=== PATIENT | male | born 1975 ===

== ENCOUNTER 2020-07-07 10:19 | Outpatient (REF) | payer OTHER, SELFPAY ==
[2020-07-07 11:27] LABS: Alanine Aminotransferase 11 U/L (0-40); Albumin Level 4.2 g/dL (3.5-5.0); Alkaline Phosphatase 76 U/L (39-117); Anion Gap 12 (12-20); Aspartate Amino Transferase 10 U/L (5-37); Bilirubin Total 0.4 mg/dL (0.0-1.0); Blood Urea Nitrogen 8 mg/dL (9-16); Calcium 9.3 mg/dL (8.4-10.2); Carbon Dioxide 29 mmol/L (22-29); Chloride 108 mmol/L (96-108); Cholesterol 130 mg/dL; Estimated Glomerular Filt Rate > 60; Glucose Fasting 140 mg/dL (60-99); HDL Cholesterol 40 mg/dL; LDL Cholesterol Calculated 76 mg/dl; Potassium 4.1 mmol/L (3.3-5.1); Sodium 145 mmol/L (135-145); Total Protein 6.9 g/dL (6.5-8.0); Triglycerides 73 mg/dL
[2020-07-07 11:42] LABS: Prostate Specific Antigen Scr 0.13 ng/mL (<0.05-4.0); TSH reflex Free T4 0.94 uIU/mL (0.32-4.0)
[2020-07-07 12:18] LABS: Creatinine Urine 30.45 mg/dL; Microalbumin Urine < 5.0 mg/L
[2020-07-07 13:14] LABS: Estimated Average Glucose 226 mg/dL; Hemoglobin A1c % 9.5 %
== END 2020-07-07 10:20 | disposition home or self-care (01) ==
LOC: HO.LAB 10:19
PROVIDERS: PCP Physician Assistant; Visit Provider Physician Assistant
DX: E11.65 Type 2 diabetes mellitus with hyperglycemia (principal); Z79.4 Long term (current) use of insulin; Z12.5 Encounter for screening for malignant neoplasm of prostate
CPT/HCPCS: 36415; 80053; 80061; 82043; 83036; 84153; 84443

== ENCOUNTER → 2020-07-14 08:01 | Outpatient (BNVA) | payer OTHER, SELFPAY | PROVIDERS: PCP Physician Assistant; Visit Provider Nurse Practitioner Gerontology ==

== ENCOUNTER → 2020-10-26 13:13 | Outpatient (BNVA) | payer OTHER, SELFPAY | PROVIDERS: PCP Physician Assistant; Visit Provider Nurse Practitioner Gerontology ==

== ENCOUNTER 2021-04-03 08:37 | Outpatient (REF) | payer OTHER, SELFPAY ==
[2021-04-03 09:10] LABS: Hematocrit 42.4 % (42.0-52.0); Hemoglobin 13.6 g/dl (14.0-18.0); Mean Corpuscular HGB Conc 32.1 g/dl (31.0-36.0); Mean Corpuscular Hemoglobin 27.5 pg (27.0-33.0); Mean Corpuscular Volume 85.7 fL (80.0-98.0); Mean Platelet Volume 11.4 fL (9.4-12.4); Platelet Count 227 X10*3/uL (160-400); Red Blood Count 4.95 X10*6/uL (4.60-5.80); Red Cell Distribution Width 13.7 % (11.0-16.0); White Blood Count 6.7 X10*3/uL (4.8-10.8)
[2021-04-03 09:31] LABS: Estimated Average Glucose 329 mg/dL; Hemoglobin A1c % 13.1 %
[2021-04-03 09:33] LABS: Alanine Aminotransferase 28 U/L (0-40); Albumin Level 3.8 g/dL (3.5-5.0); Alkaline Phosphatase 80 U/L (39-117); Anion Gap 9 (12-20); Aspartate Amino Transferase 18 U/L (5-37); Bilirubin Total 0.4 mg/dL (0.0-1.0); Blood Urea Nitrogen 10 mg/dL (9-16); Calcium 9.3 mg/dL (8.4-10.2); Carbon Dioxide 30 mmol/L (22-29); Chloride 110 mmol/L (96-108); Cholesterol 156 mg/dL; Estimated Glomerular Filt Rate > 60; Glucose Fasting 147 mg/dL (60-99); HDL Cholesterol 45 mg/dL; LDL Cholesterol Calculated 83 mg/dl; Potassium 4.8 mmol/L (3.3-5.1); Sodium 144 mmol/L (135-145); Total Protein 6.4 g/dL (6.5-8.0); Triglycerides 140 mg/dL
[2021-04-03 09:53] LABS: TSH reflex Free T4 1.78 uIU/mL (0.32-4.0)
== END 2021-04-03 08:38 | disposition home or self-care (01) ==
LOC: HO.LAB 08:37
PROVIDERS: PCP Physician Assistant; Visit Provider Physician Assistant
DX: E11.65 Type 2 diabetes mellitus with hyperglycemia (principal); I10 Essential (primary) hypertension; E78.5 Hyperlipidemia, unspecified; Z79.4 Long term (current) use of insulin; Z12.5 Encounter for screening for malignant neoplasm of prostate
CPT/HCPCS: 36415; 80053; 80061; 83036; 84153; 84443; 85027

== ENCOUNTER 2022-04-20 00:23 | Emergency (ER) | payer OTHER, SELFPAY ==
--- NOTE | ~2022-04-20 | US_ITS ---
EXAMINATION: US VENOUS ULTRASOUND WITH DOPPLER LOWER EXTREMITY, LEFT CLINICAL INFORMATION: Left lower extremity swelling. COMPARISON: None TECHNIQUE: Ultrasound of the deep veins is performed from the hip to the calf with compression sonography and color and pulse Doppler assessment. Spectral analysis with color-flow imaging is performed. FINDINGS: There is normal venous compression and respiratory variation and augmented flow. The visualized common femoral vein, superficial femoral vein, profunda femoral vein, popliteal vein, and the trifurcation region shows no evidence of deep venous thrombosis. There is no significant popliteal fossa cyst. Prominent left inguinal lymph node measuring up to 1.6 cm with preserved fatty mateusz, benign morphology and normal appearing cortex, likely reactive. If the patient's symptoms persist, followup ultrasound in 5 days 7 days might be of value to exclude proximal propagation from a non-visualized calf vein. US/US venous duplex LE IMPRESSION: No DVT demonstrated in the left lower extremity.
--- NOTE | ~2022-04-20 | XR_ITS ---
EXAMINATION: XR FOOT, LEFT CLINICAL INFORMATION: Fracture. COMPARISON: None TECHNIQUE: AP, lateral, and oblique views of the left foot. FINDINGS: Lisfranc injury with lateral dislocation of the second through fifth metatarsals. Comminuted fractures of the base of the second through fifth metatarsals. Multiple cuneiform fractures. Soft tissue swelling. No unexpected foreign bodies. XR/XR foot LT 2V IMPRESSION: Lisfranc injury with comminuted fractures of the second through fifth metatarsals and cuneiforms.
[2022-04-20 00:28] VITALS: BP 170/71; PULSE 77; RESP 18; TEMP 36.8; O2SAT 99; BMI 31.4
[2022-04-20 01:06] LABS: Eosinophils Absolute Auto 0.1 X10*3/uL (0.0-0.4); Hematocrit 38.8 % (42.0-52.0); Hemoglobin 12.5 g/dl (14.0-18.0); Imm Gran Abs Auto 0.02 X10*3/uL (0.00-0.03); Imm Gran Pct Auto 0.4 % (0.0-0.4); Mean Corpuscular HGB Conc 32.2 g/dl (31.0-36.0); PLT CLUMP 1; Red Cell Distribution Width 12.9 % (11.0-16.0); SCAN SMEAR FLAG 1
[2022-04-20 01:08] LABS: Basophils Percent Auto 0.6 % (0-2); Eosinophils Percent Auto 2.6 % (0-4); Lymphocytes Absolute Auto 1.7 X10*3/uL (1.2-4.9); Mean Corpuscular Hemoglobin 26.3 pg (27.0-33.0); Mean Corpuscular Volume 81.5 fL (80.0-98.0); Mean Platelet Volume 11.9 fL (9.4-12.4); Monocytes Absolute Auto 0.6 X10*3/uL (0.1-1.2); Monocytes Percent Auto 11.8 % (2-11); Neutrophils Absolute Auto 2.4 x10*3/uL (2.0-8.3); Neutrophils Percent Auto 49.6 % (45-73); Red Blood Count 4.76 X10*6/uL (4.60-5.80)
--- NOTE | 2022-04-20 01:14 | ED.GENADULT ---
HPI - General Adult General Chief complaint: General Medical Stated complaint: leg swollen Diabetic Time Seen by Provider: 04/20/22 00:56 Source: patient Mode of arrival: ambulatory Limitations: no limitations History of Present Illness HPI narrative: Patient comes to the emergency room complaining of left lower extremity swelling. Patient states that he is diabetic, has significant neuropathy and cannot feel his lower extremities. Patient states that approximately a month ago, a table fell on his foot, did not feel anything. The next 2 days, patient started complaining of bruising on the dorsum of his left foot. Patient did not think much. Over last month, patient has been doing a lot of walking, recently went on vacation to [place]. Patient had an ulceration pop up on the dorsum of the left foot, patient went to urgent care and was prescribed Keflex 5 days ago. Patient states it seems that he is getting better. However, the swelling is not improving. Swelling goes from the foot up to below the knee. Patient denies fever chills Also, patient states that he has not been taking any of his medications for type 2 diabetes for 5 months. Patient used to take metformin, states that he has been increasing his physical activity and watching his diet, has not check his blood glucose Related Data Previous Rx's Medication Instructions Recorded albuterol sulfate 90 mcg/actuation 1 puff inhalation Q8H 30 days #8.5 04/27/20 aerosol inhaler grams atorvastatin 20 mg tablet 20 mg PO BEDTIME #90 tabs 07/14/20 flash glucose sensor (FreeStyle 1 ea topical Q2W #2 ea 07/16/20 Clovis 14 Day Sensor kit) empagliflozin 25 mg tablet 25 mg PO QAM #30 tabs 10/26/20 (Jardiance) pen needle, diabetic 32 gauge x #50 ea 01/08/21 (BD Ultra-Fine Edna Pen Needle) ibuprofen 800 mg tablet 800 mg PO TID 15 days #45 tabs 02/13/21 insulin glargine 100 unit/mL (3 35 unit (0.35 mL) subcut QPM #15 mL 04/04/21 mL) subcutaneous pen (Lantus Solostar U-100 Insulin) dulaglutide 1.5 mg/0.5 mL 1.5 mg (0.5 mL) subcut QWEEK #4 mL 05/19/21 subcutaneous pen injector ([employer]) glipizide 5 mg tablet 5 mg PO DAILY #30 tabs 04/20/22 Allergies Allergy/AdvReac Type Severity Reaction Status Date / Time No Known Allergies Allergy Verified 02/13/21 09:57 [No Known Allergies*] Review of Systems Review of Systems: Constitutional : No Weight loss, No Fever, No Chills, No Night Sweats, No Fatigue, No Malaise ENT/Mouth : No Hearing loss, No Ear Pain, No Nasal Congestion, No Sinus Pain, No Hoarseness, No sore throat, No Rhinorrhea, No Swallowing Difficulty Eyes: No Eye Pain, No Swelling, No Redness, No Foreign Body, No Discharge, No Vision Changes Cardiovascular : No Chest Pain, No SOB, No Dyspnea on Exertion, No Orthopnea, No Edema, No Palpitations Respiratory : No Cough, No Sputum, No Wheezing, No Smoke Exposure, No Dyspnea Gastrointestinal : No Nausea, No Vomiting, No Diarrhea, No Constipation, No abdominal Pain, No Hematochezia, No Melena Genitourinary : no irregular bleeding, No Dysuria, No Urinary Frequency, No Hematuria, No Urinary Incontinence, No Urgency, No Flank Pain, No Urinary Flow Changes, No Hesitancy Musculoskeletal : No joint pain, No Myalgias, complaining of left leg lower extremity edema from the toes to below the left knee Skin : Complaining of an eschar on the dorsum of the left foot Neuro : No Weakness, No Numbness, No Paresthesias, No Loss of Consciousness, No Dizziness, No Headache Psych : No Anxiety/Panic, No Depression, No SI/HI/AH/VH, No Social Issues, Heme/Lymph: No Bruising, No Bleeding,No Lymphadenopathy Endocrine : No Polyuria, No Polydipsia, No Temperature Intolerance [facility] Past Medical History Medical History Hyperlipidemia LDL goal <100 Obesity due to excess calories Pilonidal cyst Type 2 diabetes mellitus with diabetic neuropathy, unspecified Type 2 diabetes mellitus with diabetic polyneuropathy Type 2 diabetes mellitus with hyperglycemia, with long-term current use of insulin Surgical History History of drainage of abscess Family History Family History Father No problems noted. Mother No problems noted. Paternal Grandfather Colon cancer Social History Social History (Updated 10/26/20 @ 13:14 by Javon Resendiz [facility]) Household Members: Spouse and Children Housing: House Alcohol intake: never Patient Tobacco Use Status: Never used Tobacco e-Cigarette/Vaping Use: Never Used Second Hand Smoke Exposure: No Advance Directives: No Advance Directives Information Provided: No Current occupational status: employed Physical Exam ED Vital Signs: Vital Signs - 24 hr 04/20/22 00:28 04/20/22 02:00 Temperature 98.2 F 98.1 F Pulse Rate 77 77 Respiratory Rate 18 16 Blood Pressure 170/71 H 140/72 H Pulse Oximetry 99 97 Oxygen Delivery Method Room Air Room Air BMI result Body Mass Index 31.4 Const Other: Appearance: Alert. Oriented X3. No acute distress. Eyes: Pupils equal, round and reactive to light. ENT: Pharynx normal. Neck: Normal inspection. Neck supple. No lymph nodes noted. No crepitus CVS: Normal heart rate and rhythm. Pulses normal. Normal S1 and S2 Respiratory: No respiratory distress. Breath sounds normal. No Wheezing. No rales Abdomen: Soft and nontender. No rigidity. No distention. Skin: Skin warm and dry. Dry well-healed eschar on the dorsum of the left foot, no erythema, no drainage Extremities: +1 pitting edema on the right lower extremity, patient wear compression stockings, +2 pitting edema with significant swelling in the dorsum of the foot. Patient has significant decreased sensation in both lower extremities up to below the knee Neuro: Oriented X 3. No motor deficit. No sensory deficit. Moving all extremities. No slurred speech. CN 2 through 12 grossly intact Psych: calm, cooperative, normal affect Course Course Course Narrative: Patient has been 5 days and Keflex, states that the dorsum of his foot is actually looking better. However, the swelling has no change. All of patient's labs and imaging pending. Patient's blood glucose after IV fluids and 10 units of insulin is 234. Patient asymptomatic. Patient agreeable to start p.o. medications, patient will have close follow-up with his PCP, patient may need higher dose of medications, we will start low-dose since patient has not had any medications for over 5 months. I discussed the x-ray findings and the patient with Dr. Herbert from Orthopedics, patient may be discharged home with the boot and crutches Ultrasound negative for DVT. Medications Administered Discontinued Medications Generic Name Dose Route Start Last Admin Trade Name Girish PRN Reason Stop Dose Admin Sodium Chloride 1,000 mls @ 999 mls/hr 04/20/22 01:48 04/20/22 03:05 Ns IVCONT 04/20/22 02:48 Infused .Q1H1M ONE Infusion Insulin Human Regular 10 unit 04/20/22 01:48 04/20/22 02:01 Insulin Regular, Human 100 Unit/Ml 3 Ml Vial IVPUSH 04/20/22 01:49 10 unit ONCE ONE Administration Sodium Zirconium Cyclosilicate 10 gm 04/20/22 01:48 04/20/22 02:13 Sodium Zirconium Cyclosilicate 10 Gm Powd.Pack PO 04/20/22 01:49 10 gm ONCE ONE Administration Medical Decision Making Differential Diagnosis Differential Diagnoses: The differential diagnosis associated with the presentation includes (Foot Contusion, DVT, metatarsal fracture) Consult Healthcare Provider Management of the patient was discussed with: Weigh And Charge Worker (I discussed the patient with Dr. Herbert from Orthopedics, recommendations: Lisfranc versus chart cut arthropathy. Patient can follow up outpatient. Patient will be provided with a boot and crutches and care for skin) Lab Data MDM Lab Attestation statement: I reviewed the patient's lab results. Result Diagrams: 04/20/22 00:53 04/20/22 00:53 Labs: Lab Results 04/20/22 04/20/22 04/20/22 Range/Units 00:53 00:53 00:53 WBC 4.9 (4.8-10.8) X10*3/uL RBC 4.76 (4.60-5.80) X10*6/uL Hgb 12.5 L (14.0-18.0) g/dl Hct 38.8 L (42.0-52.0) % MCV 81.5 (80.0-98.0) fL MCH 26.3 L (27.0-33.0) pg MCHC 32.2 (31.0-36.0) g/dl RDW 12.9 (11.0-16.0) % Plt Count 169 D (160-400) X10*3/uL MPV 11.9 (9.4-12.4) fL Immature Gran % (Auto) 0.4 (0.0-0.4) % Neut % (Auto) 49.6 (45-73) % Lymph % (Auto) 35.0 (20-40) % [place] % (Auto) 11.8 H (2-11) % Eos % (Auto) 2.6 (0-4) % Baso % (Auto) 0.6 (0-2) % Lymph # (Auto) 1.7 (1.2-4.9) X10*3/uL [place] # (Auto) 0.6 (0.1-1.2) X10*3/uL Eos # (Auto) 0.1 (0.0-0.4) X10*3/uL Baso # (Auto) 0.0 (0.0-0.2) X10*3/uL Abs Immat Gran (auto) 0.02 (0.00-0.03) X10*3/uL Absolute Neuts (auto) 2.4 (2.0-8.3) x10*3/uL Absolute Nucleated RBC 0.000 (0.0-0.012) X10*3/uL Nucleated RBC % (auto) 0.0 (0.0-0.2) /100WBC Sodium 133 L (135-145) mmol/L Potassium 5.5 H (3.3-5.1) mmol/L Chloride 98 (96-108) mmol/L Carbon Dioxide 25 (22-29) mmol/L Anion Gap 16 (12-20) BUN 14 (9-16) mg/dL Creatinine 1.13 (0.5-1.4) mg/dL Estim Creat Clear Calc 103.0 Estimated GFR > 60 Random Glucose 397 H* (60-115) mg/dL Lactic Acid 0.8 (0.5-2.0) mmol/L Calcium 9.2 (8.4-10.2) mg/dL Total Bilirubin 0.4 (0.0-1.0) mg/dL AST 26 (5-37) U/L ALT 17 (0-40) U/L Alkaline Phosphatase 143 H (39-117) U/L Total Protein 7.4 (6.5-8.0) g/dL Albumin 3.9 (3.5-5.0) g/dL Acetone, Qual Negative (Negative) Independent Interpretation I performed an independent interpretation of an: Ultrasound (TECHNIQUE: Ultrasound of the deep veins is performed from the hip to the calf with compression sonography and color and pulse Doppler assessment. Spectral analysis with color-flow imaging is performed. FINDINGS: There is normal venous compression and respiratory variation and augmented flow. The vi) Interpretation: Left foot x-ray: My interpretation is fractures 1st through 4th metatarsal fracture, can inform abnormality. Radiology report:FINDINGS: Lisfranc injury with lateral dislocation of the second through fifth metatarsals. Comminuted fractures of the base of the second through fifth metatarsals. Multiple cuneiform fractures. Soft tissue swelling. No unexpected foreign bodies.? XR/XR foot LT 2V IMPRESSION: Lisfranc injury with comminuted fractures of the second through fifth metatarsals and cuneiforms. Prescription Management I considered prescription management with: Pain Medication (Narcotics were considered for multiple foot fractures. However, patient has no sensation, no pain. Patient will be given NSAIDs) Chronic Conditions Patient?s care impacted by: Diabetes (Patient receiving IV fluids and insulin. Patient willing to restart medication. However, patient refuses to take metformin which he has tried before, dislikes the side effects.) Discharge Plan Discharge Clinical Impression: Metatarsal fracture, Acute hyperglycemia Patient Disposition: Home, Self-Care Instructions: Foot Fracture in Adults (ED), Diabetic Hyperglycemia (ED) Additional Instructions: Please follow-up with your primary care physician tomorrow. If you have any worsening or new symptoms, please return to the emergency room or call 911 Prescriptions: New glipizide 5 mg tablet 5 mg PO DAILY Qty: 30 0RF No Action FreeStyle Clovis 14 Day Sensor Kit 1 ea topical Q2W Qty: 2 11RF (DME) pen needle, diabetic [BD Ultra-Fine Edna Pen Needle] 32 gauge x 5/32 needle See Rx Instructions .ROUTE .MEDSUPPLY Qty: 50 4RF Rx Instructions: As directed Lantus Solostar U-100 Insulin 100 unit/mL (3 mL) insulin pen 35 unit subcut QPM Qty: 15 1RF Trulicity 1.5 mg/0.5 mL pen injector 1.5 mg subcut QWEEK Qty: 4 3RF albuterol sulfate 90 mcg/actuation HFA aerosol inhaler 1 puff inhalation Q8H 30 Days Qty: 8.5 2RF ibuprofen 800 mg tablet 800 mg PO TID 15 Days Qty: 45 0RF atorvastatin 20 mg tablet 20 mg PO BEDTIME Qty: 90 1RF Jardiance 25 mg tablet 25 mg PO QAM Qty: 30 3RF Referrals: Dashawn Herbert MD [Physician] - 2 days Stand Alone Forms: Work/School Release
[2022-04-20 01:18] LABS: Lactic Acid 0.8 mmol/L (0.5-2.0)
[2022-04-20 01:23] LABS: MANUAL DIFF FLAG NO; White Blood Count 4.9 X10*3/uL (4.8-10.8)
[2022-04-20 01:25] LABS: Platelet Count 169 X10*3/uL (160-400)
[2022-04-20 01:36] LABS: Alanine Aminotransferase 17 U/L (0-40); Albumin Level 3.9 g/dL (3.5-5.0); Alkaline Phosphatase 143 U/L (39-117); Anion Gap 16 (12-20); Aspartate Amino Transferase 26 U/L (5-37); Bilirubin Total 0.4 mg/dL (0.0-1.0); Blood Urea Nitrogen 14 mg/dL (9-16); Calcium 9.2 mg/dL (8.4-10.2); Carbon Dioxide 25 mmol/L (22-29); Chloride 98 mmol/L (96-108); Estimated Glomerular Filt Rate > 60; Glucose Random 397 mg/dL (60-115); Potassium 5.5 mmol/L (3.3-5.1); Sodium 133 mmol/L (135-145); Total Protein 7.4 g/dL (6.5-8.0)
[2022-04-20 02:00] VITALS: BP 140/72; PULSE 77; RESP 16; TEMP 36.7; O2SAT 97
[2022-04-20] MEDS: 0.9 % Sodium Chloride 1,000 ML 999 ML IVCONT (02:01)
[2022-04-20] MEDS: Insulin Regular, Human 100 UNIT/ML 3 ML VIAL 10 UNIT IVPUSH (02:01)
[2022-04-20 02:04] LABS: Acetone, serum QL Negative (Negative)
--- NOTE | 2022-04-20 02:11 | MHC.EDTECH ---
0200 rounding done pt vitals sign taken ,pt was hooked up to residential monitor by this pct ,pt 2nd set of blood culture was drawn by this pct .
[2022-04-20] MEDS: Sodium Zirconium Cyclosilicate 10 GM POWD.PACK PO (02:13)
[2022-04-20 03:11] LABS: Glucose, Whole Blood 239 mg/dL (60-115)
[2022-04-20 03:30] VITALS: BP 141/78; PULSE 78; RESP 16; O2SAT 98
[2022-04-20 03:43] LABS: Glucose, Whole Blood 218 mg/dL (60-115)
== END 2022-04-20 03:41 | disposition home or self-care (01) ==
PROVIDERS: Emergency Provider Emergency Medicine; PCP Physician Assistant
DX: S92.322A Displaced fracture of second metatarsal bone, left foot, initial encounter for closed fracture (principal); S92.332A Displaced fracture of third metatarsal bone, left foot, initial encounter for closed fracture; S92.342A Displaced fracture of fourth metatarsal bone, left foot, initial encounter for closed fracture; S92.352A Displaced fracture of fifth metatarsal bone, left foot, initial encounter for closed fracture; W22.8XXA Striking against or struck by other objects, initial encounter; R60.0 Localized edema; E11.65 Type 2 diabetes mellitus with hyperglycemia; E11.40 Type 2 diabetes mellitus with diabetic neuropathy, unspecified; E78.5 Hyperlipidemia, unspecified; E66.9 Obesity, unspecified; Z68.31 Body mass index [BMI] 31.0-31.9, adult; Y93.9 Activity, unspecified; Y92.019 Unspecified place in single-family (private) house as the place of occurrence of the external cause; Y99.9 Unspecified external cause status; Z79.02 Long term (current) use of antithrombotics/antiplatelets
CPT/HCPCS: 36415; 73620; 80053; 82009; 82947; 83605; 85025; 87040; 93971; 96361; 96374; 99284

== ENCOUNTER 2022-05-23 06:32 | Outpatient (REF) | payer OTHER, SELFPAY ==
--- NOTE | ~2022-05-23 | MR_ITS ---
EXAMINATION: MR SHOULDER WITHOUT CONTRAST, LEFT CLINICAL INFORMATION: Left shoulder pain extending down the arm. Pain in the biceps region. Evaluate for a rotator cuff tendon tear. COMPARISON: None TECHNIQUE: Multisequence MR imaging of the left shoulder was obtained without contrast on a high-field strength scanner. FINDINGS: ROTATOR CUFF: Supraspinatus and infraspinatus tendinosis. There is distal bursal surface partial tearing of the supraspinatus tendon which extends posteriorly into the intrasubstance of the infraspinatus tendon. No definite extension to the articular surface. Overall tearing measures approximately 2.7 x 1.7 cm (AP by ML). Subscapularis tendinosis with distal articular surface partial tearing measuring 1.3 cm in ML dimension. No muscle atrophy or fatty infiltration. BICEPS: Intact. CORACOACROMIAL ARCH: The undersurface of the acromion is minimally curved with no subacromial spur. Severe acromioclavicular osteoarthritis with prominent marginal osteophytes. Small amount of fluid within the subacromial-subdeltoid bursa, consistent with mild bursitis. LABRUM/CAPSULE: No displaced labral tear. Intact joint capsule. GLENOHUMERAL JOINT/MARROW: Intact articular cartilage. No acute osseous injury. Small joint effusion. MR/MR shoulder LT wo con IMPRESSION: 1. Supraspinatus and infraspinatus tendinosis. Distal bursal surface partial tearing of the supraspinatus tendon which extends posteriorly into the intrasubstance of the infraspinatus tendon. No definite extension to the articular surface. Overall tearing measures 2.7 x 1.7 cm (AP by ML). Subscapularis tendinosis with distal articular surface partial tearing measuring 1.3 cm in ML dimension. 2. Severe acromioclavicular osteoarthritis with prominent marginal osteophytes. Mild subacromial-subdeltoid bursitis. 3. Small glenohumeral joint effusion.
[2022-05-23 06:50] LABS: MANUAL DIFF FLAG NO
[2022-05-23 07:24] LABS: Basophils Percent Auto 0.4 % (0-2); Eosinophils Absolute Auto 0.2 X10*3/uL (0.0-0.4); Eosinophils Percent Auto 2.8 % (0-4); Hematocrit 43.7 % (42.0-52.0); Hemoglobin 14.1 g/dl (14.0-18.0); Imm Gran Abs Auto 0.02 X10*3/uL (0.00-0.03); Imm Gran Pct Auto 0.3 % (0.0-0.4); Lymphocytes Absolute Auto 2.2 X10*3/uL (1.2-4.9); Lymphocytes Percent Auto 27.7 % (20-40); Mean Corpuscular HGB Conc 32.3 g/dl (31.0-36.0); Mean Corpuscular Hemoglobin 26.7 pg (27.0-33.0); Mean Corpuscular Volume 82.8 fL (80.0-98.0); Monocytes Absolute Auto 0.4 X10*3/uL (0.1-1.2); Monocytes Percent Auto 5.4 % (2-11); Neutrophils Percent Auto 63.4 % (45-73); Platelet Count 233 X10*3/uL (160-400); Red Blood Count 5.28 X10*6/uL (4.60-5.80); Red Cell Distribution Width 13.5 % (11.0-16.0); White Blood Count 7.9 X10*3/uL (4.8-10.8)
[2022-05-23 07:50] LABS: Estimated Average Glucose 275 mg/dL; Hemoglobin A1c % 11.2 %
[2022-05-23 08:06] LABS: Alanine Aminotransferase 26 U/L (0-40); Albumin Level 4.1 g/dL (3.5-5.0); Alkaline Phosphatase 86 U/L (39-117); Anion Gap 12 (12-20); Aspartate Amino Transferase 14 U/L (5-37); Bilirubin Total 0.5 mg/dL (0.0-1.0); Blood Urea Nitrogen 8 mg/dL (9-16); Calcium 9.4 mg/dL (8.4-10.2); Carbon Dioxide 27 mmol/L (22-29); Chloride 105 mmol/L (96-108); Cholesterol 173 mg/dL; Estimated Glomerular Filt Rate > 60; Glucose Random 190 mg/dL (60-115); HDL Cholesterol 51 mg/dL; LDL Cholesterol Calculated 95 mg/dl; Potassium 4.4 mmol/L (3.3-5.1); Sodium 140 mmol/L (135-145); Triglycerides 135 mg/dL
[2022-05-23 08:09] LABS: TSH reflex Free T4 2.46 uIU/mL (0.32-4.0); Vitamin D 25-OH Total 23.7 ng/mL (>30)
[2022-05-23 08:19] LABS: Creatinine Urine 40.59 mg/dL; Microalbum/Creatinine Ratio Ur 46.8 ug/mg cr
== END 2022-05-23 06:33 | disposition home or self-care (01) ==
LOC: HO.MRI 06:32
PROVIDERS: PCP Physician Assistant; Visit Provider Nurse Practitioner Family
DX: Z13.21 Encounter for screening for nutritional disorder (principal); Z13.0 Encounter for screening for diseases of the blood and blood-forming organs and certain disorders involving the immune mechanism; Z13.29 Encounter for screening for other suspected endocrine disorder; M75.102 Unspecified rotator cuff tear or rupture of left shoulder, not specified as traumatic; E78.5 Hyperlipidemia, unspecified; E11.65 Type 2 diabetes mellitus with hyperglycemia; Z79.4 Long term (current) use of insulin
CPT/HCPCS: 36415; 73221; 80053; 80061; 82043; 82306; 83036; 84443; 85025

== ENCOUNTER 2022-06-29 | Outpatient (REF) | payer OTHER, SELFPAY ==
--- NOTE | ~2022-06-29 | XR_ITS ---
EXAMINATION: XR SHOULDER, LEFT CLINICAL INFORMATION: Shoulder pain. COMPARISON: MR left shoulder 05/23/2022. TECHNIQUE: The left shoulder is imaged in 3 views. FINDINGS: No fracture, dislocation, destructive process. The glenohumeral joint appears normal. There are degenerative changes again noted acromioclavicular joint with joint narrowing and spurring. No visible rotator cuff calcifications. XR/XR shoulder LT min 2V IMPRESSION: 1. Degenerative changes acromioclavicular joint. 2. No visible rotator cuff calcifications.
== END 2022-06-29 00:01 | disposition home or self-care (01) ==
LOC: HO.HOSX
PROVIDERS: Visit Provider Physician Assistant
DX: M75.102 Unspecified rotator cuff tear or rupture of left shoulder, not specified as traumatic (principal); M25.512 Pain in left shoulder
CPT/HCPCS: 20610; 73030; 99202; J1020

== ENCOUNTER → 2022-10-11 13:05 | Outpatient (BNVA) | payer OTHER, SELFPAY | PROVIDERS: PCP Physician Assistant; Visit Provider Orthopaedic Surgery | DX: M75.102 Unspecified rotator cuff tear or rupture of left shoulder, not specified as traumatic (principal); M12.812 Other specific arthropathies, not elsewhere classified, left shoulder; E11.65 Type 2 diabetes mellitus with hyperglycemia; Z79.4 Long term (current) use of insulin | CPT/HCPCS: 99212 ==

== ENCOUNTER 2022-11-01 06:41 | Outpatient (REF) | payer OTHER, SELFPAY ==
[2022-11-01 07:14] LABS: Hematocrit 41.6 % (42.0-52.0); Hemoglobin 13.5 g/dl (14.0-18.0); Mean Corpuscular HGB Conc 32.5 g/dl (31.0-36.0); Mean Corpuscular Hemoglobin 27.7 pg (27.0-33.0); Mean Corpuscular Volume 85.2 fL (80.0-98.0); Mean Platelet Volume 11.4 fL (9.4-12.4); Platelet Count 206 X10*3/uL (160-400); Red Blood Count 4.88 X10*6/uL (4.60-5.80); Red Cell Distribution Width 13.2 % (11.0-16.0)
[2022-11-01 07:53] LABS: Alanine Aminotransferase 21 U/L (0-40); Alkaline Phosphatase 92 U/L (39-117); Anion Gap 12 (12-20); Aspartate Amino Transferase 17 U/L (5-37); Bilirubin Total 0.4 mg/dL (0.0-1.0); Blood Urea Nitrogen 6 mg/dL (9-16); Calcium 9.9 mg/dL (8.4-10.2); Carbon Dioxide 29 mmol/L (22-29); Chloride 109 mmol/L (96-108); Cholesterol 173 mg/dL; Estimated Glomerular Filt Rate > 60; Glucose Fasting 201 mg/dL (60-99); HDL Cholesterol 45 mg/dL; LDL Cholesterol Calculated 103 mg/dl; Potassium 4.9 mmol/L (3.3-5.1); Sodium 145 mmol/L (135-145); Triglycerides 126 mg/dL
[2022-11-01 08:14] LABS: Prostate Specific Antigen Scr 0.13 ng/mL (<0.05-4.0)
== END 2022-11-01 06:42 | disposition home or self-care (01) ==
LOC: HO.LAB 06:41
PROVIDERS: PCP Physician Assistant; Visit Provider Physician Assistant
DX: Z12.5 Encounter for screening for malignant neoplasm of prostate (principal); E11.65 Type 2 diabetes mellitus with hyperglycemia; E78.5 Hyperlipidemia, unspecified; Z79.4 Long term (current) use of insulin
CPT/HCPCS: 36415; 80053; 80061; 84153; 85027

== ENCOUNTER 2023-11-06 12:55 | Outpatient (AMB) | payer OTHER, SELFPAY ==
--- NOTE | 2023-11-06 13:28 | AM.OFFWIN_ITS ---
Intake Vital Signs 11/06/23 13:35 Height 6 ft 1 in BP 140/80 H Blood Pressure Location Rt brachial Position Sitting Pulse 78 Pulse Source Pulse Oximeter Temp 98.0 F Temp Source Temporal Artery Scan Pulse Oximetry (%) 98 Intake Visit Reasons: EP RT foot wound/Diabetic Intake Note: pt is here for right foot wound, unsure how it happened. patient stattes he is diabetic Patient Tobacco Use Status: Never used Tobacco Allergies empagliflozin [From Jardiance] Adverse Reaction (Intermediate, Verified 11/06/23 13:36) GI upset Do you need a note to return to daycare/school/sports/work: No HPI HPI Comments History of Present Illness Details Patient is a 48-year-old male with a history of neuropathy complaining of a foot wound to his right foot x2 weeks. He states he does not really know when or how it happened but he noticed it about a week or 2 ago and he has been cleaning it twice daily but it does not seem to be getting any better. He said his blood sugars have been running high lately. He states he has not noticed any purulent fluid draining from it and denies any fevers. He states it is not painful however he has neuropathy. He denies any trauma to the area. [facility] Medical History Hyperlipidemia LDL goal <100 Left rotator cuff tear Metatarsal fracture Obesity due to excess calories Pilonidal cyst Type 2 diabetes mellitus with diabetic neuropathy, unspecified Type 2 diabetes mellitus with diabetic polyneuropathy Type 2 diabetes mellitus with hyperglycemia, with long-term current use of insulin Vitamin D deficiency Surgical History History of drainage of abscess Family History Father No problems noted. Mother No problems noted. Paternal Grandfather Colon cancer Social History Household Members: Spouse and Children Housing: House Alcohol intake: never Patient Tobacco Use Status: Never used Tobacco e-Cigarette/Vaping Use: Never Used Second Hand Smoke Exposure: No Current occupational status: employed Cognitive needs: No Hearing needs: No Vision needs: No Review of Systems Const All systems reviewed & are unremarkable except as noted in HPI and below Physical Exam Vital Signs: Last Vital Signs Temp 98.0 F 11/06/23 13:35 Pulse 78 11/06/23 13:35 BP 140/80 H 11/06/23 13:35 Pulse Ox 98 11/06/23 13:35 Const General: cooperative, healthy appearing, comfortable, no acute distress and well developed Orientation/consciousness: patient oriented x3 Limitations: no limitations HEENT Head: Yes normal to inspection Eyes General: appearance normal, both eyes and all related structures Neck Neck: Yes normal visual inspection and Yes full ROM Resp Effort & Inspection: normal respiratory effort and able to speak in complete sentences Skin General skin exam: no rashes or lesions noted Neuro General: patient oriented x3 Extrem General: Yes normal to inspection Left lower extremity: foot (1 cm circular erythematous wound with induration ar ound it, scant purulence) Details: normal capillary refill, toes with normal ROM, vascular exam Details: normal capillary refill, tendon exam Details: active flexion normal and active extension normal and motor-sensory exam Details: light-touch abnormal; no tenderness, no unusual warmth and no ecchymosis Assessment & Plan Assessment & Plan (1) Wound, open, foot: Code(s): S91.309A - Unspecified open wound, unspecified foot, initial encounter Qualifiers: Encounter type: initial encounter Laterality: right Qualified Code(s): S91.301A - Unspecified open wound, right foot, initial encounter Plan: Diabetic foot wound that is not healing and very close to the base of the 5th metatarsal, patient recommended to go to the emergency department for CT scan to assess for osteomyelitis. Called ER with expect Plan See above Coding Level of Care Code Est Pt Level 5 (45193) Diagnoses Open wound of right foot, initial encounter S91.301A Encounter type: initial encounter Laterality: right
[2023-11-06 13:35] VITALS: BP 140/80; PULSE 78; TEMP 36.7; O2SAT 98
== END 2023-11-06 14:05 | disposition home or self-care (01) ==
PROVIDERS: PCP Physician Assistant; Visit Provider Physician Assistant
DX: S91.301A Unspecified open wound, right foot, initial encounter (principal)
CPT/HCPCS: 99215

== ENCOUNTER 2023-11-06 15:06 | Emergency (ER) | payer OTHER, SELFPAY ==
--- NOTE | ~2023-11-06 | XR_ITS ---
EXAMINATION: XR FOOT, RIGHT CLINICAL INFORMATION: Wound right foot. COMPARISON: None available. TECHNIQUE: Three views of the right foot. FINDINGS: Small skin defect at the lateral side of the foot near the base of the fifth metatarsal. No radiopaque foreign body. No air in the soft tissue. No focal bone lesion or bone destruction. No abnormal periosteal reaction. No radiographic evidence for osteomyelitis. Large plantar calcaneal spur. Small degenerative spur at the dorsum of the foot related to the cuneiforms seen on lateral view Vascular calcifications in the soft tissues around the ankle. XR/XR foot RT 2V IMPRESSION: Small skin defect at the lateral side of the foot near the base of the fifth metatarsal. No radiopaque foreign body or air in the soft tissue. No radiographic evidence for osteomyelitis.
--- NOTE | 2023-11-06 15:09 | ED_ITS ---
HPI - General Adult General Chief complaint: Skin/Abscess/Foreign Body Stated complaint: foot pain, diabetic Time Seen by Provider: 11/06/23 18:54 History of Present Illness ED Provider: Dr. Menjivar HPI narrative: 48 y/o M patient; PMH T2DM, HLD; presents from [place] with concern for diabetic wound to right foot. Denies: fever or chills, SOB, cough/congestion, chest pain, nausea/vomiting, abdominal pain. Related Data Previous Rx's ?Medication ?Instructions ?Recorded flash glucose sensor (FreeStyle 1 ea topical Q2W #2 ea 07/16/20 Clovis 14 Day Sensor kit) atorvastatin 20 mg tablet 20 mg PO BEDTIME #90 tabs 05/14/22 blood pressure test kit-medium #1 ea 05/14/22 pen needle, diabetic 32 gauge x #50 ea 05/14/22 (BD Ultra-Fine Edna Pen Needle) blood-glucose meter (FreeStyle #1 ea 06/27/22 Lite Meter kit) blood sugar diagnostic (FreeStyle #100 ea 07/01/22 Lite Strips) lancets 28 gauge (FreeStyle #100 ea 07/01/22 Lancets) albuterol sulfate 90 mcg/actuation 2 puff inhalation Q6H PRN 07/03/22 aerosol inhaler (Ventolin HFA) shortness of breath or wheezing #8.5 grams dulaglutide 3 mg/0.5 mL 3 mg (0.5 mL) subcut QWEEK 4 weeks 10/31/22 subcutaneous pen injector #2 mL (Trulicity) cholecalciferol (vitamin D3) 25 25 mcg PO DAILY #30 caps 01/01/23 mcg (1,000 unit) capsule ibuprofen 800 mg tablet 800 mg PO TID 15 days #45 tabs 01/01/23 insulin glargine 100 unit/mL (3 30 unit (0.3 mL) subcut QPM #15 mL 05/02/23 mL) subcutaneous pen (Lantus Solostar U-100 Insulin) cephalexin 500 mg capsule 500 mg PO QID 7 days #28 caps 11/06/23 doxycycline hyclate 100 mg capsule 100 mg PO BID 7 days #14 caps 11/06/23 Allergies Allergy/AdvReac Type Severity Reaction Status Date / Time empagliflozin AdvReac Intermediate GI upset Verified 11/06/23 15:28 [From Jardiance] Review of Systems 2 Review of Systems: Yes all other systems are reviewed and are negative Neurologic: Denies Sensory deficit (Neuro) [facility] Past Medical History Attestation statement: The following information was validated with the patient. Source: old records reviewed Medical History Vitamin D deficiency Left rotator cuff tear Metatarsal fracture Hyperlipidemia LDL goal <100 Pilonidal cyst Type 2 diabetes mellitus with diabetic neuropathy, unspecified Obesity due to excess calories Type 2 diabetes mellitus with hyperglycemia, with long-term current use of insulin Type 2 diabetes mellitus with diabetic polyneuropathy Surgical History History of drainage of abscess Family History Family History Father No problems noted. Mother No problems noted. Paternal Grandfather Colon cancer Social History Social History Household Members: Spouse and Children Housing: House Alcohol intake: never Patient Tobacco Use Status: Never used Tobacco e-Cigarette/Vaping Use: Never Used Second Hand Smoke Exposure: No Advance Directives: No Advance Directives Information Provided: No Current occupational status: employed Cognitive needs: No Hearing needs: No Vision needs: No Physical Exam ED Vital Signs: Vital Signs - 24 hr 11/06/23 15:27 11/06/23 19:18 Temperature 97.2 F 98.4 F Pulse Rate 70 68 Respiratory Rate 18 20 Blood Pressure 165/66 H 143/76 H Pulse Oximetry 100 99 Oxygen Delivery Method Room Air Room Air BMI result Body Mass Index 32.2 Patient is afebrile, mildly hypertensive. Const General: cooperative Orientation/consciousness: patient oriented x3 HENMT Head: Yes normal to inspection and Yes atraumatic Eyes General: appearance normal, both eyes and all related structures Pupils: Equal, round and reactive pupils present EOM: EOMs intact bilaterally Neck Neck: Yes normal visual inspection, Yes full ROM, Yes supple and No tender Chest Chest palpation & inspection: normal inspection of the chest and normal palpation of entire chest wall Resp Effort & Inspection: normal respiratory effort, able to speak in complete sentences, no cough and no respiratory distress Auscultation: clear to auscultation bilaterally Cardio Rate: regular rate Rhythm: regular rhythm Peripheral pulses: Peripheral pulses 2+ throughout GI Inspection: Yes normal to inspection, No Abdominal wall edema and No distended Palpation (GI): Soft to palpation, not firm, nontender, no guarding and not rigid Auscultation: normal bowel sounds Neuro General: patient oriented x3 Cranial nerves: Yes Equal, round and reactive pupils present Motor exam (neuro): 5/5 motor strength present throughout Sensory Exam: No Sensory deficit (Neuro) Extrem Other: Right lateral aspect of mid-foot with ulceration without surrounding erythema, induration or fluctuance. NVI. FROM. Diminished sensation. Course Course Course Narrative: This is an RME done by ROSALIND Cardenas: Additional HPI, ROS, PE not included below will be deferred to primary provider. 48 yo m hx dm w/ neuropathy presents from [facility] walk in for diabetic foot wound X 2 weeks not improving. Was advised to come in from the walk in. Denies cp, sob, nausea, vomiting, trauma, tingling. Numbness at baseline due to neuropathy Appearance: Alert.? Oriented X3.? No acute cardiopulmonary distress distress.? Head: Normocephalic, atraumatic, no step-offs or deformities CVS: Pulses normal.? Respiratory: No respiratory distress.? Abdomen: Soft and nontender.? Skin: ? Normal skin color. Extremities: 5/5 strength to bilateral upper and lower extremities Neuro: Oriented X 3.? No motor deficit.? No sensory deficit. Reevaluation(s) Reevaluation #1: Patient is afebrile and mildly hypertensive. Reviewed triage labs. No significant leukocytosis. Potassium 5.4. Cr 1.12 (prior 0.77 on 11/01/2022). Glucose 451 - improved to 361. CRP 0.66. XR without evidence of OM. Received Lokelma for hyperkalemia. Labs with mild hyperkalemia, mild TYRESE, hyperglycemia without evidence of DKA or HHS. No evidence of significant infection of right diabetic foot ulceration. Does NOT probe to bone. Providing 1L IVF and IV insulin. Will start on prophylactic antibiotics with Keflex and Doxycycline. Repeat BMP with improvement in hyperglycemia and hyperkalemia, improvement in Cr. Shared decision making with patient regarding admission versus discharge to home to trial out-patient antibiotics - will plan on discharge to home on PO antibiotics and out-patient re-evaluation within 3 days. Strict return precautions given. Medications Administered Discontinued Medications Generic Name Dose Route Start Last Admin Trade Name Girish PRN Reason Stop Dose Admin Cephalexin HCl 500 mg 11/06/23 19:31 11/06/23 19:43 Cephalexin 500 Mg Capsule PO 11/06/23 19:32 500 mg ONCE ONE Administration Doxycycline Monohydrate 100 mg 11/06/23 19:31 11/06/23 19:43 Doxycycline Monohydrate 100 Mg Capsule PO 11/06/23 19:32 100 mg ONCE ONE Administration Sodium Chloride 1,000 mls @ 999 mls/hr 11/06/23 19:30 11/06/23 19:43 Ns IV 11/06/23 20:30 999 mls/hr .Q1H1M LORI Administration Insulin Human Lispro 6 unit 11/06/23 19:39 11/06/23 19:43 Insulin Lispro 100 Unit/Ml 3 Ml Vial SUBCUT 11/06/23 19:40 6 unit ONCE ONE Administration Sodium Zirconium Cyclosilicate 10 gm 11/06/23 16:30 11/06/23 18:10 Sodium Zirconium Cyclosilicate 10 Gm Powd.Pack PO 11/06/23 16:31 10 gm ONCE ONE Administration Medical Decision Making Lab Data 11/06/23 15:55 11/06/23 20:24 Labs: Lab Results 11/06/23 11/06/23 11/06/23 Range/Units 15:55 18:04 19:33 WBC 8.7 (4.8-10.8) X10*3/uL RBC 5.00 (4.60-5.80) X10*6/uL Hgb 13.9 L (14.0-18.0) g/dl Hct 41.6 L (42.0-52.0) % MCV 83.2 (80.0-98.0) fL MCH 27.8 (27.0-33.0) pg MCHC 33.4 (31.0-36.0) g/dl RDW 12.8 (11.0-16.0) % Plt Count 220 (160-400) X10*3/uL MPV 11.6 (9.4-12.4) fL Immature Gran % (Auto) 0.5 H (0.0-0.4) % Neut % (Auto) 67.2 (45-73) % Lymph % (Auto) 23.6 (20-40) % Pender % (Auto) 5.4 (2-11) % Eos % (Auto) 3.0 (0-4) % Baso % (Auto) 0.3 (0-2) % Lymph # (Auto) 2.0 (1.2-4.9) X10*3/uL Pender # (Auto) 0.5 (0.1-1.2) X10*3/uL Eos # (Auto) 0.3 (0.0-0.4) X10*3/uL Baso # (Auto) 0.0 (0.0-0.2) X10*3/uL Abs Immat Gran (auto) 0.04 H (0.00-0.03) X10*3/uL Absolute Neuts (auto) 5.8 (2.0-8.3) x10*3/uL Absolute Nucleated RBC 0.000 (0.0-0.012) X10*3/uL Nucleated RBC % (auto) 0.0 (0.0-0.2) /100WBC ESR 10 (0-15) MM/HR Sodium 132 L (135-145) mmol/L Potassium 5.4 H (3.3-5.1) mmol/L Chloride 97 (96-108) mmol/L Carbon Dioxide 27 (22-29) mmol/L Anion Gap 13 (12-20) BUN 13 (9-16) mg/dL Creatinine 1.12 (0.5-1.4) mg/dL Estim Creat Clear Calc 102.8 Estimated GFR > 60 POC Glucose 361 H* 296 H (60-115) mg/dL Random Glucose 451 H* (60-115) mg/dL Calcium 10.0 (8.4-10.2) mg/dL Magnesium 2.0 (1.6-2.6) mg/dL Total Bilirubin 0.4 (0.0-1.0) mg/dL AST 17 (5-37) U/L ALT 26 (0-40) U/L Alkaline Phosphatase 129 H (39-117) U/L C-Reactive Protein 0.66 H (< or = 0.50) mg/dL Total Protein 7.6 (6.5-8.0) g/dL Albumin 4.3 (3.5-5.0) g/dL 11/06/23 Range/Units 20:24 WBC (4.8-10.8) X10*3/uL RBC (4.60-5.80) X10*6/uL Hgb (14.0-18.0) g/dl Hct (42.0-52.0) % MCV (80.0-98.0) fL MCH (27.0-33.0) pg MCHC (31.0-36.0) g/dl RDW (11.0-16.0) % Plt Count (160-400) X10*3/uL MPV (9.4-12.4) fL Immature Gran % (Auto) (0.0-0.4) % Neut % (Auto) (45-73) % Lymph % (Auto) (20-40) % Pender % (Auto) (2-11) % Eos % (Auto) (0-4) % Baso % (Auto) (0-2) % Lymph # (Auto) (1.2-4.9) X10*3/uL Pender # (Auto) (0.1-1.2) X10*3/uL Eos # (Auto) (0.0-0.4) X10*3/uL Baso # (Auto) (0.0-0.2) X10*3/uL Abs Immat Gran (auto) (0.00-0.03) X10*3/uL Absolute Neuts (auto) (2.0-8.3) x10*3/uL Absolute Nucleated RBC (0.0-0.012) X10*3/uL Nucleated RBC % (auto) (0.0-0.2) /100WBC ESR (0-15) MM/HR Sodium 140 (135-145) mmol/L Potassium 4.7 (3.3-5.1) mmol/L Chloride 104 (96-108) mmol/L Carbon Dioxide 28 (22-29) mmol/L Anion Gap 13 (12-20) BUN 11 (9-16) mg/dL Creatinine 1.02 (0.5-1.4) mg/dL Estim Creat Clear Calc 112.9 Estimated GFR > 60 POC Glucose (60-115) mg/dL Random Glucose 299 H (60-115) mg/dL Calcium 9.9 (8.4-10.2) mg/dL Magnesium (1.6-2.6) mg/dL Total Bilirubin (0.0-1.0) mg/dL AST (5-37) U/L ALT (0-40) U/L Alkaline Phosphatase (39-117) U/L C-Reactive Protein (< or = 0.50) mg/dL Total Protein (6.5-8.0) g/dL Albumin (3.5-5.0) g/dL Radiology Impression Discussion of test interpretation with radiology: I have reviewed the radiologist's reading. Radiologist Impression: EXAMINATION: XR FOOT, RIGHT CLINICAL INFORMATION: Wound right foot. COMPARISON: None available. TECHNIQUE: Three views of the right foot. FINDINGS: Small skin defect at the lateral side of the foot near the base of the fifth metatarsal. No radiopaque foreign body. No air in the soft tissue. No focal bone lesion or bone destruction. No abnormal periosteal reaction. No radiographic evidence for osteomyelitis. Large plantar calcaneal spur. Small degenerative spur at the dorsum of the foot related to the cuneiforms seen on lateral view Vascular calcifications in the soft tissues around the ankle. XR/XR foot RT 2V IMPRESSION: Small skin defect at the lateral side of the foot near the base of the fifth metatarsal. No radiopaque foreign body or air in the soft tissue. No radiographic evidence for osteomyelitis. Discharge Plan Discharge Clinical Impression: Hyperglycemia, TYRESE (acute kidney injury), Diabetic foot ulcer, Hyperkalemia Patient Disposition: Home, Self-Care Instructions: Diabetic Foot Ulcers (ED) Additional Instructions: As we discussed, you were seen for a foot wound. You are being started on 2 antibiotics which you should take as prescribed - take the Keflex 4 times a day for 7 days and the Doxycycline 2 times a day for 7 days. Make sure you follow a strict diabetic diet during this time and increase your water intake. You need to have your foot re-assessed in the next 48 - 72 hours. Reasons to return immediately to the emergency department: Temp >100.4F Vomiting Pus from the foot, change in color of the foot, increased swelling of the foot Prescriptions: New doxycycline hyclate 100 mg capsule 100 mg PO BID 7 Days Qty: 14 0RF cephalexin 500 mg capsule 500 mg PO QID 7 Days Qty: 28 0RF No Action FreeStyle Clovis 14 Day Sensor Kit 1 ea topical Q2W Qty: 2 11RF (DME) FreeStyle Lite Strips Strip See Rx Instructions .Route Qty: 100 2RF Rx Instructions: DAILY (DME) lancets [FreeStyle Lancets] 28 gauge misc See Rx Instructions .MEDSUPPLY Qty: 100 3RF Rx Instructions: As directed albuterol sulfate [Ventolin HFA] 90 mcg/actuation HFA aerosol inhaler 2 puff inhalation Q6H PRN (Reason: shortness of breath or wheezing) Qty: 8.5 0RF cholecalciferol (vitamin D3) 25 mcg (1,000 unit) capsule 25 mcg PO DAILY Qty: 30 3RF ibuprofen 800 mg tablet 800 mg PO TID 15 Days Qty: 45 0RF Lantus Solostar U-100 Insulin 100 unit/mL (3 mL) insulin pen 30 unit subcut QPM Qty: 15 0RF Trulicity 3 mg/0.5 mL pen injector 3 mg subcut QWEEK 28 Days Qty: 2 3RF atorvastatin 20 mg tablet 20 mg PO BEDTIME Qty: 90 1RF (DME) pen needle, diabetic [BD Ultra-Fine Edna Pen Needle] 32 gauge x 5/32 needle See Rx Instructions .ROUTE .MEDSUPPLY Qty: 50 4RF Rx Instructions: As directed (DME) blood pressure test kit-medium Kit See Rx Instructions miscellaneous .MEDSUPPLY Qty: 1 0RF Rx Instructions: As directed (DME) blood-glucose meter [FreeStyle Lite Meter] Kit See Rx Instructions .Route Qty: 1 0RF Rx Instructions: As directed Print Language: [place] Zealander
[2023-11-06 15:27] VITALS: BP 165/66; PULSE 70; RESP 18; TEMP 36.2; O2SAT 100; BMI 32.2
[2023-11-06 15:59] LABS: MANUAL DIFF FLAG NO
[2023-11-06 16:01] LABS: Basophils Percent Auto 0.3 % (0-2); Eosinophils Absolute Auto 0.3 X10*3/uL (0.0-0.4); Hematocrit 41.6 % (42.0-52.0); Hemoglobin 13.9 g/dl (14.0-18.0); Imm Gran Abs Auto 0.04 X10*3/uL (0.00-0.03); Imm Gran Pct Auto 0.5 % (0.0-0.4); Lymphocytes Percent Auto 23.6 % (20-40); Mean Corpuscular HGB Conc 33.4 g/dl (31.0-36.0); Mean Corpuscular Hemoglobin 27.8 pg (27.0-33.0); Mean Corpuscular Volume 83.2 fL (80.0-98.0); Mean Platelet Volume 11.6 fL (9.4-12.4); Monocytes Absolute Auto 0.5 X10*3/uL (0.1-1.2); Monocytes Percent Auto 5.4 % (2-11); Neutrophils Absolute Auto 5.8 x10*3/uL (2.0-8.3); Neutrophils Percent Auto 67.2 % (45-73); Platelet Count 220 X10*3/uL (160-400); Red Cell Distribution Width 12.8 % (11.0-16.0); White Blood Count 8.7 X10*3/uL (4.8-10.8)
[2023-11-06 16:28] LABS: Alanine Aminotransferase 26 U/L (0-40); Albumin Level 4.3 g/dL (3.5-5.0); Alkaline Phosphatase 129 U/L (39-117); Anion Gap 13 (12-20); Aspartate Amino Transferase 17 U/L (5-37); Bilirubin Total 0.4 mg/dL (0.0-1.0); Blood Urea Nitrogen 13 mg/dL (9-16); C Reactive Protein 0.66 mg/dL (< or = 0.50); Carbon Dioxide 27 mmol/L (22-29); Chloride 97 mmol/L (96-108); Creatinine Clr Calc Pharmacy 102.8; Estimated Glomerular Filt Rate > 60; Glucose Random 451 mg/dL (60-115); Potassium 5.4 mmol/L (3.3-5.1); Sodium 132 mmol/L (135-145); Total Protein 7.6 g/dL (6.5-8.0)
[2023-11-06 16:44] LABS: Erythrocyte Sedimentation Rate 10 MM/HR (0-15)
[2023-11-06 18:08] LABS: Glucose, Whole Blood 361 mg/dL (60-115)
[2023-11-06] MEDS: Sodium Zirconium Cyclosilicate 10 GM POWD.PACK PO (18:10)
[2023-11-06 19:18] VITALS: BP 143/76; PULSE 68; RESP 20; TEMP 36.9; O2SAT 99
[2023-11-06 19:39] LABS: Glucose, Whole Blood 296 mg/dL (60-115)
[2023-11-06] MEDS: cephALEXin 500 MG CAPSULE PO (19:43)
[2023-11-06] MEDS: Doxycycline Monohydrate 100 MG CAPSULE PO (19:43)
[2023-11-06] MEDS: 0.9 % Sodium Chloride 1,000 ML 999 ML IV (19:43)
[2023-11-06] MEDS: Insulin Lispro 100 UNIT/ML 3 ML VIAL 6 UNIT SUBCUT (19:43)
[2023-11-06 20:50] LABS: Anion Gap 13 (12-20); Blood Urea Nitrogen 11 mg/dL (9-16); Calcium 9.9 mg/dL (8.4-10.2); Carbon Dioxide 28 mmol/L (22-29); Chloride 104 mmol/L (96-108); Creatinine Clr Calc Pharmacy 112.9; Estimated Glomerular Filt Rate > 60; Glucose Random 299 mg/dL (60-115); Potassium 4.7 mmol/L (3.3-5.1); Sodium 140 mmol/L (135-145)
[2023-11-06 20:52] VITALS: BP 111/69; PULSE 77; RESP 19; TEMP 36.8; O2SAT 100
[2023-11-06 21:02] VITALS: BP 111/69; PULSE 77; RESP 19; TEMP 36.8; O2SAT 100
== END 2023-11-06 21:03 | disposition home or self-care (01) ==
PROVIDERS: Physician Assistant; Emergency Provider Emergency Medicine; PCP Physician Assistant
DX: E11.621 Type 2 diabetes mellitus with foot ulcer (principal); E11.65 Type 2 diabetes mellitus with hyperglycemia; E87.5 Hyperkalemia; Z79.4 Long term (current) use of insulin; Z79.899 Other long term (current) drug therapy
CPT/HCPCS: 36415; 73620; 80048; 80053; 82947; 83735; 85025; 85652; 86140; 96360; 99283; 99284

== ENCOUNTER 2023-11-18 15:55 | Outpatient (AMB) | payer OTHER, SELFPAY ==
--- NOTE | 2023-11-18 16:02 | MHC.PC.OV ---
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 Accompanied by: Self / Same As Patient Allergies empagliflozin [From Jardiance] Adverse Reaction (Intermediate, Verified 11/18/23 16:21) GI upset Medication List - Last Reconciled 11/18/23 by iNcho Saravia PA-C albuterol sulfate 90 mcg/actuation (Ventolin HFA) 2 puffs inhalation Q6H PRN atorvastatin 20 mg PO BEDTIME blood pressure test kit-medium As directed blood sugar diagnostic (FreeStyle Lite Strips) DAILY blood-glucose meter (FreeStyle Lite Meter kit) As directed cephalexin 500 mg PO QID 7 days cholecalciferol (vitamin D3) 25 mcg PO DAILY doxycycline hyclate 100 mg PO BID 7 days dulaglutide (Trulicity) 3 mg (0.5 mL) subcut QWEEK 4 weeks flash glucose sensor (FreeStyle Clovis 14 Day Sensor kit) 1 ea topical Q2W ibuprofen 800 mg PO TID 15 days insulin glargine (Lantus Solostar U-100 Insulin) 30 units (0.3 mL) subcut QPM lancets (FreeStyle Lancets) As directed pen needle, diabetic (BD Ultra-Fine Edna Pen Needle) As directed Tobacco use date assessed: 11/18/23 Dental Screening Dental Screen Date: 11/18/23 Did you have a dental visit in the last 12 months?: Yes Did you have a dental problem in the last 6 months where you did not have access to dental care?: No Was dental information given to patient?: Patient has dentist HPI Abscess on RT foot HPI Details Patient is a 48-year-old male here today for follow-up visit. Patient has a past medical history significant for uncontrolled type 2 diabetes, hyperlipidemia, asthma. recently seen at walk-in clinic and ER for right foot diabetic ulcer. Has been placed on 2 antibiotics cephalexin and doxycycline. he reports he has no further cellulitis or drainage from the ulcer. Has finished up all antibiotics. .. Type 2 diabetes: He admits that his diabetes lately has not been well controlled, Has been noncompliant with diabetic diet and education.. Has not been able to get Trulicity from pharmacy. Has been using Lantus 30 units b.i.d.. PLAN: Will try alternative GLP 1, patient promises to implemented diabetic diet. [facility] Medical History Vitamin D deficiency Left rotator cuff tear Metatarsal fracture Hyperlipidemia LDL goal <100 Pilonidal cyst Type 2 diabetes mellitus with diabetic neuropathy, unspecified Obesity due to excess calories Type 2 diabetes mellitus with hyperglycemia, with long-term current use of insulin Type 2 diabetes mellitus with diabetic polyneuropathy Surgical History History of drainage of abscess Family History Father No problems noted. Mother No problems noted. Paternal Grandfather Colon cancer Social History Household Members: Spouse and Children Housing: House Alcohol intake: never Patient Tobacco Use Status: Never used Tobacco e-Cigarette/Vaping Use: Never Used Second Hand Smoke Exposure: No Current occupational status: employed Cognitive needs: No Hearing needs: No Vision needs: No Questionnaire PHQ-9 Over the last 2 weeks, how often have you been bothered by any of the following problems? 1. Little interest or pleasure in doing things: not at all 2. Feeling down, depressed, or hopeless: not at all 3. Trouble falling or staying asleep, or sleeping too much: not at all 4. Feeling tired or having little energy: not at all 5. Poor appetite or overeating: not at all 6. Feeling bad about yourself - or that you are a failure or have let yourself or your family down: not at all 7. Trouble concentrating on things, such as reading the newspaper or watching television: not at all 8. Moving or speaking so slowly that other people could have noticed. Or the opposite - being so fidgety or restless that you have been moving around a lot more than usual: not at all 9. Thoughts that you would be better off or of hurting yourself in some way: not at all Total score: 0 Depression Screening Interpretation: Negative Depression Screening Done: Yes 69421 - PHQ-9 Billing: Yes Source: Developed by Drs. Bill Shepard, Barry Blackmon and colleagues, with an educational carolina from [employer]. Thrive Questionnaire Date Thrive assessed: 11/18/23 I am a: Patient What is your living situation today?: I have a steady place to live Within the past 12 months, did the food you bought not last and you didn't have the money to get more?: Never true Within the past 12 months, did you worry whether your food would run out before you got money to buy more?: Never true Do you have trouble paying for medicines?: No Do you have trouble getting transportation to medical appointments?: No Do you have trouble paying your heating and electricity bill?: No Do you have trouble taking care of your child, family member or friend?: No Do you have trouble with day-to-day activities such as bathing, preparing meals, shopping, managing finances, etc.?: No Are you currently unemployed and looking for a job?: No Are you interested in more education?: No Please select the resources that you would like help with: None Currently or been in a relationship where the following occur: No concerns reported THRIVE Score: 0 AUDIT C Alcohol Use Questionnaire (AUDIT-C) 1. How often do you have a drink containing alcohol?: Never 3. How often do you have six or more drinks on one occasion?: Never Total Score: 0 JUNI-7 AMB Questionnaire JUNI-7 Date JUNI - 7 assessed: 11/18/23 Feeling nervous, anxious, or on edge: 0 = Not at all Not being able to stop or control worryin = Not at all Worrying too much about different things: 0 = Not at all Trouble relaxin = Not at all Being so restless that it is hard to sit still: 0 = Not at all Becoming easily annoyed or irritable: 0 = Not at all Feeling afraid as if something awful might happen: 0 = Not at all Total JUNI-7 score (0-4 normal; 5-9 mild; 10-14 moderate; 15-21 severe): 0 Source: Developed by Shannan Steve Kurt Kroenke and colleagues, with an educational carolina from [employer]. JUNI-7 Assessment Billing JUNI-7 Assessment Tool: JUNI-7 Assessment 96237 Review of Systems Const Denies headache(s) Eyes Denies loss of vision ENT Denies vertigo, Denies dizziness, Denies headache(s) and Denies sore throat Card Denies chest pain, Denies leg edema and Denies lightheadedness Resp Denies cough, Denies hemoptysis and Denies wheezing GI Denies abdominal pain, Denies melena, Denies constipation, Denies diarrhea and Denies vomiting Denies dysuria, Denies urinary frequency and Denies urinary urgency Musc Denies arthralgias, Denies joint swelling, Denies numbness and Denies tingling Neuro Denies Abnormal speech present, Denies behavioral changes, Denies vertigo, Denies dizziness, Denies headache(s), Denies loss of vision, Denies memory loss, Denies numbness and Denies tingling Psych Denies anxiety, Denies behavioral changes, Denies depression, Denies memory loss and Denies panic attacks Derik/Lymph Denies easy bleeding and Denies easy bruising Aller/Immun Denies wheezing Physical exam (Primary Care) Vital Signs: Last Vital Signs Pulse 86 11/18/23 16:06 BP 134/70 11/18/23 16:06 Pulse Ox 98 11/18/23 16:06 Oxygen Delivery Method Room Air 11/18/23 16:06 BMI result Body Mass Index 32.9 Tobacco/Smoking Status: Tobacco use Status Tobacco use date assessed 11/18/23 11/18/23 16:08 Patient Tobacco Use Status Never used Tobacco 11/18/23 16:02 e-Cigarette/Vaping Use Never Used 11/18/23 16:02 PHQ-9: PHQ-9 Score PHQ-9: Total score 0 11/18/23 16:06 Depression Screening Interpretation: Negative Thrive Assessment: Date of Thrive Assessment Date Thrive assessed 11/18/23 11/18/23 16:02 Currently or been in a relationship where the following occur: No concerns reported Const General: healthy appearing, no acute distress, alert and awake Nutritional Appearance: well nourished Orientation/consciousness: oriented to person, oriented to place and oriented to time HENMT Ears: TM's normal bilaterally General nose exam: Normal nasal mucous membranes and turbinates present Eyes Conjunctivae: conjunctivae normal Sclerae: sclerae normal Pupils: Equal, round and reactive pupils present Neck Neck: Yes no lymphadenopathy and Yes no JVD Thyroid: Thyroid normal Carotids: no bruits Resp Effort & Inspection: normal respiratory effort and not tachypneic Auscultation: no crackles, no rales, no rhonchi and no wheezes Cardio Rate: regular rate Rhythm: regular rhythm Heart sounds: no murmurs and normal S1 and S2 GI Palpation (GI): Soft to palpation, nontender, no hepatomegaly and no splenomegaly Auscultation: normal bowel sounds Skin General skin exam: no rashes or lesions noted and dry skin Neuro General: oriented to person, oriented to place and oriented to time Cranial nerves: Yes Equal, round and reactive pupils present Speech: No Abnormal speech present Gait exam (Neuro): Normal gait present Motor exam (neuro): no tremor noted Extrem Other: Right upper extremity: full ROM Left upper extremity: full ROM Right lower extremity: full ROM; no edema Left lower extremity: full ROM; no edema Psych Mental Status: mental status grossly normal Speech and movement: Normal speech and movement present Affect: normal affect Attitude: cooperative Thought process: Normal thought process present Assessment and Plan Assessment & Plan (1) Diabetic ulcer of right foot: Code(s): E11.621 - Type 2 diabetes mellitus with foot ulcer; L97.519 - Non-pressure chronic ulcer of other part of right foot with unspecified severity Qualifiers: Diabetes mellitus type: type 2 Diabetic foot ulcer location: midfoot Non-pressure ulcer stage: with fat layer exposed Qualified Code(s): E11.621 - Type 2 diabetes mellitus with foot ulcer; L97.412 - Non-pressure chronic ulcer of right heel and midfoot with fat layer exposed Plan: PLEASE REFER TO PICTURE FOOT in physical exam section. Patient's has developed a right midfoot ulcer likely due to pressure. 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 Will try to set him up with wound management and Podiatry. Gave note for work to give his foot rest and to be able offload. Give him crutches today in office. 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 Magnesium Today M62.81 - Muscle weakness (generalized) Prostate Specific Antigen Scr Today E78.5 - Hyperlipidemia, unspecified, Z12.5 - Encounter for screening for malignant neoplasm of prostate Referrals Wound Care Referral E11.621 - Type 2 diabetes mellitus with foot ulcer, L97.412 - Non-pressure chronic ulcer of right heel and midfoot with fat layer exposed Podiatry Referral E11.621 - Type 2 diabetes mellitus with foot ulcer, L97.412 - Non-pressure chronic ulcer of right heel and midfoot with fat layer exposed Medications: New tirzepatide (Mounjaro) 5 mg (0.5 mL) subcut QWEEK 4 weeks 2 mL 1RF E11.65 - Type 2 diabetes mellitus with hyperglycemia, Z79.4 - 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4 - penitentiary (current) use of insulin To insulin glargine (Lantus Solostar U-100 Insulin) 30 units (0.3 mL) subcut BID 30 days 18 mL 3RF E11.65 - Type 2 diabetes mellitus with hyperglycemia, Z79.4 - penitentiary (current) use of insulin Discontinued doxycycline hyclate Discontinued Reason: Doctor's Order 100 mg PO BID 7 days 14 caps 0RF Coding Level of Care Code Est Pt Level 4 (05729) Diagnoses Diabetic ulcer of right midfoot associated with type 2 diabetes mellitus, with fat layer exposed E11.621; L97.412 Diabetes mellitus type: type 2 Diabetic foot ulcer location: midfoot Non-pressure ulcer stage: with fat layer exposed Type 2 diabetes mellitus with diabetic polyneuropathy, with long-term current use of insulin E11.42; Z79.4 Diabetes 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
[2023-11-18 16:06] VITALS: BP 134/70; PULSE 86; O2SAT 98; BMI 32.9
== END 2023-11-18 16:55 | disposition home or self-care (01) ==
PROVIDERS: PCP Physician Assistant; Visit Provider Physician Assistant
DX: E11.621 Type 2 diabetes mellitus with foot ulcer (principal); L97.412 Non-pressure chronic ulcer of right heel and midfoot with fat layer exposed; E11.42 Type 2 diabetes mellitus with diabetic polyneuropathy; Z79.4 Long term (current) use of insulin; M62.81 Muscle weakness (generalized)
CPT/HCPCS: 99214

== ENCOUNTER 2023-11-21 08:17 | Outpatient (REF) | payer OTHER, SELFPAY ==
[2023-11-21 09:05] LABS: Estimated Average Glucose 352 mg/dL; Hemoglobin A1c % 13.9 % (<6.0)
[2023-11-21 09:34] LABS: Alanine Aminotransferase 22 U/L (0-40); Alkaline Phosphatase 72 U/L (39-117); Anion Gap 13 (12-20); Aspartate Amino Transferase 16 U/L (5-37); Bilirubin Total 0.3 mg/dL (0.0-1.0); Blood Urea Nitrogen 16 mg/dL (9-16); Calcium 9.7 mg/dL (8.4-10.2); Carbon Dioxide 27 mmol/L (22-29); Chloride 109 mmol/L (96-108); Cholesterol 216 mg/dL (<200); Estimated Glomerular Filt Rate > 60; Glucose Fasting 113 mg/dL (60-99); HDL Cholesterol 57 mg/dL (>40); LDL Cholesterol Calculated 139 mg/dL (<100); Magnesium 1.9 mg/dL (1.6-2.6); Sodium 145 mmol/L (135-145); Triglycerides 102 mg/dL (<150)
[2023-11-21 09:52] LABS: Vitamin D 25-OH Total 30.7 ng/mL (>30)
[2023-11-21 11:18] LABS: Prostate Specific Antigen Scr 0.11 ng/mL (<0.05-4.0)
== END 2023-11-21 08:18 | disposition home or self-care (01) ==
LOC: HO.LAB 08:17
PROVIDERS: PCP Physician Assistant; Visit Provider Physician Assistant
DX: E55.9 Vitamin D deficiency, unspecified (principal); Z79.4 Long term (current) use of insulin; E78.5 Hyperlipidemia, unspecified; Z12.5 Encounter for screening for malignant neoplasm of prostate; M62.81 Muscle weakness (generalized)
CPT/HCPCS: 36415; 80053; 80061; 82306; 83036; 83735; 84153

== ENCOUNTER 2024-01-27 13:59 | Outpatient (AMB) | payer OTHER, SELFPAY ==
--- NOTE | 2024-01-27 14:01 | MHC.OFFVIS ---
Vital Signs 01/27/24 14:04 Height 6 ft 1 in Weight 249 lb BMI 32.8 BP 138/88 Blood Pressure Location Rt brachial Position Sitting Pulse 91 Pulse Source Pulse Oximeter Intake Visit Reasons: T2DM/CONFIRMED Intake Note: New patient presents today for D2MT office visit. Last Diabetic Eye exam: 09/2023 Last Podiatry Visit: 01/27/24 Random Glucose: 85 mg/dl HgA1c: 13.9% [employer] Chemist Required: No Accompanied by: Self / Same As Patient Allergies empagliflozin [From Jardiance] Adverse Reaction (Intermediate, Verified 01/27/24 14:06) GI upset Medication List - Last Reconciled 01/27/24 by Sharifa Barney PA-C albuterol sulfate 90 mcg/actuation (Ventolin HFA) 2 puffs inhalation Q6H PRN atorvastatin 20 mg PO BEDTIME blood pressure test kit-medium As directed blood sugar diagnostic (FreeStyle Lite Strips) Test once DAILY blood-glucose meter (FreeStyle Lite Meter kit) As directed blood-glucose meter,continuous (FreeStyle Clovis 3 [place]) As directed blood-glucose sensor (FreeStyle Clovis 3 Sensor device) As directed cholecalciferol (vitamin D3) 25 mcg PO DAILY flash glucose sensor (FreeStyle Clovis 14 Day Sensor kit) 1 ea topical Q2W ibuprofen 800 mg PO TID 15 days insulin detemir U-100 (Levemir FlexPen) 20 units subcut BEDTIME lancets (FreeStyle Lancets) As directed pen needle, diabetic (BD Ultra-Fine Edna Pen Needle) As directed HPI HPI T2DM/CONFIRMED: Details: Patient is a 48-year-old male with a significant past medical history of hyperlipidemia, poorly-controlled type 2 diabetes, obesity and diabetic foot ulcer presenting today for a diabetic consultation. He was last seen here a couple years ago. Endo: Dm-his last A1c was 13.5. He was dx about 20 years ago . Fam hx none. He is currently on levimir 20 units daily or bid depending on numbers. Trulicity was back ordered but tolerated. He did develop retinopathy at the time of taking trulicity. No worsening retinopathy after his last eye exam last month. He has an appointment in 6 months. Never picked up momargarethro When first dx tried metformin caused GI upset. He did not tolerate actos (swelling), glipizide made him sick. He did not bring reader today. He does report some hypogylecmic events. He states he lowest recently was 56 at 3 AM. He states that he does sometimes get lows especially if he is taking the insulin twice a day. He just came from wound care this afternoon. He states that they just wrapped his right foot wound after debriding it. It reopened last week. CV: Blood pressure today in the office is 138/88. He is not on any antihypertensive regimen. His cholesterol is controlled with atorvastatin 20 mg. [facility] Medical History Vitamin D deficiency Left rotator cuff tear Metatarsal fracture Hyperlipidemia LDL goal <100 Pilonidal cyst Type 2 diabetes mellitus with diabetic neuropathy, unspecified Obesity due to excess calories Type 2 diabetes mellitus with hyperglycemia, with long-term current use of insulin Type 2 diabetes mellitus with diabetic polyneuropathy Surgical History History of drainage of abscess Family History Father No problems noted. Mother No problems noted. Paternal Grandfather Colon cancer Social History Household Members: Spouse and Children Housing: House Alcohol intake: never Patient Tobacco Use Status: Never used Tobacco e-Cigarette/Vaping Use: Never Used Second Hand Smoke Exposure: No Current occupational status: employed Cognitive needs: No Hearing needs: No Vision needs: No Physical Exam Vital Signs: Last Vital Signs Pulse 91 01/27/24 14:04 BP 138/88 01/27/24 14:04 BMI result Body Mass Index 32.8 Const Orientation/consciousness: patient oriented x3 Neck Neck: Yes no lymphadenopathy Thyroid: Thyroid normal Carotids: no bruits Resp Auscultation: clear to auscultation bilaterally Cardio Rate: regular rate Rhythm: regular rhythm Heart sounds: S1 normal heart sound present and S2 normal heart sound present Neuro General: patient oriented x3, gait normal and no focal motor deficits Results Reviewed Results Reviewed: Laboratory Last Values Glucose (Clinic) 85 mg/dL (60-115) 01/27/24 14:10 Laboratory Tests 01/18/23 07/18/24 09/23/24 06:45 08:23 14:10 Sodium 145 Potassium 4.0 Chloride 109 H Carbon Dioxide 27 Anion Gap 13 BUN 16 Creatinine 0.94 Estimated GFR > 60 Glucose (Clinic) 85 Hemoglobin A1c % 13.9 H AST 16 ALT 22 Triglycerides 102 Cholesterol 216 H LDL Cholesterol, Calc 139 H HDL Cholesterol 57 Urine Creatinine 40.59 Urine Microalbumin 19.0 Microalb/Creat Ratio 46.8 Laboratory Tests 12/10/18 07:42 Islet Cell Ab Screen NEGATIVE JUNI Antibody <5 Assessment & Plan Assessment & Plan (1) Type 2 diabetes mellitus with hyperglycemia, with long-term current use of insulin: Code(s): E11.65 - Type 2 diabetes mellitus with hyperglycemia; 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 We discussed risks and benefits and adverse effects of this medication. We did discuss the risk of worsening retinopathy. He will have an upcoming eye appointment and have this rechecked. We also reviewed risks of nausea, vomiting and pancreatitis. Patient we will follow up in 1 month. Labs prior to appointment. Patient understands and agrees with this plan. Orders: Orders Hemoglobin A1c Today Sharifa Barney PA-C E11.65 - Type 2 diabetes mellitus with hyperglycemia, Z79.4 - custodial (current) use of insulin Comprehensive [place]. Panel Fast Today Sharifa Barney PA-C E11.65 - Type 2 diabetes mellitus with hyperglycemia, Z79.4 - custodial (current) use of insulin C Peptide Today Sharifa Barney PA-C E11.65 - Type 2 diabetes mellitus with hyperglycemia, Z79.4 - custodial (current) use of insulin Glutamic acid decarboxylase Ab Today Sharifa Barney PA-C E11.65 - Type 2 diabetes mellitus with hyperglycemia, Z79.4 - custodial (current) use of insulin Islet Cell Antibody Scrn/Titer Today Sharifa Barney PA-C E11.65 - Type 2 diabetes mellitus with hyperglycemia, Z79.4 - bed bug 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 (current) use of insulin Microalbumin, Random (w Creat) Today Sharifa Barney PA-C E11.65 - Type 2 diabetes mellitus with hyperglycemia, Z79.4 - custodial (current) use of insulin Medications: New semaglutide (Ozempic) for 4 weeks 0.25 mg (0.368 mL) subcut QWEEK 3 mL 3RF Sharifa Barney PA-C Changed From insulin detemir U-100 (Levemir FlexPen) 30 units (0.3 mL) subcut BEDTIME 30 days 15 mL 1RF E11.42 - Type 2 diabetes mellitus with diabetic polyneuropathy, Z79.4 - 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 bug 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 (current) use of insulin To insulin detemir U-100 (Levemir FlexPen) 20 units subcut BEDTIME E11.42 - Type 2 diabetes mellitus with diabetic polyneuropathy, Z79.4 - custodial (current) use of insulin Nicho Saravia PA-C Refilled blood-glucose sensor (FreeStyle Clovis 3 Sensor device) As directed 6 ea 3RF Sharifa Barney PA-C E11.42 - Type 2 diabetes mellitus with diabetic polyneuropathy, Z79.4 - custodial (current) use of insulin Coding Level of Care Code Est Pt Level 4 (23437) Complex EM visit Add On G2211 Diagnoses Type 2 diabetes mellitus with hyperglycemia, with long-term current use of insulin E11.65; Z79.4
[2024-01-27 14:04] VITALS: BP 138/88; PULSE 91; BMI 32.8
[2024-01-27 14:15] LABS: Glucose, Whole Blood 85 mg/dL (60-115)
== END 2024-01-27 14:46 | disposition home or self-care (01) ==
PROVIDERS: PCP Physician Assistant; Visit Provider Physician Assistant
DX: E11.65 Type 2 diabetes mellitus with hyperglycemia (principal); Z79.4 Long term (current) use of insulin

== ENCOUNTER → 2024-01-27 13:59 | Outpatient (BNVA) | payer OTHER, SELFPAY | PROVIDERS: PCP Physician Assistant; Visit Provider Physician Assistant | DX: E11.65 Type 2 diabetes mellitus with hyperglycemia (principal); Z79.4 Long term (current) use of insulin | CPT/HCPCS: 82947; 99212 ==

== ENCOUNTER 2024-02-28 12:53 | Outpatient (AMB) | payer OTHER, SELFPAY ==
[2024-02-28 13:02] VITALS: BP 132/82; PULSE 75; BMI 34.0
--- NOTE | 2024-02-28 13:02 | A.OFFVIS_ITS ---
Vital Signs 02/28/24 13:02 Height 6 ft 1 in Weight 257 lb 15.053 oz BMI 34.0 BP 132/82 Blood Pressure Location Rt brachial Position Sitting Pulse 75 Pulse Source Pulse Oximeter Intake Visit Reasons: T2DM/confirmed Intake Note: Patient presents today for a follow-up on DMT2: Last Diabetic Eye exam: 09/2023 Last Podiatry Visit: 01/27/24 Most recent HgA1c: 8.3%, 02/28/2024 Random Glucose: 119 mg/dL, Today Sausage Maker Required: No Accompanied by: Self / Same As Patient Allergies empagliflozin [From Jardiance] Adverse Reaction (Intermediate, Verified 01/27/24 14:06) GI upset Medication List - Last Reconciled 02/28/24 by ROSALIND Edmonds albuterol sulfate 90 mcg/actuation (Ventolin HFA) 2 puffs inhalation Q6H PRN atorvastatin 20 mg PO BEDTIME blood pressure test kit-medium As directed blood sugar diagnostic (FreeStyle Lite Strips) Test once DAILY blood-glucose meter (FreeStyle Lite Meter kit) As directed blood-glucose meter,continuous (FreeStyle Clovis 3 [place]) As directed blood-glucose sensor (FreeStyle Clovis 3 Sensor device) Apply new sensor every 14 days cholecalciferol (vitamin D3) 25 mcg PO DAILY flash glucose sensor (FreeStyle Clovis 14 Day Sensor kit) 1 ea topical Q2W glucose (Dex4 Glucose) 16 grams (4 x 4 gram) PO Q15M PRN ibuprofen 800 mg PO TID 15 days insulin detemir U-100 (Levemir FlexPen) 30 units subcut BID lancets (FreeStyle Lancets) As directed pen needle, diabetic (BD Ultra-Fine Edna Pen Needle) As directed semaglutide (Ozempic) 0.25 mg (0.368 mL) subcut QWEEK HPI Comments Details: Patient is a 48-year-old male with a past medical history of hyperlipidemia, type 2 diabetes, obesity and diabetic foot ulcer presenting today for continued diabetic management. He was last seen in the endocrinology department by Sharifa Barney PA-C. He was contacted to fiber picker [employer] system, but he has not picked it up yet. He never heard about Ozempic from the pharmacy. He is currently taking Levemir 30 mg BID. Patient says he frequently changes dosing of Levemir between 20-30 mg once or twice a day based on his blood sugars. His hemoglobin A1c is 8.3% today down from 13.9% 10/24/2023. Sharifa's note indicated he tolerated Trulicity and that he did develop retinopathy at the time he took it and had no worsening retinopathy after his last eye exam 2 months ago. Metformin was discontinued in the past due to GI distress. Actos was discontinued due to swelling. Glipizide also made him sick. Jardiance caused GI upset. Reviewed glucose summary dated February 13 to February 27. Average glucose 251. In range 6% of the time. 1.3 readings per day. Highest sugar 358, lowest sugar 137. He is followed closely by [facility] for an ulcer on his right foot. He was seen there yesterday, and it was redressed. He showed me pictures of progress they are making. Patient is working on his diet. He stopped drinking soda and decrease sugary foods. ROS: Constitutional: No unexplained weight loss, fever, chills, fatigue or night sweats. Eyes: No vision changes, blurry vision, double vision Respiratory: No shortness of breath Cardiovascular: No chest pain Neurologic: No headache, dizziness, syncope Endocrine: No cold or heat intolerance. No polyuria or polydipsia. Physical exam: Constitutional: Alert, in no distress. Head: Normocephalic. Eyes: Pupils are equal, round and reactive to light. Extraocular muscles intact. Neck: Supple, Full range of motion. No lymphadenopathy. No palpable thyroid masses. Respiratory: Clear to auscultation. Cardiovascular: S1 S2 regular. No murmurs [facility] Medical History Vitamin D deficiency Left rotator cuff tear Metatarsal fracture Hyperlipidemia LDL goal <100 Pilonidal cyst Type 2 diabetes mellitus with diabetic neuropathy, unspecified Obesity due to excess calories Type 2 diabetes mellitus with hyperglycemia, with long-term current use of insulin Type 2 diabetes mellitus with diabetic polyneuropathy Surgical History History of drainage of abscess Family History Father No problems noted. Mother No problems noted. Paternal Grandfather Colon cancer Social History Household Members: Spouse and Children Housing: House Alcohol intake: never Patient Tobacco Use Status: Never used Tobacco e-Cigarette/Vaping Use: Never Used Second Hand Smoke Exposure: No Current occupational status: employed Cognitive needs: No Hearing needs: No Vision needs: No Physical Exam Vital Signs: Last Vital Signs Pulse 75 02/28/24 13:02 BP 132/82 02/28/24 13:02 BMI result Body Mass Index 34.0 Results AMB Hemoglobin A1c AMB Hemoglobin A1c 8.3 % Last Edit by DEBBY Juarez on 02/28/24 13:18 Results Reviewed Results Reviewed: Laboratory Last Values Glucose (Clinic) 119 mg/dL (60-115) H 02/28/24 13:07 Hgb A1c (Clinic) 8.3 % (4.0-6.0) H 02/28/24 13:11 Assessment & Plan Assessment & Plan (1) Type 2 diabetes mellitus with hyperglycemia, with long-term current use of insulin: Code(s): E11.65 - Type 2 diabetes mellitus with hyperglycemia; Z79.4 - nursing home (current) use of insulin Category: Medical Plan In summary this is a 48-year-old male with uncontrolled type 2 diabetes with diabetic retinopathy and ulcer of the right foot with suboptimal but improved glycemic control. We discussed Levemir. Advised patient that he should not be changing doses this frequently. He reports no hypoglycemia on 30 mg twice daily. We discussed changing to Tresiba once daily. He is not ready to make this change. Continue Levemir 30 units twice daily. Resubmitted Ozempic 0.25 mg weekly. He was instructed to call if he is not able to pick it up from the pharmacy. Side effects and administration reviewed. Patient will fiber picker his Clovis 3 sensor and reader from the pharmacy and call if he is not able to pick it up for any reason. He will have blood work done today that was ordered by Sharifa. Follow up in 4 weeks for type 2 diabetes and CGM review. Reviewed treatment of hypo and hyperglycemia. Glucose tablets sent to pharmacy. 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 To blood-glucose sensor (FreeStyle Clovis 3 Sensor device) Apply new sensor every 14 days 6 ea 3RF E11.42 - Type 2 diabetes mellitus with diabetic polyneuropathy, 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
[2024-02-28 13:14] LABS: Glucose, Whole Blood 119 mg/dL (60-115)
== END 2024-02-28 13:35 | disposition home or self-care (01) ==
PROVIDERS: PCP Physician Assistant; Visit Provider Physician Assistant Medical
DX: E11.65 Type 2 diabetes mellitus with hyperglycemia (principal); Z79.4 Long term (current) use of insulin; E11.3213 Type 2 diabetes mellitus with mild nonproliferative diabetic retinopathy with macular edema, bilateral

== ENCOUNTER → 2024-02-28 12:53 | Outpatient (BNVA) | payer OTHER, SELFPAY | PROVIDERS: PCP Physician Assistant; Visit Provider Physician Assistant Medical | DX: E11.65 Type 2 diabetes mellitus with hyperglycemia (principal); E11.42 Type 2 diabetes mellitus with diabetic polyneuropathy; Z79.4 Long term (current) use of insulin | CPT/HCPCS: 82947; 83036; 99212 ==

== ENCOUNTER 2024-02-29 07:38 | Outpatient (REF) | payer OTHER, SELFPAY ==
[2024-02-29 08:24] LABS: Estimated Average Glucose 180 mg/dL; Hemoglobin A1C 228.6037 umol/L; Hemoglobin A1c % 7.9 % (<6.0); Total Hemoglobin (HGBA1C) 3665.4597 umol/L
[2024-02-29 08:49] LABS: Alanine Aminotransferase 31 U/L (0-40); Alkaline Phosphatase 70 U/L (39-117); Anion Gap 10 (12-20); Aspartate Amino Transferase 21 U/L (5-37); Bilirubin Total 0.3 mg/dL (0.0-1.0); Blood Urea Nitrogen 11 mg/dL (9-16); Calcium 9.7 mg/dL (8.4-10.2); Carbon Dioxide 30 mmol/L (22-29); Chloride 110 mmol/L (96-108); Estimated Glomerular Filt Rate > 60; Glucose Fasting 138 mg/dL (60-99); Potassium 4.7 mmol/L (3.3-5.1); Sodium 145 mmol/L (135-145); Total Protein 7.1 g/dL (6.5-8.0)
[2024-02-29 08:59] LABS: Creatinine Urine 28.32 mg/dL; Microalbumin Urine < 5.0 mg/L
[2024-03-03 07:47] LABS: C Peptide 0.65 ng/mL (0.80-3.85)
[2024-03-04 18:24] LABS: Glutamic acid decarboxylase Ab <5 IU/mL (<5)
[2024-03-09 23:38] LABS: Islet Cell Antibody Screen NEGATIVE (NEGATIVE)
== END 2024-02-29 07:39 | disposition home or self-care (01) ==
LOC: HO.LAB 07:38
PROVIDERS: PCP Physician Assistant; Visit Provider Physician Assistant
DX: E11.65 Type 2 diabetes mellitus with hyperglycemia (principal); Z79.4 Long term (current) use of insulin
CPT/HCPCS: 36415; 80053; 82570; 83036; 84681; 86341

== ENCOUNTER 2024-03-18 10:04 | Outpatient (AMB) | payer OTHER, SELFPAY ==
[2024-03-18 10:29] VITALS: BP 146/70; PULSE 82; O2SAT 95; BMI 33.7
--- NOTE | 2024-03-18 10:29 | A.OFFPC_ITS ---
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: No Accompanied by: Self / Same As Patient Allergies empagliflozin [From Jardiance] Adverse Reaction (Intermediate, Verified 03/18/24 10:37) GI upset Medication List - Last Reconciled 03/18/24 by Nicho Saravia PA-C albuterol sulfate 90 mcg/actuation (Ventolin HFA) 2 puffs inhalation Q6H PRN atorvastatin 20 mg PO BEDTIME blood pressure test kit-medium As directed blood sugar diagnostic (FreeStyle Lite Strips) Test once DAILY blood-glucose meter (FreeStyle Lite Meter kit) As directed blood-glucose meter,continuous (FreeStyle Clovis 3 [place]) As directed blood-glucose sensor (FreeStyle Clovis 3 Sensor device) Apply new sensor every 14 days cholecalciferol (vitamin D3) 25 mcg PO DAILY flash glucose sensor (FreeStyle Clovis 14 Day Sensor kit) 1 ea topical Q2W glucose (Dex4 Glucose) 16 grams (4 x 4 gram) PO Q15M PRN ibuprofen 800 mg PO TID 15 days insulin detemir U-100 (Levemir FlexPen) 30 units subcut BID lancets (FreeStyle Lancets) As directed pen needle, diabetic (BD Ultra-Fine Edna Pen Needle) As directed semaglutide (Ozempic) 0.25 mg (0.368 mL) subcut QWEEK Tobacco use date assessed: 11/18/23 Dental Screening Dental Screen Date: 11/18/23 HPI Type 2 DM/F/U/A1C due 2 HPI0 Details Patient is a 48-year-old male here today for follow-up visit. Patient has a past medical history significant for uncontrolled type 2 diabetes, hyperlipidemia, asthma. .. Type 2 diabetes: Patient has establish care with [facility]. He reports his insulin has been changed to Levemir 30 units b.i.d.. His sugars have been a bit better. He has now using a continues glucose monitor A1c much improved to 7.8. He does have a right foot diabetic ulcer he is seeing Podiatry for are considering a local surgery to shave bone. He has difficulty with walking long distances--> He is asking for handicap placard . [facility] Medical History Vitamin D deficiency Left rotator cuff tear Metatarsal fracture Hyperlipidemia LDL goal <100 Pilonidal cyst Type 2 diabetes mellitus with diabetic neuropathy, unspecified Obesity due to excess calories Type 2 diabetes mellitus with hyperglycemia, with long-term current use of insulin Type 2 diabetes mellitus with diabetic polyneuropathy Surgical History History of drainage of abscess Family History Father No problems noted. Mother No problems noted. Paternal Grandfather Colon cancer Social History Household Members: Spouse and Children Housing: House Alcohol intake: never Patient Tobacco Use Status: Never used Tobacco e-Cigarette/Vaping Use: Never Used Second Hand Smoke Exposure: No service: No Current occupational status: employed Cognitive needs: No Hearing needs: No Vision needs: No Questionnaire Thrive Questionnaire Date Thrive assessed: 11/18/23 JUNI-7 AMB Questionnaire JUNI-7 Date JUNI - 7 assessed: 11/18/23 Source: Developed by Drs. Bill Shepard, Shannan Hannah, Barry Krishnamurthy and colleagues, with an educational [place] from [employer]. Review of Systems Const Denies headache(s) Eyes Denies loss of vision ENT Denies vertigo, Denies dizziness, Denies headache(s) and Denies sore throat Card Denies chest pain, Denies leg edema and Denies lightheadedness Resp Denies cough, Denies hemoptysis and Denies wheezing GI Denies abdominal pain, Denies melena, Denies constipation, Denies diarrhea and Denies vomiting Denies dysuria, Denies urinary frequency and Denies urinary urgency Musc Denies arthralgias, Denies joint swelling, Denies numbness and Denies tingling Neuro Denies Abnormal speech present, Denies behavioral changes, Denies vertigo, Denies dizziness, Denies headache(s), Denies loss of vision, Denies memory loss, Denies numbness and Denies tingling Psych Denies anxiety, Denies behavioral changes, Denies depression, Denies memory loss and Denies panic attacks Derik/Lymph Denies easy bleeding and Denies easy bruising Aller/Immun Denies wheezing Physical exam (Primary Care) Vital Signs: Last Vital Signs Pulse 82 03/18/24 10:29 BP 146/70 H 03/18/24 10:29 Pulse Ox 95 03/18/24 10:29 Oxygen Delivery Method Room Air 03/18/24 10:29 BMI result Body Mass Index 33.7 Tobacco/Smoking Status: Tobacco use Status Tobacco use date assessed 11/18/23 03/18/24 10:32 Patient Tobacco Use Status Never used Tobacco 03/18/24 10:32 e-Cigarette/Vaping Use Never Used 03/18/24 10:32 Thrive Assessment: Date of Thrive Assessment Date Thrive assessed 11/18/23 03/18/24 10:32 Const General: healthy appearing, no acute distress, alert and awake Nutritional Appearance: well nourished Orientation/consciousness: oriented to person, oriented to place and oriented to time HENMT Ears: TM's normal bilaterally General nose exam: Normal nasal mucous membranes and turbinates present Eyes Conjunctivae: conjunctivae normal Sclerae: sclerae normal Pupils: Equal, round and reactive pupils present Neck Neck: Yes no lymphadenopathy and Yes no JVD Thyroid: Thyroid normal Carotids: no bruits Resp Effort & Inspection: normal respiratory effort and not tachypneic Auscultation: no crackles, no rales, no rhonchi and no wheezes Cardio Rate: regular rate Rhythm: regular rhythm Heart sounds: no murmurs and normal S1 and S2 GI Palpation (GI): Soft to palpation, nontender, no hepatomegaly and no splenomegaly Auscultation: normal bowel sounds Skin General skin exam: no rashes or lesions noted and dry skin Neuro General: oriented to person, oriented to place and oriented to time Cranial nerves: Yes Equal, round and reactive pupils present Speech: No Abnormal speech present Gait exam (Neuro): Normal gait present Motor exam (neuro): no tremor noted Extrem Right upper extremity: full ROM Left upper extremity: full ROM Right lower extremity: full ROM; no edema Left lower extremity: full ROM; no edema Ankle/foot/toe images: 2 1. NOTED IMPROVING ULCER RIGHT LATERAL [place] Psych Mental Status: mental status grossly normal Speech and movement: Normal speech and movement present Affect: normal affect Attitude: cooperative Thought process: Normal thought process present Office Procedures Flu Questionnaire Does the patient have a severe egg allergy?: No Immunizations Fluarix Triv [id number] (PF) 45 mcg (15 mcg x 3)/0.5 mL IM syringe Performing Provider: Nicho Saravia PA-C [facility] Documented (not given) by: GILDA Snell on 03/18/24 10:41 Reason Not Given: Patient Refused Coding Level of Care Code Est Pt Level 4 (02886) Diagnoses Type 2 diabetes mellitus with hyperglycemia, with long-term current use of insulin E11.65; Z79.4 Hyperlipidemia LDL goal <100 E78.5 Diabetic ulcer of right midfoot associated with type 2 diabetes mellitus, with fat layer exposed E11.621; L97.412 Diabetes mellitus type: type 2 Diabetic foot ulcer location: midfoot Non-pressure ulcer stage: with fat layer exposed Primary hypertension I10 Hypertension type: primary hypertension Assessment & Plan Assessment & Plan (1) Type 2 diabetes mellitus with hyperglycemia, with long-term current use of insulin: Code(s): E11.65 - Type 2 diabetes mellitus with hyperglycemia; 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 He will continue working on lifestyle and dietary modifications. He reports the continues glucose monitor has been helpful on making better dietary decisions. Unfortunately GLP 1 genes have not been covered by insurance Goal A1c is to be below 7.0 (2) Hyperlipidemia LDL goal <100: Code(s): E78.5 - Hyperlipidemia, unspecified Category: Medical Plan: Patient's most recent lipid panel showing elevated LDL. We discussed starting statin therapy though he would like to continue working on lifestyle and dietary changes. Goal LDL to be below 100 consider starting statin therapy lipid elevated on next visit (3) Diabetic ulcer of right foot: Code(s): E11.621 - Type 2 diabetes mellitus with foot ulcer; L97.519 - Non-pressure chronic ulcer of other part of right foot with unspecified severity Category: Medical Qualifiers: Diabetes mellitus type: type 2 Diabetic foot ulcer location: midfoot N on-pressure ulcer stage: with fat layer exposed Qualified Code(s): E11.621 - Type 2 diabetes mellitus with foot ulcer; L97.412 - Non-pressure chronic ulcer of right heel and midfoot with fat layer exposed Plan: As per HPI patient followed by Podiatry in [place] and is considering surgical debridement (4) HTN (hypertension): Code(s): I10 - Essential (primary) hypertension Category: Medical Qualifiers: Hypertension type: primary hypertension Qualified Code(s): I10 - Essential (primary) hypertension Plan: Patient's blood pressure slightly elevated today in office. Will start lisinopril 5 mg for both blood pressure control and renal protection. Goal blood pressures to remain below 140/90 Orders: Orders 2 Influenza [id number] Immunization 03/18/24 Z23 - Encounter for immunization Comprehensive [place]. 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
== END 2024-03-18 10:57 | disposition home or self-care (01) ==
PROVIDERS: PCP Physician Assistant; Visit Provider Physician Assistant
DX: E11.65 Type 2 diabetes mellitus with hyperglycemia (principal); Z79.4 Long term (current) use of insulin; E11.621 Type 2 diabetes mellitus with foot ulcer; L97.412 Non-pressure chronic ulcer of right heel and midfoot with fat layer exposed; E78.5 Hyperlipidemia, unspecified; I10 Essential (primary) hypertension

== ENCOUNTER → 2024-03-18 10:04 | Outpatient (BNVA) | payer OTHER, SELFPAY | PROVIDERS: PCP Physician Assistant; Visit Provider Physician Assistant | DX: E11.65 Type 2 diabetes mellitus with hyperglycemia (principal); E78.5 Hyperlipidemia, unspecified; E11.621 Type 2 diabetes mellitus with foot ulcer; L97.412 Non-pressure chronic ulcer of right heel and midfoot with fat layer exposed; I10 Essential (primary) hypertension; Z79.4 Long term (current) use of insulin | CPT/HCPCS: 90471; 99212 ==

== ENCOUNTER 2024-04-15 17:11 | Inpatient (IN) | payer OTHER, SELFPAY ==
--- NOTE | ~2024-04-15 | MR_ITS ---
EXAMINATION: MR FOOT WITHOUT AND WITH CONTRAST, RIGHT CLINICAL INFORMATION: Right 5th metatarsal osteomyelitis. Abscess. COMPARISON: Right foot radiographs dated 04/15/2024. TECHNIQUE: MRI of the right foot was performed before and after the intravenous administration of 10 mL Gadavist on a high-field scanner. FINDINGS: Soft tissue defect along the lateral aspect of the midfoot, at the level of the 5th tarsometatarsal joint. This measures approximately 1.1 cm in craniocaudal dimension. There is adjacent skin thickening and subcutaneous edema, consistent with acute cellulitis. Within the underlying subcutaneous tissues there is a complex, peripherally-enhancing fluid collection measuring approximately 7.2 x 1.5 x 4.6 cm in greatest dimension, consistent with abscess formation. This extends along the dorsal aspect of the 5th tarsometatarsal joint. There is prominently increased T2 and decreased T1 signal within the adjacent 5th metatarsal base, extending into the mid diaphysis with postcontrast marrow enhancement and cortical irregularity/erosion. Findings are consistent with acute osteomyelitis. More minimal findings within the lateral/plantar aspect of the cuboid, which could be reactive or represent very early osteomyelitis. Articular cartilage loss with areas of subchondral cystic change at the cuneonavicular joints, as well as at the 2nd through 5th tarsometatarsal joints. No acute fracture or dislocation. No talar osteochondral lesion. Diffuse edema and enhancement throughout the intrinsic musculature of the foot, which can be seen in diabetic patients. No transverse tendon tear or tendon retraction. Intact Lisfranc ligament. Prominent circumferential subcutaneous edema without additional abscess formation. MR/MR foot RT wo/w con IMPRESSION: 1. Soft tissue defect along the lateral aspect of the midfoot, at the level of the 5th tarsometatarsal joint, with adjacent cellulitis. Complex, peripherally-enhancing fluid collection measuring up to 7.2 cm in greatest dimension, consistent with abscess formation. This extends along the dorsal aspect of the 5th tarsometatarsal joint. 2. Acute osteomyelitis within the adjacent 5th metatarsal base extending into the mid diaphysis. More minimal findings within the lateral/plantar aspect of the cuboid, which could be reactive or represent very early osteomyelitis. 3. Prominent circumferential subcutaneous edema without additional abscess formation. 4. Mild degenerative arthritis at the cuneonavicular joints as well as at the 2nd through 5th tarsometatarsal joints. 5. Diffuse edema and enhancement throughout the intrinsic muscles of the foot, which can be seen in diabetic patients. Electronically signed by: Kurtis Liu MD 04/16/2024 08:43 PM [facility]
--- NOTE | ~2024-04-15 | XR_ITS ---
EXAMINATION: XR CHEST CLINICAL INFORMATION: fever, cough COMPARISON: None available. TECHNIQUE: Frontal view of the chest was obtained. FINDINGS: Low lung lines are present with the fifth anterior rib segments remain projection with the lung bases. Normal appearance of the cardiomediastinal structures. No effusions or pneumothoraces. Making allowances for low lung volumes, a normal pattern of pulmonary vasculature is present. No focal pulmonary consolidation identified. No gross peribronchial wall thickening noted. XR/XR chest 1V IMPRESSION: Low lung volumes; otherwise, no acute cardiopulmonary abnormalities. Electronically signed by: Aydin Daniel MD 04/16/2024 02:43 AM [facility] [place]
--- NOTE | ~2024-04-15 | XR_ITS ---
EXAMINATION: XR CHEST CLINICAL INFORMATION: sob COMPARISON: 04/15/2024. TECHNIQUE: AP portable view of the chest was obtained. FINDINGS: Cardiac, hilar, and mediastinal contours are normal. The lung volumes again noted. Patchy parenchymal opacities in the bilateral bases most prominent right base. Cannot exclude pneumonia. Lungs otherwise clear. No definite effusions or pneumothorax. Bony and soft tissue structures appear normal. XR/XR chest 1V IMPRESSION: 1. Low lung volumes again noted with patchy right greater than left basilar parenchymal opacities. Pneumonia cannot be excluded. Electronically signed by: Jaden Parker MD 04/16/2024 03:08 PM [facility] [place]
--- NOTE | ~2024-04-15 | XR_ITS ---
EXAMINATION: XR FOOT, RIGHT CLINICAL INFORMATION: wound COMPARISON: Right foot 11/06/2023 TECHNIQUE: AP, lateral, and oblique views of the right foot. FINDINGS: There is marked soft tissue swelling in the region of a previous wound, significantly increased from prior. There is loss of cortex of a portion of the proximal fifth metatarsal suggesting destructive changes of osteomyelitis. There is also a question of some air in the subcutaneous tissues. No acute fractures are seen. No ankle joint effusion is present. Calcaneal spurring is seen. Degenerative changes are present in the midfoot with a navicular cyst along with osteophytes. No acute fractures or dislocations are seen. XR/XR foot RT min 3V IMPRESSION: Marked soft tissue swelling with loss of cortex of the proximal fifth metatarsal suggesting osteomyelitis. Electronically signed by: Jaspal Avendano MD 04/15/2024 07:37 PM EST
[2024-04-15 17:32] VITALS: BP 126/72; PULSE 111; RESP 18; TEMP 37.7; O2SAT 97; BMI 32.5
--- NOTE | 2024-04-15 17:32 | ED.GENADULT ---
HPI - General Adult General Chief complaint: General Medical Stated complaint: HBS/High blood pressure/Wound on R foot Time Seen by Provider: 04/15/24 19:24 Source: patient Mode of arrival: ambulatory Limitations: no limitations History of Present Illness ED Provider: Franco Peter PA-C HPI narrative: 48-year-old male with history of diabetes presents to ED for elevated glucose and right foot wound. Patient states having fever and chills. Patient also states he ran out of his insulin. Related Data Previous Rx's ?Medication ?Instructions ?Recorded flash glucose sensor (FreeStyle 1 ea topical Q2W #2 ea 07/16/20 Clovis 14 Day Sensor kit) blood pressure test kit-medium #1 ea 05/14/22 pen needle, diabetic 32 gauge x #50 ea 05/14/22 (BD Ultra-Fine Edna Pen Needle) blood-glucose meter (FreeStyle #1 ea 06/27/22 Lite Meter kit) lancets 28 gauge (FreeStyle #100 ea 07/01/22 Lancets) albuterol sulfate 90 mcg/actuation 2 puff inhalation Q6H PRN 07/03/22 aerosol inhaler (Ventolin HFA) shortness of breath or wheezing #8.5 grams cholecalciferol (vitamin D3) 25 25 mcg PO DAILY #30 caps 01/01/23 mcg (1,000 unit) capsule blood sugar diagnostic (FreeStyle #100 ea 12/27/23 Lite Strips) blood-glucose meter,continuous #1 ea 02/28/24 (FreeStyle Clovis 3 R[place]y) blood-glucose sensor (FreeStyle #6 ea 02/28/24 Clovis 3 Sensor device) glucose 4 gram chewable tablet 16 g (4 x 4 gram) PO Q15M PRN 02/28/24 (Dex4 Glucose) hypoglycemia #60 tabs semaglutide 0.25 mg or 0.5 mg (2 0.25 mg (0.368 mL) subcut QWEEK #3 02/28/24 mg/3 mL) subcutaneous pen injector mL (Ozempic) atorvastatin 20 mg tablet 20 mg PO BEDTIME #90 tabs 03/18/24 ibuprofen 800 mg tablet 800 mg PO TID 15 days #45 tabs 03/18/24 lisinopril 5 mg tablet 5 mg PO DAILY 90 days #90 tabs 03/18/24 insulin glargine 100 unit/mL (3 30 unit (0.3 mL) subcut BID 30 04/01/24 mL) subcutaneous pen, sensor days #18 mL Allergies Allergy/AdvReac Type Severity Reaction Status Date / Time empagliflozin AdvReac Intermediate GI upset Verified 04/15/24 17:38 [From Jardiance] Review of Systems Review of Systems: Right foot pain swelling redness infection. Yes all other systems are reviewed and are negative [facility] Past Medical History Medical History Vitamin D deficiency Left rotator cuff tear Metatarsal fracture Hyperlipidemia LDL goal <100 Pilonidal cyst Type 2 diabetes mellitus with diabetic neuropathy, unspecified Obesity due to excess calories Type 2 diabetes mellitus with hyperglycemia, with long-term current use of insulin Type 2 diabetes mellitus with diabetic polyneuropathy Surgical History History of drainage of abscess Family History Family History Father No problems noted. Mother No problems noted. Paternal Grandfather Colon cancer Social History Social History Household Members: Spouse and Children Housing: House Alcohol intake: never Patient Tobacco Use Status: Never used Tobacco Smoked in Last 30 Days: No e-Cigarette/Vaping Use: Never Used Second Hand Smoke Exposure: No Use of substances other than those prescribed or required for medical reasons: No Advance Directives: No Advance Directives Information Provided: Yes Do you have a plan to hurt others: No Plan Nutrition Risks: No Nutritional Risk service: No Current occupational status: employed Cognitive needs: No Hearing needs: No Vision needs: No Physical Exam ED Vital Signs: Vital Signs - 24 hr 04/15/24 17:32 04/15/24 20:36 04/15/24 20:48 Temperature 99.8 F 101.9 F H Pulse Rate 111 H 103 H 106 H Respiratory Rate 18 18 20 Blood Pressure 126/72 84/21 L 123/58 L Pulse Oximetry 97 91 L 91 L Oxygen Delivery Method Room Air Room Air Room Air 04/15/24 21:21 04/15/24 22:04 04/15/24 22:23 Temperature 100.2 F 100.2 F Pulse Rate 103 H 104 H 109 H Respiratory Rate 18 20 18 Blood Pressure 112/44 L 95/56 L 101/49 L Pulse Oximetry 92 93 92 Oxygen Delivery Method Room Air Room Air Room Air BMI result Body Mass Index 32.5 Const General: cooperative, healthy appearing, comfortable, no acute distress, well developed, alert, awake and Physically active Orientation/consciousness: patient oriented x3 [facility] Head: Yes normal to inspection, Yes No palpable skull fracture present, Yes normocephalic and Yes atraumatic Eyes General: appearance normal, both eyes and all related structures Neck Neck: Yes normal visual inspection, Yes full ROM, Yes no lymphadenopathy, Yes no meningeal signs, Yes trachea midline, Yes supple, No anterior neck swelling and No tender Chest Chest palpation & inspection: normal inspection of the chest and normal palpation of entire chest wall Resp Effort & Inspection: normal respiratory effort and able to speak in complete sentences Auscultation: clear to auscultation bilaterally Cardio Jugular venous distension: no JVD Heart sounds: S1 normal heart sound present and S2 normal heart sound present GI Inspection: Yes normal to inspection Palpation (GI): Soft to palpation, not firm, nontender, no guarding and not rigid General: Yes no CVA tenderness Back/Spine/Pelvis Back: no CVA tenderness and No back tenderness Skin General skin exam: no rashes or lesions noted, elasticity normal and turgor normal Neuro General: patient oriented x3, gait normal, tone normal, moves all extremities, Normal light touch and pain sensation, no meningeal signs, no focal motor deficits, CN's II-XI intact bilaterally and normal sensation to monofilament Extrem Other: Psych Appearance: grossly normal, well kempt and not disheveled Course Course Course Narrative: This is an RME: Additional HPI, ROS, PE not included below will be deferred to primary provider. RME assessment and note performed by: Ashley Gamboa PA-C This is a 87-[id number]-male, with a hx of HTN, DM, asthma, asthma, who presents to the ER with complaints of hyperglycemic.He has not been taking his insulin for the last 3 days as he ran out of his insulin. He also states that he has a chronic right foot wound followed by Dr. Alcaraz in [place]. States that since 04/06 his foot wound has worsened. Has been taking ampicillin at home that he got in [place]. last dose was last night. Right foot with cellulitis and obvious wound with drainage, foul-smelling. Plan: Labs, POC, xray, further ER eval needed Medications Administered Generic Name Dose Route Start Last Admin Trade Name Girish PRN Reason Stop Dose Admin Lactated Ringer's 1,000 mls @ 125 mls/hr 04/15/24 23:30 04/16/24 00:23 Lr IVCONT 125 mls/hr .Q8H LORI Administration Insulin Glargine 30 unit 04/15/24 23:35 04/16/24 00:23 Insulin Glargine,Hum.Rec.Anlog 100 Unit/Ml 10 Ml Vial SUBCUT 30 unit BEDTIME LORI Administration Insulin Human Lispro 0 unit 04/15/24 23:35 04/16/24 00:31 Insulin Lispro 100 Unit/Ml 3 Ml Vial SUBCUT 10 unit QIDACHS LORI Administration Protocol Sodium Chloride 3 ml 04/16/24 00:00 04/16/24 00:33 0.9 % Sodium Chloride Flush 3 Ml Syringe IVFLUSH 3 ml QSHIFT LORI Administration Discontinued Medications Generic Name Dose Route Start Last Admin Trade Name Freyoselin PRN Reason Stop Dose Admin Sodium Chloride 1,000 mls @ 999 mls/hr 04/15/24 20:13 04/15/24 22:01 Ns IV 04/15/24 21:13 Infused .Q1H1M STA Infusion Sodium Chloride 1,000 mls @ 999 mls/hr 04/15/24 20:13 04/15/24 22:01 Ns IV 04/15/24 21:13 Infused .Q1H1M STA Infusion Piperacillin Sod/Tazobactam 50 mls @ 100 mls/hr 04/15/24 20:24 04/15/24 21:22 Sod 3.375 gm/ Sodium Chloride IV 04/15/24 20:53 Infused ONCE ONE Infusion Vancomycin HCl 2,000 mg in 500 mls @ 250 mls/hr 04/15/24 20:24 04/15/24 20:47 Vancomycin/Ns IV 04/15/24 22:23 250 mls/hr ONCE ONE Administration Sodium Chloride 1,000 mls @ 999 mls/hr 04/15/24 20:47 04/15/24 22:01 Ns IV 04/15/24 21:47 Infused .Q1H1M STA Infusion Medical Decision Making Medical Decision Making [facility] Narrative: 8:30pm 48-year-old male presents to ED for fever chills elevated glucose and right foot pain. Foot looks infected. X-ray shows osteomyelitis. Patient now septic hypotensive febrile tachy. IV antibiotics ordered. Fluids ordered. 11:58pm: Case presented and accepted by hospitalist Dr. Hernandez for admission for osteomyelitis. Patient vital signs improved Differential Diagnosis Differential Diagnoses: The differential diagnosis associated with the presentation includes (Diabetic foot, osteomyelitis,) Admission/Observation Consideration of admission/observation: Escalation of care including admission/observation considered Consult Healthcare Provider Management of the patient was discussed with: Hospitalist (Dr. Hernandez) Lab Data [facility] Lab Attestation statement: I reviewed the patient's lab results. 04/15/24 18:05 04/15/24 18:05 Labs: Lab Results 04/15/24 04/15/24 04/15/24 Range/Units 17:51 18:05 18:13 WBC 10.7 (4.8-10.8) X10*3/uL RBC 4.45 L (4.60-5.80) X10*6/uL Hgb 11.8 L (14.0-18.0) g/dl Hct 35.0 L (42.0-52.0) % MCV 78.7 L (80.0-98.0) fL MCH 26.5 L (27.0-33.0) pg MCHC 33.7 (31.0-36.0) g/dl RDW 12.7 (11.0-16.0) % Plt Count 374 D (160-400) X10*3/uL MPV 10.2 (9.4-12.4) fL Immature Gran % (Auto) 0.9 H (0.0-0.4) % Neut % (Auto) 84.2 H (45-73) % Lymph % (Auto) 8.2 L (20-40) % Castro % (Auto) 6.0 (2-11) % Eos % (Auto) 0.4 (0-4) % Baso % (Auto) 0.3 (0-2) % Lymph # (Auto) 0.9 L (1.2-4.9) X10*3/uL Castro # (Auto) 0.6 (0.1-1.2) X10*3/uL Eos # (Auto) 0.0 (0.0-0.4) X10*3/uL Baso # (Auto) 0.0 (0.0-0.2) X10*3/uL Abs Immat Gran (auto) 0.10 H (0.00-0.03) X10*3/uL Absolute Neuts (auto) 9.0 H (2.0-8.3) x10*3/uL Absolute Nucleated RBC 0.000 (0.0-0.012) X10*3/uL Nucleated RBC % (auto) 0.0 (0.0-0.2) /100WBC ESR 77 H (0-15) MM/HR VBG pH 7.33 (7.32-7.43) VBG pCO2 52 mmHg VBG pO2 27 mmHg VBG HCO3 27 H (22-26) mmol/L VBG O2 Saturation 33.0 % VBG Base Excess 1.1 mmol/L Sodium 127 L (135-145) mmol/L Potassium 4.8 (3.3-5.1) mmol/L Chloride 89 L (96-108) mmol/L Carbon Dioxide 26 (22-29) mmol/L Anion Gap 17 (12-20) BUN 17 H (9-16) mg/dL Creatinine 1.08 (0.5-1.4) mg/dL Estim Creat Clear Calc 107.1 Estimated GFR > 60 POC Glucose 374 H* (60-115) mg/dL Random Glucose 364 H* (60-115) mg/dL Lactic Acid 3.4 H* (0.5-2.0) mmol/L Lactic Acid F/U @ 2Hr (0.5-2.0) mmol/L Calcium 9.8 (8.4-10.2) mg/dL Magnesium 2.1 (1.6-2.6) mg/dL Total Bilirubin 0.4 (0.0-1.0) mg/dL Direct Bilirubin 0.2 (0.0-0.5) mg/dL AST 26 (5-37) U/L ALT 56 H (0-40) U/L Alkaline Phosphatase 143 H (39-117) U/L C-Reactive Protein 33.51 H (< or = 0.50) mg/dL Total Protein 7.9 (6.5-8.0) g/dL Albumin 3.4 L (3.5-5.0) g/dL Beta-Hydroxybutyrate 0.59 H (0.02-0.27) mmol/L 04/15/ Range/Units 20:43 WBC (4.8-10.8) X10*3/uL RBC (4.60-5.80) X10*6/uL Hgb (14.0-18.0) g/dl Hct (42.0-52.0) % MCV (80.0-98.0) fL MCH (27.0-33.0) pg MCHC (31.0-36.0) g/dl RDW (11.0-16.0) % Plt Count (160-400) X10*3/uL MPV (9.4-12.4) fL Immature Gran % (Auto) (0.0-0.4) % Neut % (Auto) (45-73) % Lymph % (Auto) (20-40) % Castro % (Auto) (2-11) % Eos % (Auto) (0-4) % Baso % (Auto) (0-2) % Lymph # (Auto) (1.2-4.9) X10*3/uL Castro # (Auto) (0.1-1.2) X10*3/uL Eos # (Auto) (0.0-0.4) X10*3/uL Baso # (Auto) (0.0-0.2) X10*3/uL Abs Immat Gran (auto) (0.00-0.03) X10*3/uL Absolute Neuts (auto) (2.0-8.3) x10*3/uL Absolute Nucleated RBC (0.0-0.012) X10*3/uL Nucleated RBC % (auto) (0.0-0.2) /100WBC ESR (0-15) MM/HR VBG pH (7.32-7.43) VBG pCO2 mmHg VBG pO2 mmHg VBG HCO3 (22-26) mmol/L VBG O2 Saturation % VBG Base Excess mmol/L Sodium (135-145) mmol/L Potassium (3.3-5.1) mmol/L Chloride (96-108) mmol/L Carbon Dioxide (22-29) mmol/L Anion Gap (12-20) BUN (9-16) mg/dL Creatinine (0.5-1.4) mg/dL Estim Creat Clear Calc Estimated GFR POC Glucose (60-115) mg/dL Random Glucose (60-115) mg/dL Lactic Acid (0.5-2.0) mmol/L Lactic Acid F/U @ 2Hr 3.2 H* (0.5-2.0) mmol/L Calcium (8.4-10.2) mg/dL Magnesium (1.6-2.6) mg/dL Total Bilirubin (0.0-1.0) mg/dL Direct Bilirubin (0.0-0.5) mg/dL AST (5-37) U/L ALT (0-40) U/L Alkaline Phosphatase (39-117) U/L C-Reactive Protein (< or = 0.50) mg/dL Total Protein (6.5-8.0) g/dL Albumin (3.5-5.0) g/dL Beta-Hydroxybutyrate (0.02-0.27) mmol/L Independent Interpretation I performed an independent interpretation of an: Plain X-Ray Radiology Impression Discussion of test interpretation with radiology: I have reviewed the radiologist's reading. Independent Historian Clinical information obtained from an independent historian. History obtained from or confirmed by: Other (patient) External Record Review External record reviewed: Other (prior visits) Critical Care Time Critical Care Time Critical Care Time: Yes Total Critical Care Time: 60 Attestation: Patient positive for osteomyelitis. Patient became hypotensive. Fluids ordered. Antibiotics ordered. Discharge Plan Discharge Clinical Impression: Osteomyelitis Patient Disposition: Admitted As Inpatient
[2024-04-15 17:55] LABS: Glucose, Whole Blood 374 mg/dL (60-115)
[2024-04-15 18:15] LABS: MANUAL DIFF FLAG NO
[2024-04-15 18:19] LABS: VBG Base Excess 1.1 mmol/L; VBG HCO3 27 mmol/L (22-26); VBG pCO2 52 mmHg; VBG pH 7.33 (7.32-7.43); VBG pO2 27 mmHg
[2024-04-15 18:20] LABS: Venous Blood Gas Refer to POC result
[2024-04-15 18:25] LABS: Basophils Percent Auto 0.3 % (0-2); Eosinophils Percent Auto 0.4 % (0-4); Hemoglobin 11.8 g/dl (14.0-18.0); Imm Gran Pct Auto 0.9 % (0.0-0.4); Lymphocytes Absolute Auto 0.9 X10*3/uL (1.2-4.9); Lymphocytes Percent Auto 8.2 % (20-40); Mean Corpuscular HGB Conc 33.7 g/dl (31.0-36.0); Mean Corpuscular Hemoglobin 26.5 pg (27.0-33.0); Mean Corpuscular Volume 78.7 fL (80.0-98.0); Mean Platelet Volume 10.2 fL (9.4-12.4); Monocytes Absolute Auto 0.6 X10*3/uL (0.1-1.2); Neutrophils Percent Auto 84.2 % (45-73); Platelet Count 374 X10*3/uL (160-400); Red Blood Count 4.45 X10*6/uL (4.60-5.80); Red Cell Distribution Width 12.7 % (11.0-16.0); White Blood Count 10.7 X10*3/uL (4.8-10.8)
[2024-04-15 18:31] LABS: Beta-Hydroxybutyrate 0.59 mmol/L (0.02-0.27)
[2024-04-15 18:37] LABS: Lactic Acid 3.4 mmol/L (0.5-2.0)
[2024-04-15 18:39] LABS: Alanine Aminotransferase 56 U/L (0-40); Albumin Level 3.4 g/dL (3.5-5.0); Alkaline Phosphatase 143 U/L (39-117); Anion Gap 17 (12-20); Aspartate Amino Transferase 26 U/L (5-37); Bilirubin Direct 0.2 mg/dL (0.0-0.5); Bilirubin Total 0.4 mg/dL (0.0-1.0); Blood Urea Nitrogen 17 mg/dL (9-16); Calcium 9.8 mg/dL (8.4-10.2); Carbon Dioxide 26 mmol/L (22-29); Chloride 89 mmol/L (96-108); Creatinine Clr Calc Pharmacy 107.1; Estimated Glomerular Filt Rate > 60; Glucose Random 364 mg/dL (60-115); Magnesium 2.1 mg/dL (1.6-2.6); Potassium 4.8 mmol/L (3.3-5.1); Sodium 127 mmol/L (135-145); Total Protein 7.9 g/dL (6.5-8.0)
[2024-04-15 20:13] LABS: Reflex Lactate? Lactic Acid Added
[2024-04-15] MEDS: 0.9 % Sodium Chloride 1,000 ML 999 ML IV ×3 (20:32→20:55)
[2024-04-15 20:36] VITALS: BP 84/21; PULSE 103; RESP 18; TEMP 38.8; O2SAT 91
[2024-04-15] MEDS: Piperacillin Sodium/Tazobactam 3.375 GM in 0.9 % Sodium Chloride 50 ML IV (20:36)
[2024-04-15] MEDS: vancomycin/NS 2,000 MG/500 ML PLAST..BAG 250 MG IV (20:47)
[2024-04-15 20:48] VITALS: BP 123/58; PULSE 106; RESP 20; O2SAT 91
[2024-04-15 20:51] LABS: C Reactive Protein 33.51 mg/dL (< or = 0.50)
[2024-04-15 21:18] LABS: ~Lactic Acid-LAB USE ONLY 3.2 mmol/L (0.5-2.0)
[2024-04-15 21:21] VITALS: BP 112/44; PULSE 103; RESP 18; O2SAT 92
[2024-04-15 21:57] LABS: Erythrocyte Sedimentation Rate 77 MM/HR (0-15)
[2024-04-15 22:04] VITALS: BP 95/56; PULSE 104; RESP 20; TEMP 37.9; O2SAT 93
[2024-04-15 22:23] VITALS: BP 101/49; PULSE 109; RESP 18; TEMP 37.9; O2SAT 92
[2024-04-15 22:49] LABS: Reflex Lactate? 2 Y
--- NOTE | 2024-04-15 23:35 | PM.IMHP ---
History of Present Illness Date of Service: 04/15/24 Attending physician on admission: Yoni Valerio Chief Complaint: Right foot swelling Neville Pinedo is a 48 years old man with past medical history significant for type 2 diabetes mellitus on insulin, hypertension and hyperlipidemia presents to the emergency department complaining of right foot swelling redness and spontaneous drainage of purulent discharge from chronic diabetic ulcer. He also reported suggestive fever and generalized malaise. He also reported some shortness on breath and cough. He he has not been using his Lantus because his doctor change to another diabetes medication. He did not report any acute gastrointestinal genitourinary symptoms. He denied tobacco smoking, alcohol abuse or illicit drug use. In the ED, he was found to have fever of 101.9, tachycardia and low blood pressure. There is no leukocytosis. Hemoglobin is 11.8 and platelets 374. Glucose 374 and lactic acid 3.4. CRP is 33.51. Beta hydroxybutyrate is 0.59. Right foot x-ray showed marked soft tissue swelling with loss of cortex of the proximal 5th metatarsal suggesting osteomyelitis. ED tx: Zosyn 3.375 g IV, vancomycin 2 g IV, NS 3 L bolus Review of Systems Review of Systems: All 12 systems were reviewed and normal except as noted in HPI. [facility] Medical History Vitamin D deficiency Left rotator cuff tear Metatarsal fracture Hyperlipidemia LDL goal <100 Pilonidal cyst Type 2 diabetes mellitus with diabetic neuropathy, unspecified Obesity due to excess calories Type 2 diabetes mellitus with hyperglycemia, with long-term current use of insulin Type 2 diabetes mellitus with diabetic polyneuropathy Family History Father No problems noted. Mother No problems noted. Paternal Grandfather Colon cancer Surgical History History of drainage of abscess Social History Household Members: Spouse and Children Housing: House Alcohol intake: never Patient Tobacco Use Status: Never used Tobacco Smoked in Last 30 Days: No e-Cigarette/Vaping Use: Never Used Second Hand Smoke Exposure: No Use of substances other than those prescribed or required for medical reasons: No Advance Directives: No Advance Directives Information Provided: Yes Do you have a plan to hurt others: No Plan service: No Current occupational status: employed Cognitive needs: No Hearing needs: No Vision needs: No Meds Allergies Allergy/AdvReac Type Severity Reaction Status Date / Time empagliflozin AdvReac Intermediate GI upset Verified 04/15/24 17:38 [From Jardiance] Active Medications: Current Medications Acetaminophen (Acetaminophen 325 Mg Tablet) 975 mg PO Q6H PRN PRN Reason: Pain, Mild (Pain Scale 1-3), fever or headache Enoxaparin Sodium (Enoxaparin Sodium 40 Mg/0.4 Ml Syringe) 40 mg SUBCUT Q24H LORI Glucose (Glucose Gel 15 Gm Gel..Gram.) 15 gm PO Q15M PRN; Protocol PRN Reason: per Hypoglycemia Standing Ord. Lactated Ringer's (Lr) 1,000 mls @ 125 mls/hr IVCONT .Q8H LORI Piperacillin Sod/Tazobactam (Sod 3.375 gm/ Sodium Chloride) 50 mls @ 100 mls/hr IV Q6H LORI Dextrose (D10) 250 mls @ 750 mls/hr IV Q15M PRN; Protocol PRN Reason: per Hypoglycemia Standing Ord. Insulin Glargine (Insulin Glargine,Hum.Rec.Anlog 100 Unit/Ml 10 Ml Vial) 30 unit SUBCUT BEDTIME LORI Insulin Human Lispro (Insulin Lispro 100 Unit/Ml 3 Ml Vial) 0 unit SUBCUT QIDACHS LORI; Protocol Pharmacy Consult (Consult Rx Vancomycin Dosing) 1 each MISCELLANE DAILY PRN PRN Reason: Consult order Sodium Chloride (0.9 % Sodium Chloride Flush 3 Ml Syringe) 3 ml IVFLUSH QSHIFT LORI Physical Exam Vital Signs and Narrative: Vital Signs: Last Vital Signs Temp 100.2 F 04/15/24 22:23 Pulse 109 H 04/15/24 22:23 Resp 18 04/15/24 22:23 BP 101/49 L 04/15/24 22:23 Pulse Ox 92 04/15/24 22:23 O2 Del Method Room Air 04/15/24 22:23 BMI result Body Mass Index 32.5 Constitutional - Awake and Alert, No apparent distress. Febrile. Cooperative. Pleasant. HEENT - PER, EOMI Heart- Mildly tachycardic. Lungs - Normal lung expansion, Normal respiratory effort, No respiratory distress, CTA bilaterally Abdomen - NT / ND; +BS; No rebound or guarding Extremities - Right foot: Small ulcer to the lateral aspect (dorsum) associated edema, erythema and spontaneous drainage of purulent discharge. Musculoskeletal - Normal inspection, normal ROM Skin - Warm/Dry Neurological - Alert & oriented x3. No focal weakness grossly noted. Normal speech. Psychological - Appropriate affect Results Labs 04/15/24 18:05 04/15/24 18:05 Labs: Laboratory Results - last 24 hr 04/15/24 04/15/24 04/15/24 17:51 18:05 18:13 MCV 78.7 L MCH 26.5 L MCHC 33.7 RDW 12.7 Plt Count 374 D MPV 10.2 Immature Gran % (Auto) 0.9 H Neut % (Auto) 84.2 H Lymph % (Auto) 8.2 L [place] % (Auto) 6.0 Eos % (Auto) 0.4 Baso % (Auto) 0.3 Lymph # (Auto) 0.9 L [place] # (Auto) 0.6 Eos # (Auto) 0.0 Baso # (Auto) 0.0 Abs Immat Gran (auto) 0.10 H Absolute Neuts (auto) 9.0 H Absolute Nucleated RBC 0.000 Nucleated RBC % (auto) 0.0 ESR 77 H VBG pH 7.33 VBG pCO2 52 VBG pO2 27 VBG HCO3 27 H VBG O2 Saturation 33.0 VBG Base Excess 1.1 Anion Gap 17 Estim Creat Clear Calc 107.1 Estimated GFR > 60 POC Glucose 374 H* Random Glucose 364 H* Lactic Acid 3.4 H* Lactic Acid F/U @ 2Hr Calcium 9.8 Magnesium 2.1 Total Bilirubin 0.4 Direct Bilirubin 0.2 AST 26 ALT 56 H Alkaline Phosphatase 143 H C-Reactive Protein 33.51 H Total Protein 7.9 Albumin 3.4 L Beta-Hydroxybutyrate 0.59 H 04/15/24 20:43 MCV MCH MCHC RDW Plt Count MPV Immature Gran % (Auto) Neut % (Auto) Lymph % (Auto) [place] % (Auto) Eos % (Auto) Baso % (Auto) Lymph # (Auto) [place] # (Auto) Eos # (Auto) Baso # (Auto) Abs Immat Gran (auto) Absolute Neuts (auto) Absolute Nucleated RBC Nucleated RBC % (auto) ESR VBG pH VBG pCO2 VBG pO2 VBG HCO3 VBG O2 Saturation VBG Base Excess Anion Gap Estim Creat Clear Calc Estimated GFR POC Glucose Random Glucose Lactic Acid Lactic Acid F/U @ 2Hr 3.2 H* Calcium Magnesium Total Bilirubin Direct Bilirubin AST ALT Alkaline Phosphatase C-Reactive Protein Total Protein Albumin Beta-Hydroxybutyrate Imaging Radiologist's Impressions: Impressions Foot X-Ray 04/15/24 17:39 IMPRESSION: Marked soft tissue swelling with loss of cortex of the proximal fifth metatarsal suggesting osteomyelitis. Electronically signed by: Jaspal Avendano MD 04/15/2024 07:37 PM [facility] Assessment and Plan (1) Sepsis: Qualifiers: Sepsis type: sepsis due to unspecified organism Sepsis acute organ dysfunction status: without acute organ dysfunction Qualified Code(s): A41.9 - Sepsis, unspecified organism Status: Acute (2) Foot osteomyelitis, right: Qualifiers: Osteomyelitis type: unspecified type Qualified Code(s): M86.9 - Osteomyelitis, unspecified Status: Acute (3) Uncontrolled diabetes mellitus with hyperglycemia: Qualifiers: Diabetes mellitus type: type 2 Qualified Code(s): E11.65 - Type 2 diabetes mellitus with hyperglycemia Status: Acute Plan Neville Pinedo is a 48 years old man with past medical history significant for type 2 diabetes mellitus on insulin, hypertension and hyperlipidemia p Sepsis secondary to right foot cellulitis associated 5th metatarsal osteomyelitis. Admit to hospitalist service. Continue empiric IV antibiotic therapy with Zosyn and vancomycin. Continue IV fluids. Blood culture obtained -will follow results. Continue to monitor lactic acid. Check right foot MRI. Surgery consult. Uncontrolled type 2 diabetes mellitus. BG checks before meals at bedtime. Continue Lantus and insulin sliding scale. Check hemoglobin A1c. Diabetic diet. Hyperlipidemia. Continue statin. Essential hypertension. Lisinopril on hold due to soft blood pressure. DVT prophylaxis: Lovenox Code status: Full Patient will need hospitalization for at least 2 midnights for sepsis secondary to right foot cellulitis/osteomyelitis treatment with IV fluids and IV antibiotics. Patient also will need diet-controlled of blood glucose with insulin. Quality Stroke Does the patient have a stroke diagnosis?: No VTE Prior VTE?: No VTE Risk Level:: Medical - moderate - high VTE Device Contraindication: Treatment Not Indicated VTE Drug Contraindication: N/A - Med Ordered
[2024-04-16] VITALS (10 sets, daily range): BP systolic 101–156; BP diastolic 47–82; PULSE 78–103; RESP 14–24; TEMP 36.8–38.4; O2SAT 80–98
--- NOTE | 2024-04-16 | ECG_ITS ---
Test Reason : CHEST PAIN Blood Pressure : / mmHG Vent. Rate : 091 BPM Atrial Rate : 091 BPM P-R Int : 142 ms QRS Dur : 086 ms QT Int : 344 ms P-R-T Axes : 076 057 037 degrees QTc Int : 423 ms Normal sinus rhythm Normal ECG No previous ECGs available Referred By: Yohana Guzman Electronically Signed By:SYED MCARTHUR MD
[2024-04-16 00:13] LABS: ~Lactic Acid-LAB USE ONLY 1.5 mmol/L (0.5-2.0)
[2024-04-16 00:23] LABS: Glucose, Whole Blood 330 mg/dL (60-115)
[2024-04-16] MEDS: Insulin Glargine,Hum.rec.anlog 100 UNIT/ML 10 ML VIAL 30 UNIT SUBCUT ×2 (00:23→20:22)
[2024-04-16] MEDS: Lactated Ringers 1,000 ML 125 ML IVCONT ×2 (00:23→08:13)
[2024-04-16] MEDS: Insulin Lispro 100 UNIT/ML 3 ML VIAL SUBCUT ×5 (00:31→20:23)
[2024-04-16] MEDS: 0.9 % Sodium Chloride Flush 3 ML SYRINGE IVFLUSH (00:33)
[2024-04-16] MEDS: Acetaminophen 325 MG TABLET 975 MG PO ×3 (02:52→20:22)
[2024-04-16] MEDS: Piperacillin Sodium/Tazobactam 3.375 GM in 0.9 % Sodium Chloride 50 ML IV ×4 (03:09→20:23)
--- NOTE | 2024-04-16 03:31 | PC.NURSE ---
at approximately 0015 the pt was placed on 2lpm via NC as he was noted to desat to the high 80s while awake and endorsed some mild shortness of breath with positive effect s/p application
[2024-04-16 05:43] LABS: MANUAL DIFF FLAG NO
[2024-04-16 05:44] LABS: Basophils Percent Auto 0.1 % (0-2); Eosinophils Absolute Auto 0.1 X10*3/uL (0.0-0.4); Eosinophils Percent Auto 0.6 % (0-4); Hematocrit 26.3 % (42.0-52.0); Hemoglobin 9.2 g/dl (14.0-18.0); Imm Gran Pct Auto 1.2 % (0.0-0.4); Lymphocytes Absolute Auto 1.3 X10*3/uL (1.2-4.9); Mean Corpuscular Hemoglobin 26.7 pg (27.0-33.0); Mean Corpuscular Volume 76.2 fL (80.0-98.0); Mean Platelet Volume 10.1 fL (9.4-12.4); Monocytes Absolute Auto 0.9 X10*3/uL (0.1-1.2); Monocytes Percent Auto 11.4 % (2-11); Neutrophils Absolute Auto 5.8 x10*3/uL (2.0-8.3); Neutrophils Percent Auto 70.7 % (45-73); Platelet Count 305 X10*3/uL (160-400); Red Blood Count 3.45 X10*6/uL (4.60-5.80); Red Cell Distribution Width 12.9 % (11.0-16.0); White Blood Count 8.3 X10*3/uL (4.8-10.8)
[2024-04-16 06:30] LABS: Anion Gap 13 (12-20); Blood Urea Nitrogen 14 mg/dL (9-16); Calcium 8.1 mg/dL (8.4-10.2); Carbon Dioxide 21 mmol/L (22-29); Chloride 101 mmol/L (96-108); Creatinine Clr Calc Pharmacy 131.4; Estimated Glomerular Filt Rate > 60; Glucose Random 240 mg/dL (60-115); Potassium 3.8 mmol/L (3.3-5.1); Sodium 131 mmol/L (135-145)
[2024-04-16 07:11] LABS: Estimated Average Glucose 223 mg/dL; Hemoglobin A1C 203.8657 umol/L; Hemoglobin A1c % 9.4 % (<6.0)
--- NOTE | 2024-04-16 07:26 | PHA.PROG ---
Admission Date/Time: April 15, 2024 23:26 Indication: BONE AND JOINT Weight in k.584 kg Adjusted body weight in Kg: Ashby body weight in Kg: Obesity Dosing Indication % IBW: Serum Creatinine - Last 168 Hours 04/15/24 04/16/24 18:05 04:59 Creatinine 1.08 0.88 Estimated CrCl and GFR - Last 168 Hours 04/15/24 04/16/24 18:05 04:59 Estim Creat Clear Calc 107.1 131.4 Estimated GFR > 60 > 60 Vancomycin Loading Dose: 2000 MG Current Vancomycin Dosing Regimen: 1500 MG Q12H Vancomycin Monitoring using AUC goal of 400 - 600 range with trough as surrogate marker: QYR=252 TROUGH=17.3 Date and Time for next Vancomycin Level to be drawn: 04/17/24 @0700 Pharmacist Comments on Vancomycin Plan: Vancomycin dosing will take advantage of [employer] as a clinical decision support tool that uses Bayesian modeling to calculate individual patient's pharmacokinetic parameters and forecast the patient's drug concentration time course with the target goal AUC 24 range of 400 - 600 mg/L/hr.
[2024-04-16 08:01] LABS: Glucose, Whole Blood 231 mg/dL (60-115)
[2024-04-16] MEDS: Enoxaparin Sodium 40 MG/0.4 ML SYRINGE SUBCUT (08:14)
[2024-04-16] MEDS: vancomycin HCL 1,500 MG in 0.9 % Sodium Chloride 500 ML 333.33 MG IV (08:39)
--- NOTE | 2024-04-16 08:40 | PC.NURSE ---
pt noted to desat to 83% on RA while asleep. pt arousable to verbal stimuli. a&ox4 when awake. pt placed on 2L via NC for supplemental O2. pt seems to be in no respiratory distress. no sob/wob noted. respirations even/unlabored. otherwise vss and up to date. pt currently speaking w/ general surgery in regards to plan at this time. plan of care ongoing. call hayden placed within reach.
--- NOTE | 2024-04-16 08:46 | PC.NURSE ---
pt noted to have white pus from affected area on right foot. foul smell. pt remains afebrile. pt denies chills. pt denies pain as he has hx of neuropathy and is unable to feel anything on feet bilaterally. affected area wrapped w/ abd non stick, 6x6 and gauze. pt aware of plan of care moving forwards in regards to surgery. plan of care ongoing.
--- NOTE | 2024-04-16 08:51 | PC.NURSE ---
critical lab value - pt tested positive for 1 out of 2 blood cultures for gram negative rods. ROSALIND Guzman notified/aware.
--- NOTE | 2024-04-16 08:58 | PHA.MEDREC ---
Addendum entered by Lyla Nieto RPh 04/16/24 09:06: Reviewed by [facility] Original Note: Pharmacy Consult ? Medication Reconciliation Pharmacy has completed the medication reconciliation. Spoke to patient to confirm med list. Patient states he is not taking Atorvastatin 20 mg, Levemir Flexpen 30 units (had a bad reactions! waiting on his Dr to call in Lantus insulin) and Lisopril 5 mg.
--- NOTE | 2024-04-16 10:32 | PC.NURSE ---
critical lab value received at this time - pt now testing positive for 2/2 gram negative santos blood cultures. admitting provider notified/aware.
--- NOTE | 2024-04-16 10:51 | MHC.CM.PN ---
Met with patient in regards to discharge planning. Patient lives with his son, has been ambulating with a cane for the past 4 months, and had no services prior to coming to the hospital. PCP verified. No HCP on file. Information provided on HCP. Patient not interested in completing one at this time. No services anticipated to be needed because patient is not homebound. Patient's son will transport patient home when medically stable. Continue to monitor for d/c needs.
--- NOTE | 2024-04-16 11:19 | P.CONGS_ITS ---
History of Present Illness Consult details Consult date: 04/16/24 Narrative: Patient was a 48-year-old male who apparently is a noncompliant diabetic, who has had a right lateral foot infection for several weeks time. He finally presents here were he underwent workup demonstrating what appears to be significant cellulitis and a right mid lateral foot abscess possible associated osteomyelitis of the 5th metatarsal. Chart was reviewed and patient evaluated; as noted above, several comorbidities PMFSH Past Medical History Medical History Vitamin D deficiency Left rotator cuff tear Metatarsal fracture Hyperlipidemia LDL goal <100 Pilonidal cyst Type 2 diabetes mellitus with diabetic neuropathy, unspecified Obesity due to excess calories Type 2 diabetes mellitus with hyperglycemia, with long-term current use of insulin Type 2 diabetes mellitus with diabetic polyneuropathy Family History Family History Father No problems noted. Mother No problems noted. Paternal Grandfather Colon cancer Surgical History Surgical History History of drainage of abscess Social History Social History Household Members: Spouse and Children Housing: House Alcohol intake: never Patient Tobacco Use Status: Never used Tobacco Smoked in Last 30 Days: No e-Cigarette/Vaping Use: Never Used Second Hand Smoke Exposure: No Use of substances other than those prescribed or required for medical reasons: No Advance Directives: No Advance Directives Information Provided: Yes Do you have a plan to hurt others: No Plan Nutrition Risks: No Nutritional Risk service: No Current occupational status: employed Cognitive needs: No Hearing needs: No Vision needs: No Meds Allergies Allergy/AdvReac Type Severity Reaction Status Date / Time empagliflozin AdvReac Intermediate GI upset Verified 04/15/24 17:38 [From Jardiance] Active Medications: Current Medications Acetaminophen (Acetaminophen 325 Mg Tablet) 975 mg PO Q6H PRN PRN Reason: Pain, Mild (Pain Scale 1-3), fever or headache Last Admin: 04/16/24 02:52 Dose: 975 mg Enoxaparin Sodium (Enoxaparin Sodium 40 Mg/0.4 Ml Syringe) 40 mg SUBCUT Q24H [facility] Last Admin: 04/16/24 08:14 Dose: 40 mg Glucose (Glucose Gel 15 Gm Gel..Gram.) 15 gm PO Q15M PRN; Protocol PRN Reason: per Hypoglycemia Standing Ord. Lactated Ringer's (Lr) 1,000 mls @ 125 mls/hr IVCONT .Q8H [facility] Last Admin: 04/16/24 08:13 Dose: 125 mls/hr Piperacillin Sod/Tazobactam (Sod 3.375 gm/ Sodium Chloride) 50 mls @ 100 mls/hr IV Q6H [facility] Last Infusion: 04/16/24 08:52 Dose: Infused Dextrose (D10) 250 mls @ 750 mls/hr IV Q15M PRN; Protocol PRN Reason: per Hypoglycemia Standing Ord. Vancomycin HCl 1,500 mg/ (Sodium Chloride) 500 mls @ 333.333 mls/hr IV Q12H [facility] Last Infusion: 04/16/24 10:19 Dose: Infused Insulin Glargine (Insulin Glargine,Hum.Rec.Anlog 100 Unit/Ml 10 Ml Vial) 30 unit SUBCUT BEDTIME [facility] Last Admin: 04/16/24 00:23 Dose: 30 unit Insulin Human Lispro (Insulin Lispro 100 Unit/Ml 3 Ml Vial) 0 unit SUBCUT QIDACHS [facility]; Protocol Last Admin: 04/16/24 08:14 Dose: 6 unit Pharmacy Consult (Consult Rx Vancomycin Dosing) 1 each MISCELLANE DAILY PRN PRN Reason: Consult order Sodium Chloride (0.9 % Sodium Chloride Flush 3 Ml Syringe) 3 ml IVFLUSH QSHIFT [facility] Last Admin: 04/16/24 08:01 Dose: Not Given Home Medications ?Medication ?Instructions ?Recorded ?Confirmed ?Last Taken ?Type ibuprofen 800 mg tablet 800 mg PO TID PRN Fever Or Pain 04/16/24 04/16/24 Unknown History Physical Exam 2 Vital Signs: Vital Signs: Last Vital Signs Temp 98.6 F 04/16/24 08:18 Pulse 89 04/16/24 08:38 Resp 16 04/16/24 08:38 BP 101/47 L 04/16/24 08:18 Pulse Ox 95 04/16/24 08:38 O2 Del Method Nasal Cannula 04/16/24 08:38 O2 Flow Rate 2 04/16/24 08:38 BMI result Body Mass Index 32.5 Extrem: Other: Right lower extremity demonstrates a very edematous infected right lateral foot. Marked edema making pulse identification difficult. This area measures roughly 8 x 5 cm. On general pressure, purulence was expressed. Results Labs 04/16/24 04:59 04/16/24 04:59 Labs: Abnormal lab results 04/15/24 04/15/24 04/15/24 Range/Units 17:51 18:05 18:13 RBC 4.45 L (4.60-5.80) X10*6/uL Hgb 11.8 L (14.0-18.0) g/dl Hct 35.0 L (42.0-52.0) % MCV 78.7 L (80.0-98.0) fL MCH 26.5 L (27.0-33.0) pg Immature Gran % (Auto) 0.9 H (0.0-0.4) % Neut % (Auto) 84.2 H (45-73) % Lymph % (Auto) 8.2 L (20-40) % Knott % (Auto) (2-11) % Lymph # (Auto) 0.9 L (1.2-4.9) X10*3/uL Abs Immat Gran (auto) 0.10 H (0.00-0.03) X10*3/uL Absolute Neuts (auto) 9.0 H (2.0-8.3) x10*3/uL ESR 77 H (0-15) MM/HR VBG HCO3 27 H (22-26) mmol/L Sodium 127 L (135-145) mmol/L Chloride 89 L (96-108) mmol/L Carbon Dioxide (22-29) mmol/L BUN 17 H (9-16) mg/dL POC Glucose 374 H* (60-115) mg/dL Random Glucose 364 H* (60-115) mg/dL Hemoglobin A1c % (<6.0) % Lactic Acid 3.4 H* (0.5-2.0) mmol/L Lactic Acid F/U @ 2Hr (0.5-2.0) mmol/L Calcium (8.4-10.2) mg/dL ALT 56 H (0-40) U/L Alkaline Phosphatase 143 H (39-117) U/L C-Reactive Protein 33.51 H (< or = 0.50) mg/dL Albumin 3.4 L (3.5-5.0) g/dL Beta-Hydroxybutyrate 0.59 H (0.02-0.27) mmol/L 04/15/24 04/16/24 04/16/24 Range/Units 20:43 00:19 04:59 RBC 3.45 L D (4.60-5.80) X10*6/uL Hgb 9.2 L D (14.0-18.0) g/dl Hct 26.3 L D (42.0-52.0) % MCV 76.2 L (80.0-98.0) fL MCH 26.7 L (27.0-33.0) pg Immature Gran % (Auto) 1.2 H (0.0-0.4) % Neut % (Auto) (45-73) % Lymph % (Auto) 16.0 L (20-40) % Knott % (Auto) 11.4 H (2-11) % Lymph # (Auto) (1.2-4.9) X10*3/uL Abs Immat Gran (auto) 0.10 H (0.00-0.03) X10*3/uL Absolute Neuts (auto) (2.0-8.3) x10*3/uL ESR (0-15) MM/HR VBG HCO3 (22-26) mmol/L Sodium 131 L (135-145) mmol/L Chloride (96-108) mmol/L Carbon Dioxide 21 L (22-29) mmol/L BUN (9-16) mg/dL POC Glucose 330 H (60-115) mg/dL Random Glucose 240 H (60-115) mg/dL Hemoglobin A1c % 9.4 H (<6.0) % Lactic Acid (0.5-2.0) mmol/L Lactic Acid F/U @ 2Hr 3.2 H* (0.5-2.0) mmol/L Calcium 8.1 L D (8.4-10.2) mg/dL ALT (0-40) U/L Alkaline Phosphatase (39-117) U/L C-Reactive Protein (< or = 0.50) mg/dL Albumin (3.5-5.0) g/dL Beta-Hydroxybutyrate (0.02-0.27) mmol/L 04/16/24 Range/Units 07:58 RBC (4.60-5.80) X10*6/uL Hgb (14.0-18.0) g/dl Hct (42.0-52.0) % MCV (80.0-98.0) fL MCH (27.0-33.0) pg Immature Gran % (Auto) (0.0-0.4) % Neut % (Auto) (45-73) % Lymph % (Auto) (20-40) % Knott % (Auto) (2-11) % Lymph # (Auto) (1.2-4.9) X10*3/uL Abs Immat Gran (auto) (0.00-0.03) X10*3/uL Absolute Neuts (auto) (2.0-8.3) x10*3/uL ESR (0-15) MM/HR VBG HCO3 (22-26) mmol/L Sodium (135-145) mmol/L Chloride (96-108) mmol/L Carbon Dioxide (22-29) mmol/L BUN (9-16) mg/dL POC Glucose 231 H (60-115) mg/dL Random Glucose (60-115) mg/dL Hemoglobin A1c % (<6.0) % Lactic Acid (0.5-2.0) mmol/L Lactic Acid F/U @ 2Hr (0.5-2.0) mmol/L Calcium (8.4-10.2) mg/dL ALT (0-40) U/L Alkaline Phosphatase (39-117) U/L C-Reactive Protein (< or = 0.50) mg/dL Albumin (3.5-5.0) g/dL Beta-Hydroxybutyrate (0.02-0.27) mmol/L Short CBC 04/15/24 04/16/24 Range/Units 18:05 04:59 WBC 10.7 8.3 (4.8-10.8) X10*3/uL Hgb 11.8 L 9.2 L D (14.0-18.0) g/dl Hct 35.0 L 26.3 L D (42.0-52.0) % Plt Count 374 D 305 (160-400) X10*3/uL BMP 04/15/24 04/16/24 18:05 04:59 Sodium 127 L 131 L Potassium 4.8 3.8 D Chloride 89 L 101 Carbon Dioxide 26 21 L BUN 17 H 14 Creatinine 1.08 0.88 Calcium 9.8 8.1 L D Liver Function 04/15/24 Range/Units 18:05 Total Bilirubin 0.4 (0.0-1.0) mg/dL Direct Bilirubin 0.2 (0.0-0.5) mg/dL AST 26 (5-37) U/L ALT 56 H (0-40) U/L Alkaline Phosphatase 143 H (39-117) U/L Albumin 3.4 L (3.5-5.0) g/dL All other labs normal. 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 Status: Acute (2) Diabetic ulcer of right foot: Qualifiers: Diabetic foot ulcer location: midfoot Diabetes mellitus type: type 2 N on-pressure ulcer stage: with fat layer exposed Qualified Code(s): E11.621 - Type 2 diabetes mellitus with foot ulcer; L97.412 - Non-pressure chronic ulcer of right heel and midfoot with fat layer exposed Status: Acute (3) Foot osteomyelitis, right: Qualifiers: Osteomyelitis type: unspecified type Qualified Code(s): M86.9 - Osteomyelitis, unspecified Status: Acute (4) Sepsis: Qualifiers: Sepsis type: sepsis due to unspecified organism Sepsis acute organ dysfunction status: without acute organ dysfunction Qualified Code(s): A41.9 - Sepsis, unspecified organism Status: Acute (5) Osteomyelitis: Status: Acute Plan Right foot findings very concerning for a right mid foot abscess and associated x-ray was properly osteomyelitis. This infection is very concerning. Patient just completed breakfast so he will be scheduled tomorrow for complex right foot infection incision and drainage/debridement. A discussed at length with the patient the seriousness of his condition and we will attempt to salvage this foot, which is obviously impaired secondary to his diabetes with both micro and macro angiopathy and immuno compromised state secondary again to his very poorly diabetes.. In the meantime, patient was undergoing general restorative measures including glucose control, and IV antibiotics and local wound care. Procedures Date of Service Date of Service: 04/16/24
[2024-04-16] MEDS: oxyCODONE HCl Immed Release 5 MG TABLET PO (11:54)
--- NOTE | 2024-04-16 11:54 | PC.NURSE ---
pt verbalizes increase in pain in right foot - prn medication utilized. effectiveness pending. pt otherwise waiting for bed assignment at this time. plan of care ongoing. call hayden placed within reach.
--- NOTE | 2024-04-16 13:16 | PC.NURSE ---
pt verbalizing RUSSELL at this time - requesting tylenol. upon assessment - pt noted to be 80% on RA w/ good wave form as he discontinued nasal cannula. pt also verbalizing sudden onset nonradiating sternal chest pain. denies dizziness/lightheadedness/nausea. O2 titrated to 5L via NC - SPO2 @ 98%. sob/wob noted. pt positioned upright to promote patent airway. ekg performed. admitting provider notified/aware of findings as well as ekg results. per provider order, IVF paused at this time. pt waiting to have chest xray at this time. plan of care ongoing.
[2024-04-16 13:19] LABS: Glucose, Whole Blood 238 mg/dL (60-115)
[2024-04-16] MEDS: Furosemide 20 MG/2 ML VIAL IVPUSH (13:34)
--- NOTE | 2024-04-16 13:46 | HO.PM.IMPN ---
Subjective Subjective Date of Service: 04/16/24 Interval History: seen and examined this morning follow up for right foot infection doing well this am, this afternoon reporting sob Review of Systems Review of Systems: Yes all other systems are reviewed and are negative Constitutional Constitutional: Denies chills and Denies fever(s) Cardiovascular Cardiovascular: Denies dyspnea Respiratory Respiratory: Denies dyspnea Physical Exam Vital Signs: Vital Signs: Last Vital Signs Temp 98.2 F 04/16/24 13:11 Pulse 98 04/16/24 13:11 Resp 22 H 04/16/24 13:11 BP 135/52 L 04/16/24 13:34 Pulse Ox 94 04/16/24 13:11 O2 Del Method Nasal Cannula 04/16/24 13:11 O2 Flow Rate 5 04/16/24 13:11 BMI result Body Mass Index 32.5 Const: General: cooperative, comfortable, no acute distress, alert and awake Nutritional Appearance: overweight Orientation/consciousness: patient oriented x3 Resp: Other: fine basilar rales on re-evaluation Effort & Inspection: normal respiratory effort, able to speak in complete sentences, no respiratory distress and no use of accessory muscles Cardio: Rate: regular rate GI: Inspection: No distended Palpation (GI): Soft to palpation and nontender Neuro: General: patient oriented x3, moves all extremities and CN's II-XI intact bilaterally Extrem: Other: RLE with swelling; dressing just rewrapped by surgery, did not unwrap Objective Data Active Medications Acetaminophen (Acetaminophen 325 Mg Tablet) 975 mg PO Q6H PRN PRN Reason: Pain, Mild (Pain Scale 1-3), fever or headache Last Admin: 04/16/24 13:07 Dose: 975 mg Documented By: ROWDY Albuterol Sulfate (Albuterol Sulfate 90 Mcg 8 Gm Inhaler) 2 puff INHALE Q6H PRN PRN Reason: shortness of breath or wheezing Enoxaparin Sodium (Enoxaparin Sodium 40 Mg/0.4 Ml Syringe) 40 mg SUBCUT Q24H [facility] Last Admin: 04/16/24 08:14 Dose: 40 mg Documented By: ROWDY Glucose (Glucose Gel 15 Gm Gel..Gram.) 15 gm PO Q15M PRN; Protocol PRN Reason: per Hypoglycemia Standing Ord. Piperacillin Sod/Tazobactam (Sod 3.375 gm/ Sodium Chloride) 50 mls @ 100 mls/hr IV Q6H [facility] Last Infusion: 04/16/24 08:52 Dose: Infused Documented By: ROWDY Dextrose (D10) 250 mls @ 750 mls/hr IV Q15M PRN; Protocol PRN Reason: per Hypoglycemia Standing Ord. Vancomycin HCl 1,500 mg/ (Sodium Chloride) 500 mls @ 333.333 mls/hr IV Q12H [facility] Last Infusion: 04/16/24 10:19 Dose: Infused Documented By: ROWDY Insulin Glargine (Insulin Glargine,Hum.Rec.Anlog 100 Unit/Ml 10 Ml Vial) 30 unit SUBCUT BEDTIME [facility] Last Admin: 04/16/24 00:23 Dose: 30 unit Documented By: SARAH Insulin Human Lispro (Insulin Lispro 100 Unit/Ml 3 Ml Vial) 0 unit SUBCUT QIDACHS [facility]; Protocol Last Admin: 04/16/24 13:31 Dose: 6 unit Documented By: ROWDY Oxycodone HCl (Oxycodone Hcl Immed Release 5 Mg Tablet) 5 mg PO Q6H PRN PRN Reason: Pain, Moderate(Pain Scale 4-6) Last Admin: 04/16/24 11:54 Dose: 5 mg Documented By: ROWDY Pharmacy Consult (Consult Rx Vancomycin Dosing) 1 each MISCELLANE DAILY PRN PRN Reason: Consult order Sodium Chloride (0.9 % Sodium Chloride Flush 3 Ml Syringe) 3 ml IVFLUSH QSHIFT [facility] Last Admin: 04/16/24 08:01 Dose: Not Given Documented By: ROWDY Non-Admin Reason: IV Running Vitamin D (Cholecalciferol (Vitamin D3) 25 Mcg Tablet) 25 mcg PO DAILY [facility] Labs 04/16/24 13:52 04/16/24 04:59 Labs: Laboratory Results - last 24 hr 04/15/24 04/15/24 04/15/24 17:51 18:05 18:13 MCV 78.7 L MCH 26.5 L MCHC 33.7 RDW 12.7 Plt Count 374 D MPV 10.2 Immature Gran % (Auto) 0.9 H Neut % (Auto) 84.2 H Lymph % (Auto) 8.2 L [place] % (Auto) 6.0 Eos % (Auto) 0.4 Baso % (Auto) 0.3 Lymph # (Auto) 0.9 L [place] # (Auto) 0.6 Eos # (Auto) 0.0 Baso # (Auto) 0.0 Abs Immat Gran (auto) 0.10 H Absolute Neuts (auto) 9.0 H Absolute Nucleated RBC 0.000 Nucleated RBC % (auto) 0.0 ESR 77 H VBG pH 7.33 VBG pCO2 52 VBG pO2 27 VBG HCO3 27 H VBG O2 Saturation 33.0 VBG Base Excess 1.1 Anion Gap 17 Estim Creat Clear Calc 107.1 Estimated GFR > 60 POC Glucose 374 H* Random Glucose 364 H* Estimat Average Glucose Hemoglobin A1c % Lactic Acid 3.4 H* Lactic Acid F/U @ 2Hr Lactic Acid F/U @ 4Hr Calcium 9.8 Magnesium 2.1 Total Bilirubin 0.4 Direct Bilirubin 0.2 AST 26 ALT 56 H Alkaline Phosphatase 143 H C-Reactive Protein 33.51 H Total Protein 7.9 Albumin 3.4 L Beta-Hydroxybutyrate 0.59 H 04/15/24 04/15/24 04/16/24 20:43 23:52 00:19 MCV MCH MCHC RDW Plt Count MPV Immature Gran % (Auto) Neut % (Auto) Lymph % (Auto) [place] % (Auto) Eos % (Auto) Baso % (Auto) Lymph # (Auto) [place] # (Auto) Eos # (Auto) Baso # (Auto) Abs Immat Gran (auto) Absolute Neuts (auto) Absolute Nucleated RBC Nucleated RBC % (auto) ESR VBG pH VBG pCO2 VBG pO2 VBG HCO3 VBG O2 Saturation VBG Base Excess Anion Gap Estim Creat Clear Calc Estimated GFR POC Glucose 330 H Random Glucose Estimat Average Glucose Hemoglobin A1c % Lactic Acid Lactic Acid F/U @ 2Hr 3.2 H* Lactic Acid F/U @ 4Hr 1.5 Calcium Magnesium Total Bilirubin Direct Bilirubin AST ALT Alkaline Phosphatase C-Reactive Protein Total Protein Albumin Beta-Hydroxybutyrate 04/16/24 04/16/24 04/16/24 04:59 07:58 13:15 MCV 76.2 L MCH 26.7 L MCHC 35.0 RDW 12.9 Plt Count 305 MPV 10.1 Immature Gran % (Auto) 1.2 H Neut % (Auto) 70.7 Lymph % (Auto) 16.0 L [place] % (Auto) 11.4 H Eos % (Auto) 0.6 Baso % (Auto) 0.1 Lymph # (Auto) 1.3 [place] # (Auto) 0.9 Eos # (Auto) 0.1 Baso # (Auto) 0.0 Abs Immat Gran (auto) 0.10 H Absolute Neuts (auto) 5.8 Absolute Nucleated RBC 0.000 Nucleated RBC % (auto) 0.0 ESR VBG pH VBG pCO2 VBG pO2 VBG HCO3 VBG O2 Saturation VBG Base Excess Anion Gap 13 Estim Creat Clear Calc 131.4 Estimated GFR > 60 POC Glucose 231 H 238 H Random Glucose 240 H Estimat Average Glucose 223 Hemoglobin A1c % 9.4 H Lactic Acid Lactic Acid F/U @ 2Hr Lactic Acid F/U @ 4Hr Calcium 8.1 L D Magnesium 2.0 Total Bilirubin Direct Bilirubin AST ALT Alkaline Phosphatase C-Reactive Protein Total Protein Albumin Beta-Hydroxybutyrate Microbiology Microbiology Results: Microbiology 04/15/24 18:05 Blood Culture - Preliminary Blood - Venous Prelim: GNR Gram Stain only 04/15/24 18:05 Blood Culture - Preliminary Blood - Venous Prelim: GNR Gram Stain only Assessment and Plan (1) Osteomyelitis: Status: Acute (2) Uncontrolled diabetes mellitus with hyperglycemia: Status: Acute Plan Neville Pinedo is a 48 years old man with past medical history significant for type 2 diabetes mellitus on insulin, hypertension and hyperlipidemia p Sepsis secondary to right foot cellulitis associated 5th metatarsal osteomyelitis and bacteremia Continue IV Zosyn and vancomycin. lactic acid normalized after IVF Blood cultures 2/2 GNR seen by surgery - concern for abscess, plan for drainage/debridement in the OR tomorrow; npo at midnight sob denies history of asthma or copd, but ? uses prn albuterol at baseline ?due to fluid overload from IVF check cxr, trop, bnp lasix x 1 follow clinically course supplemental oxygen as needed Uncontrolled type 2 diabetes mellitus. hba1c - 9.4 Continue Lantus and insulin sliding scale, ADA diet Hyperlipidemia has been not been taking Essential hypertension. Lisinopril on hold due to soft blood pressure but pharmacy reports not taking at baseline normocytic anemia likely due to acute illness and probable component of hemodilution no evidence of acute blood loss mild hyponatremia due to hyperglycemia and fluids when corrected for blood sugar, na is 133 DVT prophylaxis: Lovenox Code status: Full requires ongoing inpatient stay for management of right foot cellulitis/osteomyelitis treatment with IV fluids and IV antibiotics Quality Stroke Does the patient have a stroke diagnosis?: No VTE Prior VTE?: No VTE Risk Level:: Medical - moderate - high VTE Device Contraindication: Treatment Not Indicated VTE Drug Contraindication: N/A - Med Ordered
[2024-04-16 13:58] LABS: Hematocrit 29.5 % (42.0-52.0); Hemoglobin 10.1 g/dl (14.0-18.0)
[2024-04-16 14:17] LABS: B Type Natriuretic Peptide 164 pg/mL (<100)
[2024-04-16 14:18] LABS: Troponin-I High Sensitivity < 2.7 ng/L (<3.5-35.0)
--- NOTE | 2024-04-16 15:00 | CA_ITS ---
Transthoracic Echocardiogram Patient (Last, First, Middle): Neville Parker, Gender: Male Date of : 1975 Age: 48 Procedure Date: 04/16/2024 Procedure Type: Transthoracic Echocardiogram Location: ER Height: 185.42 cm Weight: 111.59 kg BSA: 2.35 m2 Heart Rate: 87 bpm BP: 135 / 52 mmHg Beef Farmer: MALATHI Referring MD: Yohana BOYER Core Blower Operator: Michel Bermudez MD Symptoms: fluid overload, sob Study Quality: Adequate ECG Rhythm: Sinus Conclusions: - Essentially normal study Findings Left Ventricle Normal left ventricular size, thickness, and systolic function. The visually estimated ejection fraction is between 55-60%. Spectral Doppler is indicative of a normal filling pattern. Right Ventricle Normal right ventricular cavity size and systolic function. Atria Both atria are normal in size. There is no evidence of interatrial shunt. Aortic Valve Normal aortic valve structure and function. There is no aortic valve stenosis. There is no aortic valve regurgitation. Mitral Valve Normal mitral valve structure and function. There is trace mitral valve regurgitation. There is no mitral valve stenosis. Pulmonic Valve The pulmonic valve is likely normal. There is trace pulmonic valve regurgitation. Tricuspid Valve Normal tricuspid valve structure. There is mild tricuspid valve regurgitation. The right ventricular systolic pressure is normal. The right ventricular systolic pressure is 34 mmHg. Normal right atrial pressure. There is no evidence of pulmonary hypertension. Great Vessels All visible segments of the aorta are normal in size. Venous The inferior vena cava is normal in size and collapses greater than 50% with inspiration. Pericardium/Pleural There is no evidence of pericardial effusion. Prior Study Comparison No prior study available for comparison. Measurements 2D Linear Measurements IVSd: 0.86 0.6-0.9/0.6-1.0 cm LVIDd: 5.18 3.9-5.3/4.2-5.9 cm LVIDd Index: 2.20 2.4-3.2/2.2-3.1 cm/m2 LVIDs: 3.30 2.0-3.6 cm LVPWd: 0.79 0.7-1.1 cm LA Diam: 3.60 2.7-3.8/3.0-4.0 cm LAIDs Index: 1.53 1.5-2.3 cm/m2 LV Mass: 187.39 67-162/88-224 g LV Mass Index: 79.74 43-95/49-115 g/m2 LVOT Diam: 2.20 3.0+(-)1.3 cm 2D Systolic Function EF 4C: 57.80 >55% EF 2C: 57.40 >55% EF BiP: 59.10 >55% Mitral Valve MV Pk E: 1.27 MV PK A: 0.77 MV Decel Time: 163.00 E/A: 1.70 E'Lateral: 10.40 E'Medial: 8.38 E/E' Med: 15.20 E/E' Lat: 12.20 PHT: 48.00 MVA PHT: 4.58 Decel [place]: 7.82 Aortic Valve AoV Pk Joss: 1.26 AoV Pk Grad: 6.00 SHARI: 4.05 LVOT LVOT Pk Joss: 1.23 LVOT Mn Joss: 0.82 LVOT VTI: 0.25 LVOT Pk Grad: 6.00 LVOT Mn Grad: 3.00 LVOT Diam: 2.20 LVOT Area: 3.80 Diastolic Function MV Pk E: 1.27 MV Pk A: 0.77 E/A: 1.70 E'Medial: 8.38 E/E' Med: 15.20 E' Laterial: 10.40 E/E' Lat: 12.20 Right Ventricle TAPSE (mm): 23.40 TVS' Joss: 16.20 Tricuspid Valve TR Pk Joss: 2.80 TR Pk Grad: 31.00 RA Press: 3.00 RVSP: 34.00 Great Vessels Aorta Sinus of Valsalva: 3.30 2.0-3.5 cm Ao Asc: 2.70 2.1-3.4 cm Ao Arch: 2.90 Pulmonary Veins Pulm Vein S/D 1.40 Pulmonary Valve PV Pk Joss: 0.90 Peak PV Grad: 3.00 Updated in Other Vendor System with Status of Final Michel Bermudez MD electronically signed on 04/16/2024 4:16:42 PM with status of Final
[2024-04-16 17:18] LABS: Glucose, Whole Blood 294 mg/dL (60-115)
--- NOTE | 2024-04-16 17:18 | PC.NURSE ---
pt to MRI at this time.
[2024-04-16] MEDS: gadobutroL 10 ML VIAL IVPUSH (18:26)
[2024-04-16 20:13] LABS: Glucose, Whole Blood 272 mg/dL (60-115)
[2024-04-16] MEDS: vancomycin HCL 1,500 MG in 0.9 % Sodium Chloride 500 ML 250 MG IV (20:31)
[2024-04-17] VITALS (17 sets, daily range): BP systolic 112–145; BP diastolic 47–79; PULSE 80–91; RESP 16–18; TEMP 36.3–37.4; O2SAT 90–99
--- NOTE | 2024-04-17 00:45 | MHC.EDTECH ---
this tech took over care @[phone]
[2024-04-17] MEDS: 0.9 % Sodium Chloride Flush 3 ML SYRINGE IVFLUSH ×4 (01:54→23:14)
[2024-04-17] MEDS: Piperacillin Sodium/Tazobactam 3.375 GM in 0.9 % Sodium Chloride 50 ML IV ×4 (02:00→23:08)
[2024-04-17] MEDS: Acetaminophen 325 MG TABLET 975 MG PO (02:01)
[2024-04-17] MEDS: oxyCODONE HCl Immed Release 5 MG TABLET PO (02:01)
[2024-04-17 06:07] LABS: Creatinine Clr Calc Pharmacy 125.7; Estimated Glomerular Filt Rate > 60
--- NOTE | 2024-04-17 06:21 | MHC.EDTECH ---
at this time the pt has been taken to surgery
--- NOTE | 2024-04-17 06:58 | PC.NURSE ---
22g right hand intact and 20g left forearm intact. no leaking. asymptomatic.
[2024-04-17 07:04] LABS: Glucose, Whole Blood 166 mg/dL (60-115)
--- NOTE | 2024-04-17 07:20 | HO.ANESPROP2 ---
HPI - Anesthesia Eval Consult details Narrative: 48 yo M admitted for right foot abscess PMFSH Active Problems Active Problems: All Active Problems Osteomyelitis (Acute) Uncontrolled diabetes mellitus with hyperglycemia (Acute) Foot osteomyelitis, right (Acute) Sepsis (Acute) HTN (hypertension) (Acute) Low serum C-peptide (Acute) Muscle weakness (Acute) Diabetic ulcer of right foot (Acute) Wound, open, foot (Acute) Tenosynovitis of right wrist (Acute) Diabetic retinopathy associated with type 2 diabetes mellitus (Acute) Left rotator cuff tear arthropathy (Acute) Painful arc syndrome of left shoulder (Acute) Left rotator cuff tear (Acute) Vitamin D deficiency (Acute) Metatarsal fracture (Acute) Left rotator cuff tear (Acute) Asthma (Acute) Type 2 diabetes mellitus with hyperglycemia, with long-term current use of insulin (Acute) Type 2 diabetes mellitus with diabetic polyneuropathy (Acute) Hyperlipidemia LDL goal <100 (Acute) Obesity due to excess calories (Acute) Past Medical History Medical History Vitamin D deficiency Left rotator cuff tear Metatarsal fracture Hyperlipidemia LDL goal <100 Pilonidal cyst Type 2 diabetes mellitus with diabetic neuropathy, unspecified Obesity due to excess calories Type 2 diabetes mellitus with hyperglycemia, with long-term current use of insulin Type 2 diabetes mellitus with diabetic polyneuropathy Family History Family History Father No problems noted. Mother No problems noted. Paternal Grandfather Colon cancer Family history of problems with anesthesia: No Surgical History Surgical History History of drainage of abscess History of Problems with Anesthesia: No Social History Social History Household Members: Spouse and Children Housing: House Alcohol intake: never Patient Tobacco Use Status: Never used Tobacco e-Cigarette/Vaping Use: Never Used Second Hand Smoke Exposure: No service: No Current occupational status: employed Cognitive needs: No Hearing needs: No Vision needs: No Meds Allergies Allergy/AdvReac Type Severity Reaction Status Date / Time empagliflozin AdvReac Intermediate GI upset Verified 04/15/24 17:38 [From Jardiance] Active Medications: Current Medications Acetaminophen (Acetaminophen 325 Mg Tablet) 975 mg PO Q6H PRN PRN Reason: Pain, Mild (Pain Scale 1-3), fever or headache Last Admin: 04/17/24 02:01 Dose: 975 mg Albuterol Sulfate (Albuterol Sulfate 90 Mcg 8 Gm Inhaler) 2 puff INHALE Q6H PRN PRN Reason: shortness of breath or wheezing Albuterol Sulfate (Albuterol Sulfate (0.083%) 2.5 Mg/3 Ml Vial.Neb) 2.5 mg INHALE Q4H PRN PRN Reason: Shortness of Breath/Wheezing Enoxaparin Sodium (Enoxaparin Sodium 40 Mg/0.4 Ml Syringe) 40 mg SUBCUT Q24H [facility] Last Admin: 04/16/24 08:14 Dose: 40 mg Glucose (Glucose Gel 15 Gm Gel..Gram.) 15 gm PO Q15M PRN; Protocol PRN Reason: per Hypoglycemia Standing Ord. Piperacillin Sod/Tazobactam (Sod 3.375 gm/ Sodium Chloride) 50 mls @ 100 mls/hr IV Q6H [facility] Last Infusion: 04/17/24 05:38 Dose: Infused Dextrose (D10) 250 mls @ 750 mls/hr IV Q15M PRN; Protocol PRN Reason: per Hypoglycemia Standing Ord. Vancomycin HCl 1,500 mg/ (Sodium Chloride) 500 mls @ 333.333 mls/hr IV Q12H [facility] Last Infusion: 04/17/24 00:44 Dose: Infused Insulin Glargine (Insulin Glargine,Hum.Rec.Anlog 100 Unit/Ml 10 Ml Vial) 30 unit SUBCUT BEDTIME [facility] Last Admin: 04/16/24 20:22 Dose: 30 unit Insulin Human Lispro (Insulin Lispro 100 Unit/Ml 3 Ml Vial) 0 unit SUBCUT QIDACHS [facility]; Protocol Last Admin: 04/16/24 20:23 Dose: 8 unit Oxycodone HCl (Oxycodone Hcl Immed Release 5 Mg Tablet) 5 mg PO Q6H PRN PRN Reason: Pain, Moderate(Pain Scale 4-6) Last Admin: 04/17/24 02:01 Dose: 5 mg Pharmacy Consult (Consult Rx Vancomycin Dosing) 1 each MISCELLANE DAILY PRN PRN Reason: Consult order Sodium Chloride (0.9 % Sodium Chloride Flush 3 Ml Syringe) 3 ml IVFLUSH QSHIFT [facility] Last Admin: 04/17/24 01:54 Dose: 3 ml Vitamin D (Cholecalciferol (Vitamin D3) 25 Mcg Tablet) 25 mcg PO DAILY [facility] Home Medications ?Medication ?Instructions ?Recorded ?Confirmed ?Last Taken ?Type ibuprofen 800 mg tablet 800 mg PO TID PRN Fever Or Pain 04/16/24 04/16/24 Unknown History Exam Exam Date and Time: 04/17/24 0720 Height,Weight and Vital Signs: Height 6 ft 1 in Weight 111.584 kg Last Vital Signs Temp 99.3 F 04/17/24 06:50 Pulse 91 04/17/24 06:50 Resp 16 04/17/24 06:50 BP 138/70 04/17/24 06:50 Pulse Ox 94 04/17/24 07:18 O2 Del Method Nasal Cannula 04/17/24 07:18 O2 Flow Rate 2 04/17/24 07:18 Pertinent Lab Results Pertinent Lab Results: Laboratory Tests 04/15/24 04/15/24 04/15/24 17:51 18:05 18:13 WBC 10.7 RBC 4.45 L Hgb 11.8 L Hct 35.0 L MCV 78.7 L MCH 26.5 L MCHC 33.7 RDW 12.7 Plt Count 374 D MPV 10.2 Immature Gran % (Auto) 0.9 H Neut % (Auto) 84.2 H Lymph % (Auto) 8.2 L [place] % (Auto) 6.0 Eos % (Auto) 0.4 Baso % (Auto) 0.3 Lymph # (Auto) 0.9 L [place] # (Auto) 0.6 Eos # (Auto) 0.0 Baso # (Auto) 0.0 Abs Immat Gran (auto) 0.10 H Absolute Neuts (auto) 9.0 H Absolute Nucleated RBC 0.000 Nucleated RBC % (auto) 0.0 ESR 77 H VBG pH 7.33 VBG pCO2 52 VBG pO2 27 VBG HCO3 27 H VBG O2 Saturation 33.0 VBG Base Excess 1.1 Sodium 127 L Potassium 4.8 Chloride 89 L Carbon Dioxide 26 Anion Gap 17 BUN 17 H Creatinine 1.08 Estim Creat Clear Calc 107.1 Estimated GFR > 60 POC Glucose 374 H* Random Glucose 364 H* Estimat Average Glucose Hemoglobin A1c % Lactic Acid 3.4 H* Lactic Acid F/U @ 2Hr Lactic Acid F/U @ 4Hr Calcium 9.8 Magnesium 2.1 Total Bilirubin 0.4 Direct Bilirubin 0.2 AST 26 ALT 56 H Alkaline Phosphatase 143 H Troponin I High Sens C-Reactive Protein 33.51 H B-Natriuretic Peptide Total Protein 7.9 Albumin 3.4 L Beta-Hydroxybutyrate 0.59 H 04/15/24 04/15/24 04/16/24 20:43 23:52 00:19 WBC RBC Hgb Hct MCV MCH MCHC RDW Plt Count MPV Immature Gran % (Auto) Neut % (Auto) Lymph % (Auto) [place] % (Auto) Eos % (Auto) Baso % (Auto) Lymph # (Auto) [place] # (Auto) Eos # (Auto) Baso # (Auto) Abs Immat Gran (auto) Absolute Neuts (auto) Absolute Nucleated RBC Nucleated RBC % (auto) ESR VBG pH VBG pCO2 VBG pO2 VBG HCO3 VBG O2 Saturation VBG Base Excess Sodium Potassium Chloride Carbon Dioxide Anion Gap BUN Creatinine Estim Creat Clear Calc Estimated GFR POC Glucose 330 H Random Glucose Estimat Average Glucose Hemoglobin A1c % Lactic Acid Lactic Acid F/U @ 2Hr 3.2 H* Lactic Acid F/U @ 4Hr 1.5 Calcium Magnesium Total Bilirubin Direct Bilirubin AST ALT Alkaline Phosphatase Troponin I High Sens C-Reactive Protein B-Natriuretic Peptide Total Protein Albumin Beta-Hydroxybutyrate 04/16/24 04/16/24 04/16/24 04:59 07:58 13:15 WBC 8.3 RBC 3.45 L D Hgb 9.2 L D Hct 26.3 L D MCV 76.2 L MCH 26.7 L MCHC 35.0 RDW 12.9 Plt Count 305 MPV 10.1 Immature Gran % (Auto) 1.2 H Neut % (Auto) 70.7 Lymph % (Auto) 16.0 L [place] % (Auto) 11.4 H Eos % (Auto) 0.6 Baso % (Auto) 0.1 Lymph # (Auto) 1.3 [place] # (Auto) 0.9 Eos # (Auto) 0.1 Baso # (Auto) 0.0 Abs Immat Gran (auto) 0.10 H Absolute Neuts (auto) 5.8 Absolute Nucleated RBC 0.000 Nucleated RBC % (auto) 0.0 ESR VBG pH VBG pCO2 VBG pO2 VBG HCO3 VBG O2 Saturation VBG Base Excess Sodium 131 L Potassium 3.8 D Chloride 101 Carbon Dioxide 21 L Anion Gap 13 BUN 14 Creatinine 0.88 Estim Creat Clear Calc 131.4 Estimated GFR > 60 POC Glucose 231 H 238 H Random Glucose 240 H Estimat Average Glucose 223 Hemoglobin A1c % 9.4 H Lactic Acid Lactic Acid F/U @ 2Hr Lactic Acid F/U @ 4Hr Calcium 8.1 L D Magnesium 2.0 Total Bilirubin Direct Bilirubin AST ALT Alkaline Phosphatase Troponin I High Sens C-Reactive Protein B-Natriuretic Peptide Total Protein Albumin Beta-Hydroxybutyrate 04/16/24 04/16/24 04/16/24 13:52 17:06 20:07 WBC RBC Hgb 10.1 L Hct 29.5 L MCV MCH MCHC RDW Plt Count MPV Immature Gran % (Auto) Neut % (Auto) Lymph % (Auto) [place] % (Auto) Eos % (Auto) Baso % (Auto) Lymph # (Auto) [place] # (Auto) Eos # (Auto) Baso # (Auto) Abs Immat Gran (auto) Absolute Neuts (auto) Absolute Nucleated RBC Nucleated RBC % (auto) ESR VBG pH VBG pCO2 VBG pO2 VBG HCO3 VBG O2 Saturation VBG Base Excess Sodium Potassium Chloride Carbon Dioxide Anion Gap BUN Creatinine Estim Creat Clear Calc Estimated GFR POC Glucose 294 H 272 H Random Glucose Estimat Average Glucose Hemoglobin A1c % Lactic Acid Lactic Acid F/U @ 2Hr Lactic Acid F/U @ 4Hr Calcium Magnesium Total Bilirubin Direct Bilirubin AST ALT Alkaline Phosphatase Troponin I High Sens < 2.7 C-Reactive Protein B-Natriuretic Peptide 164 H Total Protein Albumin Beta-Hydroxybutyrate 04/17/24 04/17/24 05:17 07:00 WBC RBC Hgb Hct MCV MCH MCHC RDW Plt Count MPV Immature Gran % (Auto) Neut % (Auto) Lymph % (Auto) [place] % (Auto) Eos % (Auto) Baso % (Auto) Lymph # (Auto) [place] # (Auto) Eos # (Auto) Baso # (Auto) Abs Immat Gran (auto) Absolute Neuts (auto) Absolute Nucleated RBC Nucleated RBC % (auto) ESR VBG pH VBG pCO2 VBG pO2 VBG HCO3 VBG O2 Saturation VBG Base Excess Sodium Potassium Chloride Carbon Dioxide Anion Gap BUN Creatinine 0.92 Estim Creat Clear Calc 125.7 Estimated GFR > 60 POC Glucose 166 H Random Glucose Estimat Average Glucose Hemoglobin A1c % Lactic Acid Lactic Acid F/U @ 2Hr Lactic Acid F/U @ 4Hr Calcium Magnesium Total Bilirubin Direct Bilirubin AST ALT Alkaline Phosphatase Troponin I High Sens C-Reactive Protein B-Natriuretic Peptide Total Protein Albumin Beta-Hydroxybutyrate Airway Mallampati Class: I TM Dist: >3cm Neck ROM: Full Loose/Missing/Broken Teeth: No (patient denies any loose or broken teeth) Heart: S1S2 Lungs: CTAB Assessment and Plan Assessment Anesthesia Assessment: Anesthesia Plan Discussed and Chart Reviewed Final Anesthetic Review Family History of Problems with Anesthesia: No History of Problems with Anesthesia: No NPO: Yes ASA Class: III Final Preanesthetic Review: No Changes in Pt Med Stat, Meds/Allgs Chart Reviewed, Consent Obtained/Reviewed and Anes Risks/Benef Reviewed Patient Risk: Intermediate Procedure Risk: Low Anesthetic Plan Anesthetic Plan: GA and Agree w/ Assess. and Plan Disposition: Standard PACU
--- NOTE | 2024-04-17 07:56 | W.PM.OPN ---
Operative Note Operative Note Date of Service: 04/17/24 Narrative: Preoperative diagnosis: [] Complex right mid foot infection/abscess/osteomyelitis Postop diagnosis: [] The same Procedure [] incision and drainage and debridement of complex right mid foot deep abscess Surgeon: [] Blue Clinical Documentation Improvement Specialist: [] Type of Anesthesia: [] LMA Indication for surgery: [] Patient has had a several week history of progressively worsening right foot pain, swelling, purulent discharge. Patient found to have a significantly sized (8 x 5 cm) abscess cavity involving his right lateral midfoot extending down into the metatarsal bones. Necrotic skin and soft tissue were debrided. Cultures were obtained. Findings: [] Patient brought to the operating room, placed on operative table supine position, after an adequate level general anesthesia was induced, the right lower extremity and foot were prepped and draped in usual sterile fashion using a longitudinal incision along the right lateral mid foot over the massive abscess cavity, this carried down through skin, subcutaneous tissue where a large abscess cavity was entered and copious amounts of purulence and pus were retrieved. This extended down into the metatarsal bones. Once all loculations were broken up with clamped and digitally, the wound was irrigated, secured hemostasis, and packed with moist Kerlix followed by 4x4s and Kerlix wrap. Wound was infiltrated with 0.5% Marcaine/1% lidocaine. Of concern is that with all this extensive dissection, there was minimal bleeding encountered. Sponge, needle, and instrument counts were reported correct. Patient tolerated the procedure well and emerged from anesthesia stable condition. EBL minimal
[2024-04-17 08:20] LABS: Anion Gap 11 (12-20)
[2024-04-17 08:22] LABS: Blood Urea Nitrogen 9 mg/dL (9-16); Calcium 8.3 mg/dL (8.4-10.2); Carbon Dioxide 24 mmol/L (22-29); Chloride 103 mmol/L (96-108); Glucose Random 158 mg/dL (60-115); Potassium 4.2 mmol/L (3.3-5.1); Sodium 134 mmol/L (135-145)
[2024-04-17] MEDS: Cholecalciferol (Vitamin D3) 25 MCG TABLET PO (10:58)
[2024-04-17] MEDS: Enoxaparin Sodium 40 MG/0.4 ML SYRINGE SUBCUT (10:58)
[2024-04-17 11:31] LABS: Hematocrit 27.1 % (42.0-52.0); Hemoglobin 9.2 g/dl (14.0-18.0); Mean Corpuscular HGB Conc 33.9 g/dl (31.0-36.0); Mean Corpuscular Hemoglobin 26.6 pg (27.0-33.0); Mean Corpuscular Volume 78.3 fL (80.0-98.0); Mean Platelet Volume 9.7 fL (9.4-12.4); Platelet Count 342 X10*3/uL (160-400); Red Blood Count 3.46 X10*6/uL (4.60-5.80); Red Cell Distribution Width 13.4 % (11.0-16.0); White Blood Count 10.3 X10*3/uL (4.8-10.8)
[2024-04-17 11:35] LABS: Glucose, Whole Blood 228 mg/dL (60-115)
[2024-04-17 11:43] LABS: Vancomycin Random 6.4 mcg/mL (15-20)
[2024-04-17] MEDS: Insulin Lispro 100 UNIT/ML 3 ML VIAL SUBCUT ×3 (11:45→20:49)
--- NOTE | 2024-04-17 11:51 | HE.PHANOTE ---
RE: vanco Level on 04/17 came back at 6.4mg/L. Increased soing to 1500mg Q8H with predicted trough of 16.1mg/L, AUC of 574mg/L. Next level to be drawn 04/18 @1000
[2024-04-17] MEDS: vancomycin HCL 1,500 MG in 0.9 % Sodium Chloride 500 ML 333.33 MG IV ×2 (12:19→19:51)
--- NOTE | 2024-04-17 15:30 | P.PNIM_ITS ---
Subjective Subjective Date of Service: 04/17/24 Interval History: seen and examined this morning follow up for foot infection s/p I&D in OR this am denies sob, no cough; pain controlled Review of Systems Review of Systems: Yes all other systems are reviewed and are negative Constitutional Constitutional: Denies chills and Denies fever(s) Cardiovascular Cardiovascular: Denies chest pain and Denies dyspnea Respiratory Respiratory: Denies cough and Denies dyspnea Gastrointestinal Gastrointestinal: Denies abdominal pain, Denies nausea and Denies vomiting Physical Exam 2 Vital Signs: Vital Signs: Last Vital Signs Temp 97.9 F 04/17/24 15:08 Pulse 86 04/17/24 15:08 Resp 16 04/17/24 15:08 BP 123/66 04/17/24 15:08 Pulse Ox 96 04/17/24 15:08 O2 Del Method Room Air 04/17/24 15:08 O2 Flow Rate 2.0 04/17/24 11:46 BMI result Body Mass Index 32.5 Const: General: cooperative, comfortable, no acute distress, alert and awake Nutritional Appearance: overweight Orientation/consciousness: patient oriented x3 Resp: Effort & Inspection: normal respiratory effort, able to speak in complete sentences, no respiratory distress and no use of accessory muscles Cardio: Rate: regular rate GI: Inspection: No distended Palpation (GI): Soft to palpation and nontender Neuro: General: patient oriented x3, moves all extremities and CN's II-XI intact bilaterally Extrem: Other: RLE with swelling; dressing from surgery clean and dry without staining Objective Data Active Medications Acetaminophen (Acetaminophen 325 Mg Tablet) 975 mg PO Q6H PRN PRN Reason: Pain, Mild (Pain Scale 1-3), fever or headache Last Admin: 04/17/24 02:01 Dose: 975 mg Documented By: GUILLERMINA Albuterol Sulfate (Albuterol Sulfate 90 Mcg 8 Gm Inhaler) 2 puff INHALE Q6H PRN PRN Reason: shortness of breath or wheezing Albuterol Sulfate (Albuterol Sulfate (0.083%) 2.5 Mg/3 Ml Vial.Neb) 2.5 mg INHALE Q4H PRN PRN Reason: Shortness of Breath/Wheezing Enoxaparin Sodium (Enoxaparin Sodium 40 Mg/0.4 Ml Syringe) 40 mg SUBCUT Q24H [facility] Last Admin: 04/17/24 10:58 Dose: 40 mg Documented By: QI Glucose (Glucose Gel 15 Gm Gel..Gram.) 15 gm PO Q15M PRN; Protocol PRN Reason: per Hypoglycemia Standing Ord. Hydromorphone HCl (Hydromorphone Hcl 0.5 Mg/0.5 Ml Syringe) 0.5 mg IVPUSH Q4H PRN; Protocol PRN Reason: Pain, Severe (Pain Scale 7-10) Dextrose (D10) 250 mls @ 750 mls/hr IV Q15M PRN; Protocol PRN Reason: per Hypoglycemia Standing Ord. Piperacillin Sod/Tazobactam (Sod 3.375 gm/ Sodium Chloride) 50 mls @ 100 mls/hr IV Q6H [facility] Last Infusion: 04/17/24 11:44 Dose: Infused Documented By: QI Vancomycin HCl 1,500 mg/ (Sodium Chloride) 500 mls @ 333.333 mls/hr IV Q8H [facility] Last Infusion: 04/17/24 13:55 Dose: Infused Documented By: QI Insulin Glargine (Insulin Glargine,Hum.Rec.Anlog 100 Unit/Ml 10 Ml Vial) 30 unit SUBCUT BEDTIME [facility] Last Admin: 04/16/24 20:22 Dose: 30 unit Documented By: GUILLERMINA Insulin Human Lispro (Insulin Lispro 100 Unit/Ml 3 Ml Vial) 0 unit SUBCUT QIDACHS [facility]; Protocol Last Admin: 04/17/24 11:45 Dose: 6 unit Documented By: QI Oxycodone HCl (Oxycodone Hcl Immed Release 5 Mg Tablet) 5 mg PO Q6H PRN PRN Reason: Pain, Moderate(Pain Scale 4-6) Last Admin: 04/17/24 02:01 Dose: 5 mg Documented By: GUILLERMINA Pharmacy Consult (Consult Rx Vancomycin Dosing) 1 each MISCELLANE DAILY PRN PRN Reason: Consult order Sodium Chloride (0.9 % Sodium Chloride Flush 3 Ml Syringe) 3 ml IVFLUSH QSHIFT [facility] Last Admin: 04/17/24 10:16 Dose: Not Given Documented By: QI Non-Admin Reason: Off Unit: Surgery Vitamin D (Cholecalciferol (Vitamin D3) 25 Mcg Tablet) 25 mcg PO DAILY [facility] Last Admin: 04/17/24 10:58 Dose: 25 mcg Documented By: QI Labs 04/17/24 11:02 04/17/24 05:17 Labs: Laboratory Results - last 24 hr 04/16/24 04/16/24 04/17/24 17:06 20:07 05:17 MCV MCH MCHC RDW Plt Count MPV Absolute Nucleated RBC Nucleated RBC % (auto) Anion Gap 11 L Estim Creat Clear Calc 125.7 Estimated GFR > 60 POC Glucose 294 H 272 H Random Glucose 158 H Calcium 8.3 L Random Vancomycin 04/17/24 04/17/24 04/17/24 07:00 11:02 11:14 MCV 78.3 L MCH 26.6 L MCHC 33.9 RDW 13.4 Plt Count 342 MPV 9.7 Absolute Nucleated RBC 0.000 Nucleated RBC % (auto) 0.0 Anion Gap Estim Creat Clear Calc Estimated GFR POC Glucose 166 H 228 H Random Glucose Calcium Random Vancomycin 6.4 L Microbiology Microbiology Results: Microbiology 04/17/24 08:15 Gram Stain - Final Foot - Abscess 04/15/24 18:05 Blood Culture - Preliminary Blood - Venous Gram negative santos 04/15/24 18:05 Blood Culture - Preliminary Blood - Venous Gram negative santos Assessment and Plan (1) Foot osteomyelitis, right: Status: Acute (2) Sepsis: Status: Acute Plan This is a Neville Pinedo is a 48 years old man with past medical history significant for type 2 diabetes mellitus on insulin, hypertension and hyperlipidemia with worsening foot wound found to have foot abscess and osteomyelitis with sepsis Sepsis secondary to right foot cellulitis/abscess/acute osteomyelitis of the 5th metatarsal and GNR bacteremia related to underlying uncontrolled diabetes sepsis resolved. lactic acid normalized after IVF Continue IV Zosyn and vancomycin Blood cultures 2/2 GNR - final speciation pending wound cultures from surgery - pending seen by surgery - s/p abscess drainage/debridement in OR 04/17 ID consult pending for osteomyelitis/bacteremia, will likely need fdc abx sob - resolved cxr showing ?pneumonia, but no cough and respiratory symptoms resolved. on antibiotics for above trop negative, bnp 164. echo normal weaned off oxygen, high 90s on room air Uncontrolled type 2 diabetes mellitus. hba1c - 9.4 Continue Lantus and insulin sliding scale, ADA diet Hyperlipidemia has been not been taking statin Essential hypertension. Lisinopril on hold due to soft blood pressure but pharmacy reports not taking at baseline BP stable, hold for now normocytic anemia likely due to acute illness and probable component of hemodilution no evidence of acute blood loss H/H stable mild hyponatremia due to hyperglycemia and fluids when corrected for blood sugar, na is 133 DVT prophylaxis: Lovenox Code status: Full requires ongoing inpatient stay for management of right foot cellulitis/osteomyelitis treatment with IV fluids and IV antibiotics Quality Stroke Does the patient have a stroke diagnosis?: No VTE Prior VTE?: No VTE Risk Level:: Medical - moderate - high VTE Device Contraindication: Treatment Not Indicated VTE Drug Contraindication: N/A - Med Ordered
--- NOTE | 2024-04-17 15:46 | P.CDIM_ITS ---
PROVIDER RESPONSE TEXT: To clarify, the appropriate diagnosis supported by the clinical indicators: Acute osteomyelitis 5th metatarsal QUERY TEXT: PHYSICIAN'S DOCUMENTATION REQUEST Date of Query: 04/17/2024 08:09 AM EST Patient Name: Neville Parker Admit Date: 04/16/2024 Dear Yohana BOYER, A review of the medical record indicates additional documentation may be needed. Please review below and update the documentation accordingly. Clinical Indicators: Progress note within the Plan 04/16: Sepsis secondary to right foot cellulitis associated 5th metatar arik osteomyelitis. IV Zosyn and Vancomycin. Based on the above, please clarify in the Progress Notes further specificity regarding the acuity of the noted Osteomyelitis within the body of your written Plan: Acute osteomyelitis 5th metatarsal Subacute osteomyelitis Chronic osteomyelitis Other (explain) Clinically unable to determine (explain) Thank you, Anum Gr, CCS, CDIS Use of terms such as suspected, likely, concern for, or probable (associated with a specific diagnosi s that is being evaluated, monitored, or treated as if it exists) are acceptable and can be coded in the inpatient se tting, when documented at the time of discharge. Please use your independent medical judgment in providing your response. THIS QUERY IS PART OF THE PERMANENT MEDICAL RECORD
[2024-04-17 16:37] LABS: Glucose, Whole Blood 286 mg/dL (60-115)
--- NOTE | 2024-04-17 17:20 | P.CDIM_ITS ---
PROVIDER RESPONSE TEXT: To clarify, the appropriate diagnosis supported by the clinical indicators: Yes the Cellulitis is related to / associated with / due to Diabetes mellitus Type 2 QUERY TEXT: PHYSICIAN'S DOCUMENTATION REQUEST Date of Query: 04/17/2024 09:57 AM EST Patient Name: Neville Parker Admit Date: 04/16/2024 Dear Yohana BOYER, A review of the medical record indicates additional documentation may be needed. Please review below and update the documentation accordingly. Clinical Indicators: Progress notes within the Plan 04/16 - Sepsis secondary to right foot cellulitis associated with 5th metatarsal osteomyelitis. DM Type 2, uncontrolled, hba1c - 9.4 Continue Lantus and insulin sliding scale, ADA diet. Please clarify the relationship between these conditions: Yes the Cellulitis is related to / associated with / due to Diabetes mellitus Type 2 No the Cellulitis is not related to / associated with / due to Diabetes mellitus Type 2 Other (explain) Clinically unable to determine (explain) Thank you, Anum Gr, CCS, CDIS Use of terms such as suspected, likely, concern for, or probable (associated with a specific diagnosi s that is being evaluated, monitored, or treated as if it exists) are acceptable and can be coded in the inpatient se tting, when documented at the time of discharge. Please use your independent medical judgment in providing your response. THIS QUERY IS PART OF THE PERMANENT MEDICAL RECORD
[2024-04-17 19:32] LABS: Glucose, Whole Blood 252 mg/dL (60-115)
[2024-04-17] MEDS: Insulin Glargine,Hum.rec.anlog 100 UNIT/ML 10 ML VIAL 30 UNIT SUBCUT (20:48)
[2024-04-18 03:19] VITALS: BP 131/60; PULSE 75; RESP 18; TEMP 36.6; O2SAT 94
[2024-04-18] MEDS: vancomycin HCL 1,500 MG in 0.9 % Sodium Chloride 500 ML 333.33 MG IV (04:06)
[2024-04-18] MEDS: Piperacillin Sodium/Tazobactam 3.375 GM in 0.9 % Sodium Chloride 50 ML IV ×2 (05:41→10:50)
[2024-04-18 06:58] LABS: Hematocrit 29.6 % (42.0-52.0); Hemoglobin 9.7 g/dl (14.0-18.0); Mean Corpuscular HGB Conc 32.8 g/dl (31.0-36.0); Mean Corpuscular Hemoglobin 26.4 pg (27.0-33.0); Mean Corpuscular Volume 80.7 fL (80.0-98.0); Mean Platelet Volume 10.2 fL (9.4-12.4); Platelet Count 449 X10*3/uL (160-400); Red Blood Count 3.67 X10*6/uL (4.60-5.80); Red Cell Distribution Width 13.5 % (11.0-16.0); White Blood Count 12.1 X10*3/uL (4.8-10.8)
[2024-04-18 07:18] LABS: Creatinine Clr Calc Pharmacy 112.3; Estimated Glomerular Filt Rate > 60
[2024-04-18 07:32] VITALS: BP 129/63; PULSE 72; RESP 16; TEMP 36.1; O2SAT 91
[2024-04-18 07:45] LABS: Glucose, Whole Blood 215 mg/dL (60-115)
[2024-04-18 08:25] LABS: Anion Gap 14 (12-20)
[2024-04-18] MEDS: Insulin Lispro 100 UNIT/ML 3 ML VIAL SUBCUT ×3 (08:25→21:04)
[2024-04-18] MEDS: Enoxaparin Sodium 40 MG/0.4 ML SYRINGE SUBCUT (08:25)
[2024-04-18] MEDS: Cholecalciferol (Vitamin D3) 25 MCG TABLET PO (08:25)
[2024-04-18 08:27] LABS: Blood Urea Nitrogen 15 mg/dL (9-16); Calcium 8.8 mg/dL (8.4-10.2); Carbon Dioxide 25 mmol/L (22-29); Chloride 102 mmol/L (96-108); Glucose Random 232 mg/dL (60-115); Potassium 4.3 mmol/L (3.3-5.1); Sodium 137 mmol/L (135-145)
[2024-04-18 10:39] LABS: Vancomycin Random 18.9 mcg/mL (15-20)
--- NOTE | 2024-04-18 10:49 | PM.PNGS ---
Subjective Subjective Date of Service: 04/18/24 Interval history: Feels well Pain much improved Blood sugars still a little uncontrolled Physical Exam Vital Signs: Vital Signs: Last Vital Signs Temp 97.0 F 04/18/24 07:32 Pulse 72 04/18/24 07:32 Resp 16 04/18/24 07:32 BP 129/63 04/18/24 07:32 Pulse Ox 91 L 04/18/24 07:32 O2 Del Method Room Air 04/18/24 07:32 O2 Flow Rate 2 04/17/24 23:09 BMI result Body Mass Index 32.5 Const: General: comfortable and no acute distress Resp: Effort & Inspection: normal respiratory effort GI: Palpation (GI): Soft to palpation Extrem: Other: I&D site clean, ulcer adjacent to this in the plantar aspect laterally Objective Data Active Medications Acetaminophen (Acetaminophen 325 Mg Tablet) 975 mg PO Q6H PRN PRN Reason: Pain, Mild (Pain Scale 1-3), fever or headache Last Admin: 04/17/24 02:01 Dose: 975 mg Documented By: GUILLERMINA Albuterol Sulfate (Albuterol Sulfate 90 Mcg 8 Gm Inhaler) 2 puff INHALE Q6H PRN PRN Reason: shortness of breath or wheezing Albuterol Sulfate (Albuterol Sulfate (0.083%) 2.5 Mg/3 Ml Vial.Neb) 2.5 mg INHALE Q4H PRN PRN Reason: Shortness of Breath/Wheezing Enoxaparin Sodium (Enoxaparin Sodium 40 Mg/0.4 Ml Syringe) 40 mg SUBCUT Q24H [facility] Last Admin: 04/18/24 08:25 Dose: 40 mg Documented By: ALONDRA Glucose (Glucose Gel 15 Gm Gel..Gram.) 15 gm PO Q15M PRN; Protocol PRN Reason: per Hypoglycemia Standing Ord. Hydromorphone HCl (Hydromorphone Hcl 0.5 Mg/0.5 Ml Syringe) 0.5 mg IVPUSH Q4H PRN; Protocol PRN Reason: Pain, Severe (Pain Scale 7-10) Dextrose (D10) 250 mls @ 750 mls/hr IV Q15M PRN; Protocol PRN Reason: per Hypoglycemia Standing Ord. Piperacillin Sod/Tazobactam (Sod 3.375 gm/ Sodium Chloride) 50 mls @ 100 mls/hr IV Q6H [facility] Last Infusion: 04/18/24 06:11 Dose: Infused Documented By: DELORES Vancomycin HCl 1,500 mg/ (Sodium Chloride) 500 mls @ 333.333 mls/hr IV Q8H [facility] Last Infusion: 04/18/24 05:37 Dose: Infused Documented By: DELORES Insulin Glargine (Insulin Glargine,Hum.Rec.Anlog 100 Unit/Ml 10 Ml Vial) 30 unit SUBCUT BEDTIME [facility] Last Admin: 04/17/24 20:48 Dose: 30 unit Documented By: DELORES Insulin Human Lispro (Insulin Lispro 100 Unit/Ml 3 Ml Vial) 0 unit SUBCUT QIDACHS [facility]; Protocol Last Admin: 04/18/24 08:25 Dose: 6 unit Documented By: ALONDRA Oxycodone HCl (Oxycodone Hcl Immed Release 5 Mg Tablet) 5 mg PO Q6H PRN PRN Reason: Pain, Moderate(Pain Scale 4-6) Last Admin: 04/17/24 02:01 Dose: 5 mg Documented By: GUILLERMINA Pharmacy Consult (Consult Rx Vancomycin Dosing) 1 each MISCELLANE DAILY PRN PRN Reason: Consult order Sodium Chloride (0.9 % Sodium Chloride Flush 3 Ml Syringe) 3 ml IVFLUSH QSHIFT [facility] Last Admin: 04/18/24 07:19 Dose: Not Given Documented By: ALONDRA Non-Admin Reason: Previously Administered Vitamin D (Cholecalciferol (Vitamin D3) 25 Mcg Tablet) 25 mcg PO DAILY [facility] Last Admin: 04/18/24 08:25 Dose: 25 mcg Documented By: ALONDRA Labs 04/18/24 05:57 04/18/24 05:57 Labs: Laboratory Results - last 24 hr 04/17/24 04/17/24 04/17/24 11:02 11:14 16:21 MCV 78.3 L MCH 26.6 L MCHC 33.9 RDW 13.4 Plt Count 342 MPV 9.7 Absolute Nucleated RBC 0.000 Nucleated RBC % (auto) 0.0 Anion Gap Estim Creat Clear Calc Estimated GFR POC Glucose 228 H 286 H Random Glucose Calcium Random Vancomycin 6.4 L 04/17/24 04/18/24 04/18/24 19:17 05:57 07:35 MCV 80.7 MCH 26.4 L MCHC 32.8 RDW 13.5 Plt Count 449 H D MPV 10.2 Absolute Nucleated RBC 0.000 Nucleated RBC % (auto) 0.0 Anion Gap 14 Estim Creat Clear Calc 112.3 Estimated GFR > 60 POC Glucose 252 H 215 H Random Glucose 232 H Calcium 8.8 D Random Vancomycin 04/18/24 10:04 MCV MCH MCHC RDW Plt Count MPV Absolute Nucleated RBC Nucleated RBC % (auto) Anion Gap Estim Creat Clear Calc Estimated GFR POC Glucose Random Glucose Calcium Random Vancomycin 18.9 Microbiology Microbiology Results: Microbiology 04/17/24 08:15 Gram Stain - Final Foot - Abscess Routine Culture - Preliminary Culture in progress. Anaerobic Culture - Preliminary Culture in progress. 04/15/24 18:05 Blood Culture - Final Blood - Venous Citrobacter koseri 04/15/24 18:05 Blood Culture - Final Blood - Venous Citrobacter koseri Procedures Date of Service Date of Service: 04/18/24 Progress Note: A&P Assessment and plan (1) Foot abscess: Status: Acute Assessment and Plan: Status post I&D I have changed his packing and dressings in the right side Wound clean Continue wound care Blood sugar control IV antibiotics Time Spent With Patient Time: Total time managing care of this patient today ____ minutes. Quality Stroke Does the patient have a stroke diagnosis?: No VTE Prior VTE?: No VTE Risk Level:: Medical - moderate - high VTE Device Contraindication: Treatment Not Indicated VTE Drug Contraindication: N/A - Med Ordered
--- NOTE | 2024-04-18 10:57 | HE.PHANOTE ---
Vancomycin Vancomycin trough 18.9, cr slightly increased today. Decreasing dose to 1250 mg q8h and will get another level on 04/19/24 @1000
--- NOTE | 2024-04-18 10:59 | PC.NURSE ---
Right foot drsg changed by Dr. Abarca
[2024-04-18 11:14] VITALS: O2SAT 95
[2024-04-18 11:27] LABS: Glucose, Whole Blood 182 mg/dL (60-115)
[2024-04-18] MEDS: vancomycin HCL 1,250 MG in 0.9 % Sodium Chloride 250 ML 166.67 MG IV (11:34)
[2024-04-18 11:39] VITALS: BP 113/74; PULSE 71; RESP 16; TEMP 36.2; O2SAT 96
--- NOTE | 2024-04-18 14:00 | P.PNIM_ITS ---
Subjective Subjective Date of Service: 04/18/24 Interval History: seen and examined this morning follow up for right foot infection feeling better no sob, able to take deep breath pain well controlled Review of Systems Review of Systems: Yes all other systems are reviewed and are negative Constitutional Constitutional: Denies chills and Denies fever(s) ENT Ears, Nose, Mouth, and Throat: Denies dizziness Cardiovascular Cardiovascular: Denies chest pain, Denies palpitations and Denies dyspnea Respiratory Respiratory: Denies cough and Denies dyspnea Neurologic Neurologic: Denies dizziness Endocrine Endocrine: Denies palpitations Physical Exam 2 Vital Signs: Vital Signs: Last Vital Signs Temp 97.1 F 04/18/24 11:39 Pulse 71 04/18/24 11:39 Resp 16 04/18/24 11:39 BP 113/74 04/18/24 11:39 Pulse Ox 96 04/18/24 11:39 O2 Del Method Room Air 04/18/24 11:39 O2 Flow Rate 2 04/17/24 23:09 BMI result Body Mass Index 32.5 Const: General: cooperative, comfortable, no acute distress, alert and awake Nutritional Appearance: overweight Orientation/consciousness: patient oriented x3 Resp: Effort & Inspection: normal respiratory effort, able to speak in complete sentences, no respiratory distress and no use of accessory muscles A uscultation: clear to auscultation bilaterally Cardio: Rate: regular rate GI: Inspection: No distended Palpation (GI): Soft to palpation and nontender Skin: Other: right foot c/d/i dressing; no staining Neuro: General: patient oriented x3, moves all extremities and CN's II-XI intact bilaterally Objective Data Active Medications Acetaminophen (Acetaminophen 325 Mg Tablet) 975 mg PO Q6H PRN PRN Reason: Pain, Mild (Pain Scale 1-3), fever or headache Last Admin: 04/17/24 02:01 Dose: 975 mg Documented By: GUILLERMINA Albuterol Sulfate (Albuterol Sulfate 90 Mcg 8 Gm Inhaler) 2 puff INHALE Q6H PRN PRN Reason: shortness of breath or wheezing Albuterol Sulfate (Albuterol Sulfate (0.083%) 2.5 Mg/3 Ml Vial.Neb) 2.5 mg INHALE Q4H PRN PRN Reason: Shortness of Breath/Wheezing Enoxaparin Sodium (Enoxaparin Sodium 40 Mg/0.4 Ml Syringe) 40 mg SUBCUT Q24H [facility] Last Admin: 04/18/24 08:25 Dose: 40 mg Documented By: ALONDRA Glucose (Glucose Gel 15 Gm Gel..Gram.) 15 gm PO Q15M PRN; Protocol PRN Reason: per Hypoglycemia Standing Ord. Hydromorphone HCl (Hydromorphone Hcl 0.5 Mg/0.5 Ml Syringe) 0.5 mg IVPUSH Q4H PRN; Protocol PRN Reason: Pain, Severe (Pain Scale 7-10) Dextrose (D10) 250 mls @ 750 mls/hr IV Q15M PRN; Protocol PRN Reason: per Hypoglycemia Standing Ord. Piperacillin Sod/Tazobactam (Sod 3.375 gm/ Sodium Chloride) 50 mls @ 100 mls/hr IV Q6H [facility] Last Infusion: 04/18/24 11:38 Dose: Infused Documented By: JAYCE Vancomycin HCl 1,250 mg/ (Sodium Chloride) 250 mls @ 166.667 mls/hr IV Q8H [facility] Last Infusion: 04/18/24 13:17 Dose: Infused Documented By: JAYCE Insulin Glargine (Insulin Glargine,Hum.Rec.Anlog 100 Unit/Ml 10 Ml Vial) 30 unit SUBCUT BEDTIME [facility] Last Admin: 04/17/24 20:48 Dose: 30 unit Documented By: DELORES Insulin Human Lispro (Insulin Lispro 100 Unit/Ml 3 Ml Vial) 0 unit SUBCUT QIDACHS [facility]; Protocol Last Admin: 04/18/24 11:34 Dose: 4 unit Documented By: JAYCE Oxycodone HCl (Oxycodone Hcl Immed Release 5 Mg Tablet) 5 mg PO Q6H PRN PRN Reason: Pain, Moderate(Pain Scale 4-6) Last Admin: 04/17/24 02:01 Dose: 5 mg Documented By: GUILLERMINA Pharmacy Consult (Consult Rx Vancomycin Dosing) 1 each MISCELLANE DAILY PRN PRN Reason: Consult order Sodium Chloride (0.9 % Sodium Chloride Flush 3 Ml Syringe) 3 ml IVFLUSH QSHIFT [facility] Last Admin: 04/18/24 07:19 Dose: Not Given Documented By: ALONDRA Non-Admin Reason: Previously Administered Vitamin D (Cholecalciferol (Vitamin D3) 25 Mcg Tablet) 25 mcg PO DAILY [facility] Last Admin: 04/18/24 08:25 Dose: 25 mcg Documented By: ALONDRA Labs 04/18/24 05:57 04/18/24 05:57 Labs: Laboratory Results - last 24 hr 04/17/24 04/17/24 04/18/24 16:21 19:17 05:57 MCV 80.7 MCH 26.4 L MCHC 32.8 RDW 13.5 Plt Count 449 H D MPV 10.2 Absolute Nucleated RBC 0.000 Nucleated RBC % (auto) 0.0 Anion Gap 14 Estim Creat Clear Calc 112.3 Estimated GFR > 60 POC Glucose 286 H 252 H Random Glucose 232 H Calcium 8.8 D Random Vancomycin 04/18/24 04/18/24 04/18/24 07:35 10:04 11:09 MCV MCH MCHC RDW Plt Count MPV Absolute Nucleated RBC Nucleated RBC % (auto) Anion Gap Estim Creat Clear Calc Estimated GFR POC Glucose 215 H 182 H Random Glucose Calcium Random Vancomycin 18.9 Microbiology Microbiology Results: Microbiology 04/17/24 08:15 Gram Stain - Final Foot - Abscess Routine Culture - Preliminary Culture in progress. Anaerobic Culture - Preliminary Culture in progress. 04/15/24 18:05 Blood Culture - Final Blood - Venous Citrobacter koseri 04/15/24 18:05 Blood Culture - Final Blood - Venous Citrobacter koseri Assessment and Plan (1) Foot abscess: Status: Acute (2) Osteomyelitis: Status: Acute (3) Uncontrolled diabetes mellitus with hyperglycemia: Status: Acute Plan This is a Neville Marcelino Pinedo is a 48 years old man with past medical history significant for type 2 diabetes mellitus on insulin, hypertension and hyperlipidemia with worsening foot wound found to have foot abscess and osteomyelitis with sepsis Sepsis secondary to right foot cellulitis/abscess/acute osteomyelitis of the 5th metatarsal and GNR bacteremia related to underlying uncontrolled diabetes sepsis resolved. lactic acid normalized after IVF treated initially with IV Zosyn and vancomycin Blood cultures 2/2 citrobacter koseri - will transition zosyn to IV ceftriaxone wound cultures from surgery growing GPC - continue IV vancomycin for now and await final speciation seen by surgery - s/p abscess drainage/debridement in [place] 04/17 ID consult pending for osteomyelitis/bacteremia, will likely need terminal worker abx sob - resolved cxr showing ?pneumonia, but no cough and respiratory symptoms resolved. on antibiotics for above trop negative, bnp 164. echo normal weaned off oxygen, high 90s on room air Uncontrolled type 2 diabetes mellitus. hba1c - 9.4 Continue Lantus and insulin sliding scale, ADA diet Hyperlipidemia has been not been taking statin Essential hypertension. Lisinopril on hold due to soft blood pressure but pharmacy reports not taking at baseline BP stable, hold for now normocytic anemia likely due to acute illness no evidence of acute blood loss H/H stable mild hyponatremia resolved DVT prophylaxis: Lovenox Code status: Full requires ongoing inpatient stay for management of right foot cellulitis/osteomyelitis treatment with IV fluids and IV antibiotics Quality Stroke Does the patient have a stroke diagnosis?: No VTE Prior VTE?: No VTE Risk Level:: Medical - moderate - high VTE Device Contraindication: Treatment Not Indicated VTE Drug Contraindication: N/A - Med Ordered
--- NOTE | 2024-04-18 14:38 | HO.POSTANES ---
Post Anesthesia Evaluation Post Anesthesia Evaluation Date of Service: 04/17/24 Vital Signs: Vital Signs Temp Pulse Resp BP Pulse Ox O2 Del Method 04/18/24 11:39 97.1 F 71 16 113/74 96 Room Air 04/18/24 11:14 95 Room Air 04/18/24 07:32 97.0 F 72 16 129/63 91 L Room Air 04/18/24 03:19 97.9 F 75 18 131/60 94 Room Air Anesthesia: Monitored Mental Status: Awake Pain Control: Satisfactory Nausea/Vomiting: None Hydration: Adequate Anesthesia-Related Issues: No Anes. Related Issues
[2024-04-18] MEDS: cefTRIAXone sodium 2 GM VIAL IVPUSH (14:55)
[2024-04-18] MEDS: 0.9 % Sodium Chloride Flush 3 ML SYRINGE IVFLUSH (14:55)
[2024-04-18] MEDS: polyethylene glycoL 3350 17 GM POWD.PACK PO (15:06)
[2024-04-18 15:22] VITALS: BP 146/76; PULSE 77; RESP 16; TEMP 36.3; O2SAT 95
[2024-04-18 16:07] LABS: Glucose, Whole Blood 101 mg/dL (60-115)
[2024-04-18 19:04] VITALS: BP 155/77; PULSE 78; RESP 15; TEMP 36.5; O2SAT 95
[2024-04-18 20:26] LABS: Glucose, Whole Blood 152 mg/dL (60-115)
[2024-04-18] MEDS: Insulin Glargine,Hum.rec.anlog 100 UNIT/ML 10 ML VIAL 30 UNIT SUBCUT (21:03)
[2024-04-18] MEDS: vancomycin HCL 1,250 MG in 0.9 % Sodium Chloride 250 ML 166.66 MG IV (21:04)
[2024-04-18] MEDS: Docusate Sodium 100 MG CAPSULE PO (21:04)
[2024-04-19] VITALS (7 sets, daily range): BP systolic 137–161; BP diastolic 67–81; PULSE 71–85; RESP 16–20; TEMP 36.1–37.4; O2SAT 94–98
--- NOTE | 2024-04-19 00:08 | P.CNID_ITS ---
History of Present Illness Data of Consult Service Date: 04/18/24 Requesting physician: Yohana Guzman Primary Care Provider: Nicho Saravia PA-C HPI Reason for consult: diabetic right foot abscess and OM He presents with right foot swelling and discomfort. He has said he had shoes that may not have fit well and went to trip to [place] over and was active. He noticed some rubbing sensation lateral right foot and when back on April 06 foot felt worse and was draining yellow/red fluid. He took some Ampicillin OTC from [place] but area became worse and came to ER. He has Citrobacter koseri 2/2 blood culture weems sensitive from 04/15. He had surgery Dr Mcarthur and now followed by Dr Abarca. Dr Mcarthur drained large 5-7 cm abscess and culture are pending. He had MRI of foot showed OM 5th MT base and lateral mid foot 5th tarsometatarsal junction concern also. Temperature on arrival was 101.1 and pulse 103. Review of Systems 2 Review of Systems: Yes all other systems are reviewed and are negative Constitutional: Constitutional: Reports fever(s) Musculoskeletal: Musculoskeletal: Reports radiating pain into limb PMFSH Past Medical History Medical History Foot abscess Vitamin D deficiency Left rotator cuff tear Metatarsal fracture Hyperlipidemia LDL goal <100 Pilonidal cyst Type 2 diabetes mellitus with diabetic neuropathy, unspecified Obesity due to excess calories Type 2 diabetes mellitus with hyperglycemia, with long-term current use of insulin Type 2 diabetes mellitus with diabetic polyneuropathy Family History Family History Father No problems noted. Mother No problems noted. Paternal Grandfather Colon cancer Family history: reviewed and not pertinent Surgical History Surgical History History of drainage of abscess Social History Social History Household Members: Children Housing: Apartment Do you presently have visiting nurse or other home services: No Alcohol intake: never Patient Tobacco Use Status: Never used Tobacco e-Cigarette/Vaping Use: Never Used Second Hand Smoke Exposure: No service: No Current occupational status: employed Cognitive needs: No Hearing needs: No Vision needs: No Meds Allergies Allergy/AdvReac Type Severity Reaction Status Date / Time empagliflozin AdvReac Intermediate GI upset Verified 04/15/24 17:38 [From Jardiance] Active Medications: Current Medications Acetaminophen (Acetaminophen 325 Mg Tablet) 975 mg PO Q6H PRN PRN Reason: Pain, Mild (Pain Scale 1-3), fever or headache Last Admin: 04/17/24 02:01 Dose: 975 mg Albuterol Sulfate (Albuterol Sulfate 90 Mcg 8 Gm Inhaler) 2 puff INHALE Q6H PRN PRN Reason: shortness of breath or wheezing Albuterol Sulfate (Albuterol Sulfate (0.083%) 2.5 Mg/3 Ml Vial.Neb) 2.5 mg INHALE Q4H PRN PRN Reason: Shortness of Breath/Wheezing Ceftriaxone Sodium (Ceftriaxone Sodium 2 Gm Vial) 2 gm IVPUSH Q24H [facility] Last Admin: 04/18/24 14:55 Dose: 2 gm Docusate Sodium (Docusate Sodium 100 Mg Capsule) 100 mg PO BEDTIME [facility] Last Admin: 04/18/24 21:04 Dose: 100 mg Enoxaparin Sodium (Enoxaparin Sodium 40 Mg/0.4 Ml Syringe) 40 mg SUBCUT Q24H [facility] Last Admin: 04/18/24 08:25 Dose: 40 mg Glucose (Glucose Gel 15 Gm Gel..Gram.) 15 gm PO Q15M PRN; Protocol PRN Reason: per Hypoglycemia Standing Ord. Hydromorphone HCl (Hydromorphone Hcl 0.5 Mg/0.5 Ml Syringe) 0.5 mg IVPUSH Q4H PRN; Protocol PRN Reason: Pain, Severe (Pain Scale 7-10) Dextrose (D10) 250 mls @ 750 mls/hr IV Q15M PRN; Protocol PRN Reason: per Hypoglycemia Standing Ord. Vancomycin HCl 1,250 mg/ (Sodium Chloride) 250 mls @ 166.667 mls/hr IV Q8H [facility] Last Infusion: 04/18/24 22:34 Dose: Infused Piperacillin Sod/Tazobactam (Sod 3.375 gm/ Sodium Chloride) 50 mls @ 100 mls/hr IV Q6H [facility] Insulin Glargine (Insulin Glargine,Hum.Rec.Anlog 100 Unit/Ml 10 Ml Vial) 30 unit SUBCUT BEDTIME [facility] Last Admin: 04/18/24 21:03 Dose: 1 unit Insulin Human Lispro (Insulin Lispro 100 Unit/Ml 3 Ml Vial) 0 unit SUBCUT QIDACHS [facility]; Protocol Last Admin: 04/18/24 21:04 Dose: 4 unit Oxycodone HCl (Oxycodone Hcl Immed Release 5 Mg Tablet) 5 mg PO Q6H PRN PRN Reason: Pain, Moderate(Pain Scale 4-6) Last Admin: 04/17/24 02:01 Dose: 5 mg Pharmacy Consult (Consult Rx Vancomycin Dosing) 1 each MISCELLANE DAILY PRN PRN Reason: Consult order Polyethylene Glycol (Polyethylene Glycol 3350 17 Gm Powd.Pack) 17 gm PO DAILY PRN PRN Reason: Constipation Last Admin: 04/18/24 15:06 Dose: 17 gm Sodium Chloride (0.9 % Sodium Chloride Flush 3 Ml Syringe) 3 ml IVFLUSH QSHIFT [facility] Last Admin: 04/18/24 14:55 Dose: 3 ml Vitamin D (Cholecalciferol (Vitamin D3) 25 Mcg Tablet) 25 mcg PO DAILY [facility] Last Admin: 04/18/24 08:25 Dose: 25 mcg Home Medications ?Medication ?Instructions ?Recorded ?Confirmed ?Last Taken ?Type ibuprofen 800 mg tablet 800 mg PO TID PRN Fever Or Pain 04/16/24 04/16/24 Unknown History Physical Exam 2 Vital Signs: Vital Signs: Last Vital Signs Temp 97.7 F 04/18/24 19:04 Pulse 78 04/18/24 19:04 Resp 15 04/18/24 19:04 BP 155/77 H 04/18/24 19:04 Pulse Ox 95 04/18/24 19:04 O2 Del Method Room Air 04/18/24 19:04 O2 Flow Rate 2 04/17/24 23:09 BMI result Body Mass Index 32.5 Const: General: cooperative HEENT: Head: Yes normal to inspection Face and sinus: Yes normal facial exam Mouth: Normal oral and palatal mucosa present Teeth and gingiva: d entition normal Eyes: General: appearance normal, both eyes and all related structures P upils: Equal, round and reactive pupils present Resp: Effort & Inspection: normal respiratory effort Cardio: Rate: regular rate Rhythm: regular rhythm Peripheral pulses: d orsalis pedis present GI: Palpation (GI): Soft to palpation and nontender : General: Yes no CVA tenderness Back/Spine/Pelvis: Back: no CVA tenderness Skin: General skin exam: no rashes or lesions noted Neuro: Other: bilateral dense neuropathy feet General: moves all extremities Cranial nerves: Yes Equal, round and reactive pupils present Sensory Exam: No Bilaterally stereognosis intact Extrem: Other: right soft tissue defect packed lateral foot postop Psych: Appearance: grossly normal Results Labs 04/18/24 05:57 04/18/24 05:57 Labs: Short CBC 04/18/24 Range/Units 05:57 WBC 12.1 H (4.8-10.8) X10*3/uL Hgb 9.7 L (14.0-18.0) g/dl Hct 29.6 L (42.0-52.0) % Plt Count 449 H D (160-400) X10*3/uL BMP 04/18/24 05:57 Sodium 137 Potassium 4.3 Chloride 102 Carbon Dioxide 25 BUN 15 Creatinine 1.03 Calcium 8.8 D Microbiology Microbiology Results: Microbiology 04/17/24 08:15 Foot - Abscess Gram Stain - Final 04/17/24 08:15 Foot - Abscess Routine Culture - Preliminary Culture in progress. 04/17/24 08:15 Foot - Abscess Anaerobic Culture - Preliminary Culture in progress. 04/15/24 18:05 Blood - Venous Blood Culture - Final Citrobacter koseri 04/15/24 18:05 Blood - Venous Blood Culture - Final Citrobacter koseri Assessment and Plan (1) Foot abscess: Status: Acute (2) Osteomyelitis: Status: Acute (3) Uncontrolled diabetes mellitus with hyperglycemia: Qualifiers: Diabetes mellitus type: type 2 Qualified Code(s): E11.65 - Type 2 diabetes mellitus with hyperglycemia Status: Acute (4) Sepsis: Qualifiers: Sepsis type: sepsis due to unspecified organism Sepsis acute organ dysfunction status: without acute organ dysfunction Qualified Code(s): A41.9 - Sepsis, unspecified organism Status: Acute (5) Foot osteomyelitis, right: Qualifiers: Osteomyelitis type: unspecified type Qualified Code(s): M86.9 - Osteomyelitis, unspecified Status: Acute (6) HTN (hypertension): Qualifiers: Hypertension type: primary hypertension Qualified Code(s): I10 - Essential (primary) hypertension Status: Acute Plan Severe diabetic foot infection with abscess as well as osteomyelitis with unusual organism and sepsis. He has had surgery. Foot is still at risk due to aggressive nature of this infection. He has bacteremia with Citrobacter Koseri,often found in water and soil. Duration of antibiotics to be determined as well as IV versus po. Would switch to broad spectrum penicillin based antibiotic that also covers anerobes, I did switch Ceftriaxone to Zosyn and will continue Vancomycin also pending final cultures. Follow with Surgery as well. Do not see signs of endocarditis and unusual for gram negative organisms but could check echo.
[2024-04-19] MEDS: 0.9 % Sodium Chloride Flush 3 ML SYRINGE IVFLUSH ×4 (00:21→20:52)
[2024-04-19] MEDS: Piperacillin Sodium/Tazobactam 3.375 GM in 0.9 % Sodium Chloride 50 ML IV ×5 (00:54→23:37)
[2024-04-19] MEDS: vancomycin HCL 1,250 MG in 0.9 % Sodium Chloride 250 ML 166.66 MG IV (03:52)
[2024-04-19 07:17] LABS: Glucose, Whole Blood 161 mg/dL (60-115)
[2024-04-19 07:17] LABS: Creatinine Clr Calc Pharmacy 134.5; Estimated Glomerular Filt Rate > 60
[2024-04-19 07:27] LABS: Hematocrit 27.2 % (42.0-52.0); Hemoglobin 8.8 g/dl (14.0-18.0); Mean Corpuscular HGB Conc 32.4 g/dl (31.0-36.0); Mean Corpuscular Hemoglobin 26.2 pg (27.0-33.0); Mean Platelet Volume 10.2 fL (9.4-12.4); Platelet Count 432 X10*3/uL (160-400); Red Blood Count 3.36 X10*6/uL (4.60-5.80); Red Cell Distribution Width 13.7 % (11.0-16.0); White Blood Count 9.8 X10*3/uL (4.8-10.8)
[2024-04-19] MEDS: Insulin Lispro 100 UNIT/ML 3 ML VIAL SUBCUT ×3 (07:47→20:47)
[2024-04-19] MEDS: Cholecalciferol (Vitamin D3) 25 MCG TABLET PO (07:50)
[2024-04-19] MEDS: Enoxaparin Sodium 40 MG/0.4 ML SYRINGE SUBCUT (07:50)
[2024-04-19 10:31] LABS: Vancomycin Random 19.5 mcg/mL (15-20)
--- NOTE | 2024-04-19 11:10 | HE.PHANOTE ---
VANCO DOSE ADJUSTMENT BASED ON SCR OF 0.86 AND TROUGH OF 19.5 DOSE CHANGED TO 1000 Q 8 FOR ESTIMATED AUC OF 528 LEVEL OF 15.2. NEXT LEVEL 04/20 @ 1000
[2024-04-19 11:22] LABS: Glucose, Whole Blood 120 mg/dL (60-115)
--- NOTE | 2024-04-19 11:31 | P.PNGS_ITS ---
Subjective Subjective Date of Service: 04/19/24 Interval history: Feels well denies pain Physical Exam 2 Vital Signs: Vital Signs: Last Vital Signs Temp 97.2 F 04/19/24 07:15 Pulse 77 04/19/24 07:15 Resp 16 04/19/24 07:15 BP 145/74 H 04/19/24 07:15 Pulse Ox 96 04/19/24 07:15 O2 Del Method Room Air 04/19/24 07:15 O2 Flow Rate 2 04/17/24 23:09 BMI result Body Mass Index 32.5 Const: General: comfortable and no acute distress Resp: Effort & Inspection: normal respiratory effort Extrem: Other: Right foot - open wound from I&D site clean, ulcer on the lateral plantar area connecting to this also clean Objective Data Active Medications Acetaminophen (Acetaminophen 325 Mg Tablet) 975 mg PO Q6H PRN PRN Reason: Pain, Mild (Pain Scale 1-3), fever or headache Last Admin: 04/17/24 02:01 Dose: 975 mg Documented By: GUILLERMINA Albuterol Sulfate (Albuterol Sulfate 90 Mcg 8 Gm Inhaler) 2 puff INHALE Q6H PRN PRN Reason: shortness of breath or wheezing Albuterol Sulfate (Albuterol Sulfate (0.083%) 2.5 Mg/3 Ml Vial.Neb) 2.5 mg INHALE Q4H PRN PRN Reason: Shortness of Breath/Wheezing Docusate Sodium (Docusate Sodium 100 Mg Capsule) 100 mg PO BEDTIME [facility] Last Admin: 04/18/24 21:04 Dose: 100 mg Documented By: SHAREE Enoxaparin Sodium (Enoxaparin Sodium 40 Mg/0.4 Ml Syringe) 40 mg SUBCUT Q24H [facility] Last Admin: 04/19/24 07:50 Dose: 40 mg Documented By: JAYCE Glucose (Glucose Gel 15 Gm Gel..Gram.) 15 gm PO Q15M PRN; Protocol PRN Reason: per Hypoglycemia Standing Ord. Hydromorphone HCl (Hydromorphone Hcl 0.5 Mg/0.5 Ml Syringe) 0.5 mg IVPUSH Q4H PRN; Protocol PRN Reason: Pain, Severe (Pain Scale 7-10) Dextrose (D10) 250 mls @ 750 mls/hr IV Q15M PRN; Protocol PRN Reason: per Hypoglycemia Standing Ord. Piperacillin Sod/Tazobactam (Sod 3.375 gm/ Sodium Chloride) 50 mls @ 100 mls/hr IV Q6H [facility] Last Infusion: 04/19/24 06:47 Dose: Infused Documented By: TRES Vancomycin HCl 1,000 mg/ (Sodium Chloride) 270 mls @ 270 mls/hr IV Q8H [facility] Insulin Glargine (Insulin Glargine,Hum.Rec.Anlog 100 Unit/Ml 10 Ml Vial) 30 unit SUBCUT BEDTIME [facility] Last Admin: 04/18/24 21:03 Dose: 1 unit Documented By: SHAREE Insulin Human Lispro (Insulin Lispro 100 Unit/Ml 3 Ml Vial) 0 unit SUBCUT QIDACHS [facility]; Protocol Last Admin: 04/19/24 07:47 Dose: 4 unit Documented By: JAYCE Oxycodone HCl (Oxycodone Hcl Immed Release 5 Mg Tablet) 5 mg PO Q6H PRN PRN Reason: Pain, Moderate(Pain Scale 4-6) Last Admin: 04/17/24 02:01 Dose: 5 mg Documented By: GUILLERMINA Pharmacy Consult (Consult Rx Vancomycin Dosing) 1 each MISCELLANE DAILY PRN PRN Reason: Consult order Polyethylene Glycol (Polyethylene Glycol 3350 17 Gm Powd.Pack) 17 gm PO DAILY PRN PRN Reason: Constipation Last Admin: 04/18/24 15:06 Dose: 17 gm Documented By: JAYCE Comments: patient requested for constipation Sodium Chloride (0.9 % Sodium Chloride Flush 3 Ml Syringe) 3 ml IVFLUSH QSHIFT [facility] Last Admin: 04/19/24 07:54 Dose: 3 ml Documented By: JAYCE Vitamin D (Cholecalciferol (Vitamin D3) 25 Mcg Tablet) 25 mcg PO DAILY [facility] Last Admin: 04/19/24 07:50 Dose: 25 mcg Documented By: JAYCE Labs 04/19/24 05:41 04/19/24 05:41 Labs: Laboratory Results - last 24 hr 04/18/24 04/18/24 04/19/24 15:58 20:17 05:41 MCV 81.0 MCH 26.2 L MCHC 32.4 RDW 13.7 Plt Count 432 H MPV 10.2 Absolute Nucleated RBC 0.000 Nucleated RBC % (auto) 0.0 Estim Creat Clear Calc 134.5 Estimated GFR > 60 POC Glucose 101 152 H Random Vancomycin 04/19/24 04/19/24 04/19/24 07:06 10:04 11:02 MCV MCH MCHC RDW Plt Count MPV Absolute Nucleated RBC Nucleated RBC % (auto) Estim Creat Clear Calc Estimated GFR POC Glucose 161 H 120 H Random Vancomycin 19.5 Microbiology Microbiology Results: Microbiology 04/17/24 08:15 Gram Stain - Final Foot - Abscess Routine Culture - Preliminary Gram negative santos Viridans streptococcus group Anaerobic Culture - Preliminary Culture in progress. 04/15/24 18:05 Blood Culture - Final Blood - Venous Citrobacter koseri 04/15/24 18:05 Blood Culture - Final Blood - Venous Citrobacter koseri Procedures Date of Service Date of Service: 04/19/24 Progress Note: A&P Assessment and plan (1) Foot abscess: Status: Acute Assessment and Plan: I&D site clean Induration much improved I changed his dressings - applied light wet-to-dry packing Wrapped foot with Kerlix IV antibiotics Daily wound care Time Spent With Patient Time: Total time managing care of this patient today ____ minutes. Quality Stroke Does the patient have a stroke diagnosis?: No VTE Prior VTE?: No VTE Risk Level:: Medical - moderate - high VTE Device Contraindication: Treatment Not Indicated VTE Drug Contraindication: N/A - Med Ordered
[2024-04-19] MEDS: vancomycin HCL 1,000 MG in 0.9 % Sodium Chloride 250 ML 270 MG IV ×2 (11:58→20:44)
--- NOTE | 2024-04-19 13:46 | P.PNIM_ITS ---
Subjective Subjective Date of Service: 04/19/24 Interval History: Seen and examined this morning Follow-up for right foot osteomyelitis and abscess feeling well, no specific complaints Review of Systems Review of Systems: Yes all other systems are reviewed and are negative Constitutional Constitutional: Denies chills and Denies fever(s) Cardiovascular Cardiovascular: Denies chest pain Gastrointestinal Gastrointestinal: Denies abdominal pain, Denies nausea and Denies vomiting Physical Exam 2 Vital Signs: Vital Signs: Last Vital Signs Temp 96.9 F 04/19/24 12:00 Pulse 85 04/19/24 12:00 Resp 18 04/19/24 12:00 BP 154/67 H 04/19/24 12:00 Pulse Ox 98 04/19/24 12:00 O2 Del Method Room Air 04/19/24 12:00 O2 Flow Rate 2 04/17/24 23:09 BMI result Body Mass Index 32.5 Const: General: cooperative, comfortable, no acute distress, alert and awake Nutritional Appearance: overweight Orientation/consciousness: patient oriented x3 Resp: Other: fine basilar rales on re-evaluation Effort & Inspection: normal respiratory effort, able to speak in complete sentences, no respiratory distress and no use of accessory muscles A uscultation: clear to auscultation bilaterally Cardio: Rate: regular rate GI: Inspection: No distended Palpation (GI): Soft to palpation and nontender Skin: Other: right foot c/d/i dressing; no staining Neuro: General: patient oriented x3, moves all extremities and CN's II-XI intact bilaterally Extrem: Other: RLE with swelling; dressing from surgery clean and dry without staining Objective Data Active Medications Acetaminophen (Acetaminophen 325 Mg Tablet) 975 mg PO Q6H PRN PRN Reason: Pain, Mild (Pain Scale 1-3), fever or headache Last Admin: 04/17/24 02:01 Dose: 975 mg Documented By: GUILLERMINA Albuterol Sulfate (Albuterol Sulfate 90 Mcg 8 Gm Inhaler) 2 puff INHALE Q6H PRN PRN Reason: shortness of breath or wheezing Albuterol Sulfate (Albuterol Sulfate (0.083%) 2.5 Mg/3 Ml Vial.Neb) 2.5 mg INHALE Q4H PRN PRN Reason: Shortness of Breath/Wheezing Docusate Sodium (Docusate Sodium 100 Mg Capsule) 100 mg PO BEDTIME [facility] Last Admin: 04/18/24 21:04 Dose: 100 mg Documented By: SHAREE Enoxaparin Sodium (Enoxaparin Sodium 40 Mg/0.4 Ml Syringe) 40 mg SUBCUT Q24H [facility] Last Admin: 04/19/24 07:50 Dose: 40 mg Documented By: JAYCE Glucose (Glucose Gel 15 Gm Gel..Gram.) 15 gm PO Q15M PRN; Protocol PRN Reason: per Hypoglycemia Standing Ord. Hydromorphone HCl (Hydromorphone Hcl 0.5 Mg/0.5 Ml Syringe) 0.5 mg IVPUSH Q4H PRN; Protocol PRN Reason: Pain, Severe (Pain Scale 7-10) Dextrose (D10) 250 mls @ 750 mls/hr IV Q15M PRN; Protocol PRN Reason: per Hypoglycemia Standing Ord. Piperacillin Sod/Tazobactam (Sod 3.375 gm/ Sodium Chloride) 50 mls @ 100 mls/hr IV Q6H [facility] Last Admin: 04/19/24 13:17 Dose: 100 mls/hr Documented By: JAYCE Vancomycin HCl 1,000 mg/ (Sodium Chloride) 270 mls @ 270 mls/hr IV Q8H [facility] Last Infusion: 04/19/24 13:28 Dose: Infused Documented By: JAYCE Insulin Glargine (Insulin Glargine,Hum.Rec.Anlog 100 Unit/Ml 10 Ml Vial) 30 unit SUBCUT BEDTIME [facility] Last Admin: 04/18/24 21:03 Dose: 1 unit Documented By: SHAREE Insulin Human Lispro (Insulin Lispro 100 Unit/Ml 3 Ml Vial) 0 unit SUBCUT QIDACHS [facility]; Protocol Last Admin: 04/19/24 11:41 Dose: Not Given Documented By: JAYCE Non-Admin Reason: No Insulin Coverage Oxycodone HCl (Oxycodone Hcl Immed Release 5 Mg Tablet) 5 mg PO Q6H PRN PRN Reason: Pain, Moderate(Pain Scale 4-6) Last Admin: 04/17/24 02:01 Dose: 5 mg Documented By: GUILLERMINA Pharmacy Consult (Consult Rx Vancomycin Dosing) 1 each MISCELLANE DAILY PRN PRN Reason: Consult order Polyethylene Glycol (Polyethylene Glycol 3350 17 Gm Powd.Pack) 17 gm PO DAILY PRN PRN Reason: Constipation Last Admin: 04/18/24 15:06 Dose: 17 gm Documented By: JAYCE Comments: patient requested for constipation Sodium Chloride (0.9 % Sodium Chloride Flush 3 Ml Syringe) 3 ml IVFLUSH QSHIFT [facility] Last Admin: 04/19/24 07:54 Dose: 3 ml Documented By: JAYCE Vitamin D (Cholecalciferol (Vitamin D3) 25 Mcg Tablet) 25 mcg PO DAILY [facility] Last Admin: 04/19/24 07:50 Dose: 25 mcg Documented By: JAYCE Labs 04/19/24 05:41 04/19/24 05:41 Labs: Laboratory Results - last 24 hr 04/18/24 04/18/24 04/19/24 15:58 20:17 05:41 MCV 81.0 MCH 26.2 L MCHC 32.4 RDW 13.7 Plt Count 432 H MPV 10.2 Absolute Nucleated RBC 0.000 Nucleated RBC % (auto) 0.0 Estim Creat Clear Calc 134.5 Estimated GFR > 60 POC Glucose 101 152 H Random Vancomycin 04/19/24 04/19/24 04/19/24 07:06 10:04 11:02 MCV MCH MCHC RDW Plt Count MPV Absolute Nucleated RBC Nucleated RBC % (auto) Estim Creat Clear Calc Estimated GFR POC Glucose 161 H 120 H Random Vancomycin 19.5 Microbiology Microbiology Results: Microbiology 04/17/24 08:15 Gram Stain - Final Foot - Abscess Routine Culture - Preliminary Gram negative santos Viridans streptococcus group Anaerobic Culture - Preliminary Culture in progress. Assessment and Plan (1) Foot abscess: Status: Acute (2) Osteomyelitis: Status: Acute Plan This is a Neville Pinedo is a 48 years old man with past medical history significant for type 2 diabetes mellitus on insulin, hypertension and hyperlipidemia with worsening foot wound found to have foot abscess and osteomyelitis with sepsis Sepsis secondary to right foot cellulitis/abscess/acute osteomyelitis of the 5th metatarsal and GNR bacteremia related to underlying uncontrolled diabetes sepsis resolved. lactic acid normalized after IVF seen by surgery - s/p abscess drainage/debridement in OR 04/17 Blood cultures 2/2 citrobacter koseri wound cultures from surgery growing GNR, strep viridans group - follow final sensitivities continue IV Zosyn and vancomycin ID consult pending for osteomyelitis/bacteremia, duration of abx TBD sob - resolved cxr showing ?pneumonia, but no cough and respiratory symptoms resolved. on antibiotics for above trop negative, bnp 164. echo normal weaned off oxygen, high 90s on room air Uncontrolled type 2 diabetes mellitus. hba1c - 9.4 Continue Lantus and insulin sliding scale, ADA diet Hyperlipidemia has been not been taking statin Essential hypertension. Lisinopril on hold due to soft blood pressure but pharmacy reports not taking at baseline - was previously on 5mg daily bp trending up will re-start normocytic anemia likely due to acute illness no evidence of acute blood loss above transfusion threshold mild hyponatremia resolved DVT prophylaxis: Lovenox Code status: Full requires ongoing inpatient stay for management of right foot cellulitis/osteomyelitis treatment with IV fluids and IV antibiotics Quality Stroke Does the patient have a stroke diagnosis?: No VTE Prior VTE?: No VTE Risk Level:: Medical - moderate - high VTE Device Contraindication: Treatment Not Indicated VTE Drug Contraindication: N/A - Med Ordered
--- NOTE | 2024-04-19 14:00 | PC.NURSE ---
Foot drsg done by Dr. Abarca
--- NOTE | 2024-04-19 15:21 | PC.NURSE ---
BP 160/80 pulse 71 ,patient refused Lisinopril,ROSALIND Muller made aware
[2024-04-19 16:15] LABS: Glucose, Whole Blood 265 mg/dL (60-115)
[2024-04-19 20:35] LABS: Glucose, Whole Blood 229 mg/dL (60-115)
[2024-04-19] MEDS: Docusate Sodium 100 MG CAPSULE PO (20:43)
[2024-04-19] MEDS: Insulin Glargine,Hum.rec.anlog 100 UNIT/ML 10 ML VIAL 30 UNIT SUBCUT (20:48)
[2024-04-20 03:24] VITALS: BP 121/56; PULSE 83; RESP 18; TEMP 36.8; O2SAT 93
[2024-04-20] MEDS: vancomycin HCL 1,000 MG in 0.9 % Sodium Chloride 250 ML 270 MG IV ×2 (03:30→11:38)
[2024-04-20 05:56] LABS: Creatinine Clr Calc Pharmacy 141.1; Estimated Glomerular Filt Rate > 60
[2024-04-20] MEDS: Piperacillin Sodium/Tazobactam 3.375 GM in 0.9 % Sodium Chloride 50 ML IV (06:31)
[2024-04-20 07:23] VITALS: BP 138/76; PULSE 71; RESP 14; TEMP 37; O2SAT 94
[2024-04-20 07:26] LABS: Glucose, Whole Blood 121 mg/dL (60-115)
[2024-04-20] MEDS: Cholecalciferol (Vitamin D3) 25 MCG TABLET PO (08:08)
[2024-04-20] MEDS: Insulin Lispro 100 UNIT/ML 3 ML VIAL SUBCUT ×4 (08:08→21:09)
[2024-04-20] MEDS: Enoxaparin Sodium 40 MG/0.4 ML SYRINGE SUBCUT (08:09)
[2024-04-20] MEDS: 0.9 % Sodium Chloride Flush 3 ML SYRINGE IVFLUSH ×2 (08:10→21:09)
[2024-04-20 11:07] LABS: Vancomycin Random 14.3 mcg/mL (15-20)
--- NOTE | 2024-04-20 11:18 | MHC.CM.PN ---
PT FROM HOME WITH NO SERVICES PER SURGERY NOTE, WOUND CARE CURRENTLY NEEDED DAILY REFERRAL MADE FOR [facility], HOWEVER THEY WILL NOT BE ABLE TO DO DAILY VISITS PT/[facility] SHOULD BE TAUGHT DRESSING CHANGES AND PT WILL NEED SUPPLIES AT [place]
[2024-04-20 11:26] VITALS: BP 156/78; PULSE 69; RESP 14; TEMP 36.6; O2SAT 95
[2024-04-20 11:35] LABS: Glucose, Whole Blood 175 mg/dL (60-115)
--- NOTE | 2024-04-20 12:17 | HO.PM.IMPN ---
Subjective Subjective Date of Service: 04/20/24 Interval History: Being followed for right foot cellulitis/abscess and acute osteomyelitis of 5th metatarsal with Gram-negative santos bacteremia and uncontrolled diabetes. Patient is nervous about foot infection otherwise denies fever, no chills, no pain complaining of tingling right foot, tolerating diet with no nausea no vomiting or abdominal pain. Review of Systems All other system reviewed and are negative. Physical Exam Vital Signs: Vital Signs: Last Vital Signs Temp 97.9 F 04/20/24 11:26 Pulse 69 04/20/24 11:26 Resp 14 04/20/24 11:26 BP 156/78 H 04/20/24 11:26 Pulse Ox 95 04/20/24 11:26 O2 Del Method Room Air 04/20/24 11:26 O2 Flow Rate 2 04/17/24 23:09 BMI result Body Mass Index 32.5 Const: Other: General resting comfortably in no acute distress. Anicteric sclera Neck no JVD. CVS regular rate rhythm, Respiratory lungs clear to auscultation, no respiratory distress, no wheeze, no rhonchi. Gastrointestinal abdomen soft, non tender, bowel sounds audible, no guarding , no rigidity. Extremities left leg no edema. Right foot swelling, open wound lateral plantar surface no surrounding fluctuation, no erythema, serosanguineous drainage on old dressing Neuro non focal Psych appropriate affect Objective Data Active Medications Acetaminophen (Acetaminophen 325 Mg Tablet) 975 mg PO Q6H PRN PRN Reason: Pain, Mild (Pain Scale 1-3), fever or headache Last Admin: 04/17/24 02:01 Dose: 975 mg Documented By: GUILLERMINA Albuterol Sulfate (Albuterol Sulfate 90 Mcg 8 Gm Inhaler) 2 puff INHALE Q6H PRN PRN Reason: shortness of breath or wheezing Albuterol Sulfate (Albuterol Sulfate (0.083%) 2.5 Mg/3 Ml Vial.Neb) 2.5 mg INHALE Q4H PRN PRN Reason: Shortness of Breath/Wheezing Docusate Sodium (Docusate Sodium 100 Mg Capsule) 100 mg PO BEDTIME [facility] Last Admin: 04/19/24 20:43 Dose: 100 mg Documented By: CECILE Enoxaparin Sodium (Enoxaparin Sodium 40 Mg/0.4 Ml Syringe) 40 mg SUBCUT Q24H [facility] Last Admin: 04/20/24 08:09 Dose: 40 mg Documented By: MEKHI Glucose (Glucose Gel 15 Gm Gel..Gram.) 15 gm PO Q15M PRN; Protocol PRN Reason: per Hypoglycemia Standing Ord. Dextrose (D10) 250 mls @ 750 mls/hr IV Q15M PRN; Protocol PRN Reason: per Hypoglycemia Standing Ord. Piperacillin Sod/Tazobactam (Sod 3.375 gm/ Sodium Chloride) 50 mls @ 100 mls/hr IV Q6H [facility] Last Infusion: 04/20/24 07:06 Dose: Infused Documented By: MEKHI Vancomycin HCl 1,000 mg/ (Sodium Chloride) 270 mls @ 270 mls/hr IV Q8H [facility] Last Admin: 04/20/24 11:38 Dose: 270 mls/hr Documented By: MEKHI Insulin Glargine (Insulin Glargine,Hum.Rec.Anlog 100 Unit/Ml 10 Ml Vial) 30 unit SUBCUT BEDTIME [facility] Last Admin: 04/19/24 20:48 Dose: 30 unit Documented By: CECILE Insulin Human Lispro (Insulin Lispro 100 Unit/Ml 3 Ml Vial) 0 unit SUBCUT QIDACHS [facility]; Protocol Last Admin: 04/20/24 11:57 Dose: 4 unit Documented By: MEKHI Lisinopril (Lisinopril 5 Mg Tablet) 5 mg PO DAILY [facility]; Protocol Last Admin: 04/20/24 07:59 Dose: Not Given Documented By: MEKHI Non-Admin Reason: Patient Refused Oxycodone HCl (Oxycodone Hcl Immed Release 5 Mg Tablet) 5 mg PO Q6H PRN PRN Reason: Pain, Moderate(Pain Scale 4-6) Last Admin: 04/17/24 02:01 Dose: 5 mg Documented By: GUILLERMINA Pharmacy Consult (Consult Rx Vancomycin Dosing) 1 each MISCELLANE DAILY PRN PRN Reason: Consult order Polyethylene Glycol (Polyethylene Glycol 3350 17 Gm Powd.Pack) 17 gm PO DAILY PRN PRN Reason: Constipation Last Admin: 04/18/24 15:06 Dose: 17 gm Documented By: JAYCE Comments: patient requested for constipation Sodium Chloride (0.9 % Sodium Chloride Flush 3 Ml Syringe) 3 ml IVFLUSH QSHIFT [facility] Last Admin: 04/20/24 08:10 Dose: 3 ml Documented By: MEKHI Vitamin D (Cholecalciferol (Vitamin D3) 25 Mcg Tablet) 25 mcg PO DAILY [facility] Last Admin: 04/20/24 08:08 Dose: 25 mcg Documented By: MEKHI Labs 04/19/24 05:41 04/20/24 05:11 Labs: Laboratory Results - last 24 hr 04/19/24 04/19/24 04/20/24 16:08 20:28 05:11 Hold Purple Top SEE NOTE Estim Creat Clear Calc 141.1 Estimated GFR > 60 POC Glucose 265 H 229 H Random Vancomycin 04/20/24 04/20/24 04/20/24 07:19 10:05 11:18 Hold Purple Top Estim Creat Clear Calc Estimated GFR POC Glucose 121 H 175 H Random Vancomycin 14.3 L Microbiology Microbiology Results: Microbiology 04/17/24 08:15 Gram Stain - Final Foot - Abscess Routine Culture - Final Citrobacter koseri Viridans streptococcus group Anaerobic Culture - Preliminary Culture in progress. Assessment and Plan (1) Foot abscess: Status: Acute (2) Osteomyelitis: Status: Acute (3) Uncontrolled diabetes mellitus with hyperglycemia: Status: Acute (4) Foot osteomyelitis, right: Status: Acute Plan 48 years old man with past medical history significant for type 2 diabetes mellitus on insulin, hypertension and hyperlipidemia with worsening foot wound found to have foot abscess and osteomyelitis with sepsis Sepsis secondary to right foot cellulitis/abscess/acute osteomyelitis of the 5th metatarsal and GNR bacteremia related to underlying uncontrolled diabetes sepsis resolved. lactic acid normalized after IVF seen by surgery - s/p abscess drainage/debridement in OR 04/17 Blood cultures 2/2 citrobacter koseri wound cultures from surgery growing strep viridans group and Citrobacter koseri- follow final sensitivities on IV Zosyn and vancomycin , will DC both antibiotics and place on IV ceftriaxone, discuss antibiotics with ID ID consult pending for osteomyelitis/bacteremia, duration of abx TBD Being followed by General surgery they recommend daily wound care.. sob - resolved cxr showing ?pneumonia, but no cough and respiratory symptoms resolved. on antibiotics for above trop negative, bnp 164. echo normal weaned off oxygen, high 90s on room air Uncontrolled type 2 diabetes mellitus. hba1c - 9.4 Continue Lantus and insulin sliding scale, ADA diet , stable blood sugars Hyperlipidemia has been not been taking statin Essential hypertension. Lisinopril 5 mg daily, patient was not taking home medications , follow BP normocytic anemia likely due to acute illness no evidence of acute blood loss above transfusion threshold mild hyponatremia resolved DVT prophylaxis: Lovenox Code status: Full requires ongoing inpatient stay for management of right foot cellulitis/osteomyelitis treatment with IV fluids and IV antibiotics Quality Stroke Does the patient have a stroke diagnosis?: No VTE Prior VTE?: No VTE Risk Level:: Medical - moderate - high VTE Device Contraindication: Treatment Not Indicated VTE Drug Contraindication: N/A - Med Ordered
[2024-04-20] MEDS: cefTRIAXone sodium 2 GM VIAL IVPUSH (12:58)
[2024-04-20 15:10] VITALS: BP 170/74; PULSE 69; RESP 16; TEMP 37.2; O2SAT 96
--- NOTE | 2024-04-20 15:53 | PM.PNGS ---
Subjective Subjective Date of Service: 04/21/24 Interval history: Patient has no wound issues. He has been undergoing local wound care by nursing staff. Physical Exam Vital Signs: Vital Signs: Last Vital Signs Temp 98.9 F 04/20/24 15:10 Pulse 69 04/20/24 15:10 Resp 16 04/20/24 15:10 BP 170/74 H 04/20/24 15:10 Pulse Ox 96 04/20/24 15:10 O2 Del Method Room Air 04/20/24 15:10 O2 Flow Rate 2 04/17/24 23:09 BMI result Body Mass Index 32.5 Extrem: Other: Dressing clean dry and intact. Objective Data Active Medications Acetaminophen (Acetaminophen 325 Mg Tablet) 975 mg PO Q6H PRN PRN Reason: Pain, Mild (Pain Scale 1-3), fever or headache Last Admin: 04/17/24 02:01 Dose: 975 mg Documented By: GUILLERMINA Albuterol Sulfate (Albuterol Sulfate 90 Mcg 8 Gm Inhaler) 2 puff INHALE Q6H PRN PRN Reason: shortness of breath or wheezing Albuterol Sulfate (Albuterol Sulfate (0.083%) 2.5 Mg/3 Ml Vial.Neb) 2.5 mg INHALE Q4H PRN PRN Reason: Shortness of Breath/Wheezing Ceftriaxone Sodium (Ceftriaxone Sodium 2 Gm Vial) 2 gm IVPUSH Q24H [facility] Last Admin: 04/20/24 12:58 Dose: 2 gm Documented By: MEKHI Docusate Sodium (Docusate Sodium 100 Mg Capsule) 100 mg PO BEDTIME [facility] Last Admin: 04/19/24 20:43 Dose: 100 mg Documented By: CECILE Enoxaparin Sodium (Enoxaparin Sodium 40 Mg/0.4 Ml Syringe) 40 mg SUBCUT Q24H [facility] Last Admin: 04/20/24 08:09 Dose: 40 mg Documented By: MEKHI Glucose (Glucose Gel 15 Gm Gel..Gram.) 15 gm PO Q15M PRN; Protocol PRN Reason: per Hypoglycemia Standing Ord. Dextrose (D10) 250 mls @ 750 mls/hr IV Q15M PRN; Protocol PRN Reason: per Hypoglycemia Standing Ord. Insulin Glargine (Insulin Glargine,Hum.Rec.Anlog 100 Unit/Ml 10 Ml Vial) 30 unit SUBCUT BEDTIME [facility] Last Admin: 04/19/24 20:48 Dose: 30 unit Documented By: CECILE Insulin Human Lispro (Insulin Lispro 100 Unit/Ml 3 Ml Vial) 0 unit SUBCUT QIDACHS [facility]; Protocol Last Admin: 04/20/24 11:57 Dose: 4 unit Documented By: MEKHI Lisinopril (Lisinopril 5 Mg Tablet) 5 mg PO DAILY [facility]; Protocol Last Admin: 04/20/24 07:59 Dose: Not Given Documented By: MEKHI Non-Admin Reason: Patient Refused Oxycodone HCl (Oxycodone Hcl Immed Release 5 Mg Tablet) 5 mg PO Q6H PRN PRN Reason: Pain, Moderate(Pain Scale 4-6) Last Admin: 04/17/24 02:01 Dose: 5 mg Documented By: GUILLERMINA Polyethylene Glycol (Polyethylene Glycol 3350 17 Gm Powd.Pack) 17 gm PO DAILY PRN PRN Reason: Constipation Last Admin: 04/18/24 15:06 Dose: 17 gm Documented By: JAYCE Comments: patient requested for constipation Sodium Chloride (0.9 % Sodium Chloride Flush 3 Ml Syringe) 3 ml IVFLUSH QSHIFT [facility] Last Admin: 04/20/24 08:10 Dose: 3 ml Documented By: MEKHI Vitamin D (Cholecalciferol (Vitamin D3) 25 Mcg Tablet) 25 mcg PO DAILY [facility] Last Admin: 04/20/24 08:08 Dose: 25 mcg Documented By: MEKHI Labs 04/19/24 05:41 04/20/24 05:11 Labs: Laboratory Results - last 24 hr 04/19/24 04/19/24 04/20/24 16:08 20:28 05:11 Hold Purple Top SEE NOTE Estim Creat Clear Calc 141.1 Estimated GFR > 60 POC Glucose 265 H 229 H Random Vancomycin 04/20/24 04/20/24 04/20/24 07:19 10:05 11:18 Hold Purple Top Estim Creat Clear Calc Estimated GFR POC Glucose 121 H 175 H Random Vancomycin 14.3 L Microbiology Microbiology Results: Microbiology 04/17/24 08:15 Gram Stain - Final Foot - Abscess Routine Culture - Final Citrobacter koseri Viridans streptococcus group Anaerobic Culture - Preliminary Culture in progress. Procedures Date of Service Date of Service: 04/21/24 Progress Note: A&P Assessment and plan (1) Foot abscess: Status: Acute Plan Continue local wound care. We will takedown dressing and inspect wound tomorrow. All questions answered. Time Spent With Patient Time: Total time managing care of this patient today ____ minutes. Quality Stroke Does the patient have a stroke diagnosis?: No VTE Prior VTE?: No VTE Risk Level:: Medical - moderate - high VTE Device Contraindication: Treatment Not Indicated VTE Drug Contraindication: N/A - Med Ordered
[2024-04-20 16:24] LABS: Glucose, Whole Blood 178 mg/dL (60-115)
[2024-04-20 20:00] VITALS: BP 175/81; PULSE 62; RESP 16; TEMP 36.2; O2SAT 97
[2024-04-20 21:06] LABS: Glucose, Whole Blood 198 mg/dL (60-115)
[2024-04-20] MEDS: Docusate Sodium 100 MG CAPSULE PO (21:09)
[2024-04-20] MEDS: Insulin Glargine,Hum.rec.anlog 100 UNIT/ML 10 ML VIAL 30 UNIT SUBCUT (21:09)
[2024-04-20 23:34] VITALS: BP 128/68; PULSE 69; RESP 16; TEMP 36.6; O2SAT 96
[2024-04-21 03:31] VITALS: BP 160/87; PULSE 71; RESP 16; TEMP 36.7; O2SAT 96
[2024-04-21 07:35] VITALS: BP 187/83; PULSE 73; RESP 16; TEMP 36.4; O2SAT 96
[2024-04-21 07:44] LABS: Glucose, Whole Blood 125 mg/dL (60-115)
[2024-04-21] MEDS: Enoxaparin Sodium 40 MG/0.4 ML SYRINGE SUBCUT (08:40)
[2024-04-21] MEDS: Insulin Lispro 100 UNIT/ML 3 ML VIAL SUBCUT ×2 (08:40→11:49)
[2024-04-21] MEDS: Cholecalciferol (Vitamin D3) 25 MCG TABLET PO (08:40)
--- NOTE | 2024-04-21 10:18 | MHC.CM.PN ---
Per MD rounds patient medically cleared for dc home w/ new [facility] for SN/wound care. Will need daily wound care x6 wks. Patient/son aware [facility] cannot provide daily dressing changes. Son will come to [facility] @ 12pm for teach w/ RN and to transport patient home.
--- NOTE | 2024-04-21 10:30 | PM.PNGS ---
Subjective Subjective Date of Service: 04/21/24 Interval history: Uneventful evening. Sugars still need to be controlled Physical Exam Vital Signs: Vital Signs: Last Vital Signs Temp 97.5 F 04/21/24 07:35 Pulse 73 04/21/24 07:35 Resp 16 04/21/24 07:35 BP 187/83 H 04/21/24 07:35 Pulse Ox 96 04/21/24 07:35 O2 Del Method Room Air 04/21/24 07:35 O2 Flow Rate 2 04/17/24 23:09 BMI result Body Mass Index 32.5 Extrem: Other: Dressing taken down and wound evaluated; wound granulating well. No evidence of purulence. Objective Data Active Medications Acetaminophen (Acetaminophen 325 Mg Tablet) 975 mg PO Q6H PRN PRN Reason: Pain, Mild (Pain Scale 1-3), fever or headache Last Admin: 04/17/24 02:01 Dose: 975 mg Documented By: GUILLERMINA Albuterol Sulfate (Albuterol Sulfate 90 Mcg 8 Gm Inhaler) 2 puff INHALE Q6H PRN PRN Reason: shortness of breath or wheezing Albuterol Sulfate (Albuterol Sulfate (0.083%) 2.5 Mg/3 Ml Vial.Neb) 2.5 mg INHALE Q4H PRN PRN Reason: Shortness of Breath/Wheezing Ceftriaxone Sodium (Ceftriaxone Sodium 2 Gm Vial) 2 gm IVPUSH Q24H [facility] Last Admin: 04/20/24 12:58 Dose: 2 gm Documented By: MEKHI Docusate Sodium (Docusate Sodium 100 Mg Capsule) 100 mg PO BEDTIME [facility] Last Admin: 04/20/24 21:09 Dose: 100 mg Documented By: AFIA Enoxaparin Sodium (Enoxaparin Sodium 40 Mg/0.4 Ml Syringe) 40 mg SUBCUT Q24H [facility] Last Admin: 04/21/24 08:40 Dose: 40 mg Documented By: MEKHI Glucose (Glucose Gel 15 Gm Gel..Gram.) 15 gm PO Q15M PRN; Protocol PRN Reason: per Hypoglycemia Standing Ord. Dextrose (D10) 250 mls @ 750 mls/hr IV Q15M PRN; Protocol PRN Reason: per Hypoglycemia Standing Ord. Insulin Glargine (Insulin Glargine,Hum.Rec.Anlog 100 Unit/Ml 10 Ml Vial) 30 unit SUBCUT BEDTIME [facility] Last Admin: 04/20/24 21:09 Dose: 30 unit Documented By: AFIA Insulin Human Lispro (Insulin Lispro 100 Unit/Ml 3 Ml Vial) 0 unit SUBCUT QIDACHS [facility]; Protocol Last Admin: 04/21/24 08:40 Dose: 2 unit Documented By: MEKHI Lisinopril (Lisinopril 5 Mg Tablet) 5 mg PO DAILY [facility]; Protocol Last Admin: 04/21/24 09:21 Dose: Not Given Documented By: MEKHI Non-Admin Reason: Patient Refused Oxycodone HCl (Oxycodone Hcl Immed Release 5 Mg Tablet) 5 mg PO Q6H PRN PRN Reason: Pain, Moderate(Pain Scale 4-6) Last Admin: 04/17/24 02:01 Dose: 5 mg Documented By: GUILLERMINA Polyethylene Glycol (Polyethylene Glycol 3350 17 Gm Powd.Pack) 17 gm PO DAILY PRN PRN Reason: Constipation Last Admin: 04/18/24 15:06 Dose: 17 gm Documented By: JAYCE Comments: patient requested for constipation Sodium Chloride (0.9 % Sodium Chloride Flush 3 Ml Syringe) 3 ml IVFLUSH QSHIFT [facility] Last Admin: 04/21/24 08:42 Dose: Not Given Documented By: MEKHI Non-Admin Reason: Previously Administered Vitamin D (Cholecalciferol (Vitamin D3) 25 Mcg Tablet) 25 mcg PO DAILY [facility] Last Admin: 04/21/24 08:40 Dose: 25 mcg Documented By: MEKHI Labs 04/19/24 05:41 04/20/24 05:11 Labs: Laboratory Results - last 24 hr 04/20/24 04/20/24 04/20/24 10:05 11:18 16:21 POC Glucose 175 H 178 H Random Vancomycin 14.3 L 04/20/24 04/21/24 20:35 07:39 POC Glucose 198 H 125 H Random Vancomycin Microbiology Microbiology Results: Microbiology 04/17/24 08:15 Gram Stain - Final Foot - Abscess Routine Culture - Final Citrobacter koseri Viridans streptococcus group Anaerobic Culture - Final Anaerobic gram positive cocci Procedures Date of Service Date of Service: 04/21/24 Progress Note: A&P Assessment and plan (1) Foot abscess: Status: Acute Plan Continue local wound care regarding right foot wound. Patient may shower. Elevate extremity when sedentary. Encourage incentive spirometry Time Spent With Patient Time: Total time managing care of this patient today ____ minutes. Quality Stroke Does the patient have a stroke diagnosis?: No VTE Prior VTE?: No VTE Risk Level:: Medical - moderate - high VTE Device Contraindication: Treatment Not Indicated VTE Drug Contraindication: N/A - Med Ordered
[2024-04-21 11:33] LABS: Glucose, Whole Blood 206 mg/dL (60-115)
--- NOTE | 2024-04-21 12:02 | P.F2F_ITS ---
Service Date Service Date: 04/21/24 Encounter Date of encounter: 04/21/24 Reasons for Services Signs and symptoms assessed: Right foot infection/osteomyelitis on IV antibiotics/diabetes mellitus Reason for senior care: wound care, diabetic teaching and medication management Homebound: Leaving the home is medically contraindicated at this time without the asist of a device and/or another person due th the listed conditions above and below. Reason homebound: pain with ambulation Certification: Based on the above findings, I certify that this patient is confined to the home and needs intermittent senior care care, physical therapy and/or speech therapy, or continues to need occupational therapy. The patient is under my care, and I have initiated the establishment of the plan of care. The patient will be followed by a physician who will periodically review the plan of care. Time Spent With Patient Time: Total time managing care of this patient today ____ minutes.
--- NOTE | 2024-04-21 12:03 | P.DS_ITS ---
DS: Providers Provider Date of Service: 04/21/24 Date of admission: 04/15/24 23:26 Primary care physician: Nicho Saravia PA-C Consults: 04/15/24 23:54 Consult to General Surgery Routine Consulting Provider: [facility] Reason for consultation: Right foot osteomyelitis,? Abscess Has provider been notified: No 04/17/24 15:03 Consult to Infectious Diseases Routine Consulting Provider: [facility] Reason for consultation: osteo Has provider been notified: No DS: Diagnosis Discharge Diagnosis (1) Foot abscess: Status: Acute DS: Summary Hospital Course Hospital Course: History of presenting illness: Date of Service: 04/15/24 Attending physician on admission: Yoni Valerio Chief Complaint: Right foot swelling Neville Pinedo is a 48 years old man with past medical history significant for type 2 diabetes mellitus on insulin, hypertension and hyperlipidemia presents to the emergency department complaining of right foot swelling redness and spontaneous drainage of purulent discharge from chronic diabetic ulcer. He also reported suggestive fever and generalized malaise. He also reported some shortness on breath and cough. He he has not been using his Lantus because his doctor change to another diabetes medication. He did not report any acute gastrointestinal genitourinary symptoms. He denied tobacco smoking, alcohol abuse or illicit drug use. In the ED, he was found to have fever of 101.9, tachycardia and low blood pressure. There is no leukocytosis. Hemoglobin is 11.8 and platelets 374. Glucose 374 and lactic acid 3.4. CRP is 33.51. Beta hydroxybutyrate is 0.59. Right foot x-ray showed marked soft tissue swelling with loss of cortex of the proximal 5th metatarsal suggesting osteomyelitis. ED tx: Zosyn 3.375 g IV, vancomycin 2 g IV, NS 3 L bolus Hospital course: 48 years old man with past medical history significant for type 2 diabetes mellitus on insulin, hypertension and hyperlipidemia with worsening foot wound found to have foot abscess and osteomyelitis with sepsis Admitted with sepsis secondary to right foot cellulitis/abscess/acute osteomyelitis of the 5th metatarsal , related to underlying uncontrolled diabetes, admitted to medical floor treated with IV fluids and IV vancomycin and Zosyn blood culture grew Citrobacter Koseri, underwent incision and drainage and debridement of complex right mid foot deep abscess, require daily dressing changes patient evaluated by Infectious Disease she recommended Levaquin 750 daily for 6 weeks patient has been strongly advised to follow diabetic diet and strict blood sugar control recommend outpatient follow-up with PCP and General surgery. During course of hospitalization patient complain of shortness of breath cxr showed ?pneumonia, but no cough and respiratory symptoms resolved, treated with antibiotic as above troponin negative, BNP 164 echo normal oxygenation stable on room air. Uncontrolled type 2 diabetes mellitus with hba1c - 9.4 recommend to continue Lantus insulin sliding scale and diabetic diet. Essential hypertension. Strongly recommend to take antihypertensives and follow-up closely with PCP normocytic anemia likely due to acute illness , no evidence of acute blood loss noted Time Attestation Discharge Coordination Time (in mins): 40 Quality: Safe Use of Opioids Does Pt have an Active Cancer Diagnosis on the Problem List?: No Quality: Stroke Does the patient have a stroke diagnosis?: No Physical Exam Vital Signs: Vital Signs: Last Vital Signs Temp 97.5 F 04/21/24 07:35 Pulse 73 04/21/24 07:35 Resp 16 04/21/24 07:35 BP 187/83 H 04/21/24 07:35 Pulse Ox 96 04/21/24 07:35 O2 Del Method Room Air 04/21/24 07:35 O2 Flow Rate 2 04/17/24 23:09 BMI result Body Mass Index 32.5 Const: Other: General resting comfortably in no acute distress. Anicteric sclera Neck no JVD. CVS regular rate rhythm, Respiratory lungs clear to auscultation, no respiratory distress, no wheeze, no rhonchi. Gastrointestinal abdomen soft, non tender, bowel sounds audible, no guarding , no rigidity. Extremities left leg no edema. Right foot swelling, open wound lateral plantar surface no surrounding fluctuation, no erythema, serosanguineous drainage on old dressing Neuro non focal Psych appropriate affect DS: Data Data Completed and Pending Labs on day of discharge: Laboratory Results - last 24 hr 04/20/24 04/20/24 04/21/24 16:21 20:35 07:39 POC Glucose 178 H 198 H 125 H 04/21/24 11:29 POC Glucose 206 H Discharge Plan Discharge Anticipated Discharge Date/Time: 04/21/24 10:37 Patient Disposition: Home Health Service Discharge Diagnosis: Right foot abscess/osteomyelitis Bacteremia Referrals: Nicho Saravia PA-C [Primary Care Provider] - 1 Week Frank Mcarthur MD [Physician] - 1 Week Discharge Medications: New oxycodone 5 mg Tablet 5 mg PO Q6H PRN (Reason: Pain, Moderate(Pain Scale 4-6)) Qty: 20 0RF Rx Instructions: Partial Fill upon patient request. insulin lispro [Admelog U-100 Insulin lispro] 100 unit/mL Solution See Protocol subcut QIDACHS Qty: 10 0RF Protocol: Insulin Resistant 1st 24 hours Less than or equal to 110 ---- Give (units): 0 111 to 150 Give (units): 2 151 to 200 Give (units): 4 201 to 250 Give (units): 6 251 to 300 Give (units): 8 301 to 350 Give (units): 10 Greater than 350 Give (units): 12 Call if Blood Glucose > : 350 lisinopril 5 mg Tablet 5 mg PO DAILY Qty: 30 0RF Protocol: Hold for SBP< HOLD for SBP < : 90 levofloxacin 750 mg tablet 750 mg PO DAILY Qty: 42 0RF Continued (DME) lancets [FreeStyle Lancets] 28 gauge misc See Rx Instructions .MEDSUPPLY Qty: 100 3RF Rx Instructions: As directed albuterol sulfate [Ventolin HFA] 90 mcg/actuation HFA aerosol inhaler 2 puff inhalation Q6H PRN (Reason: shortness of breath or wheezing) Qty: 8.5 0RF (DME) FreeStyle Lite Strips Strip See Rx Instructions .Route Qty: 100 2RF Rx Instructions: Test once DAILY (DME) pen needle, diabetic [BD Ultra-Fine [place] Pen Needle] 32 gauge x 5/32 needle See Rx Instructions .ROUTE .MEDSUPPLY Qty: 50 4RF Rx Instructions: As directed (DME) blood pressure test kit-medium Kit See Rx Instructions miscellaneous .MEDSUPPLY Qty: 1 0RF Rx Instructions: As directed (DME) blood-glucose meter [FreeStyle Lite Meter] Kit See Rx Instructions .Route Qty: 1 0RF Rx Instructions: As directed glucose [Dex4 Glucose] 4 gram tablet,chewable 16 g PO Q15M PRN (Reason: hypoglycemia) Qty: 60 1RF Rx Instructions: until symptoms of low blood sugar are controlled (DME) FreeStyle [place] 3 [place] Misc See Rx Instructions .Route Qty: 1 0RF Rx Instructions: As directed (DME) FreeStyle [place] 3 Sensor Device See Rx Instructions .Route Qty: 6 3RF Rx Instructions: Apply new sensor every 14 days Changed insulin glargine 100 unit/mL (3 mL) insulin pen, sensor 30 unit subcut BEDTIME 30 Days Qty: 18 5RF Discontinued ibuprofen 800 mg tablet 800 mg PO TID PRN (Reason: Fever Or Pain) No Action cholecalciferol (vitamin D3) 25 mcg (1,000 unit) capsule 25 mcg PO DAILY Qty: 30 3RF Discharge Orders: Discharge Order (Routine); Ordered 04/21/24 Ordered By: Haley Garcia Diet: Advance to usual diet Activity on Discharge: As tolerated Stand Alone Forms: Patient Portal Discharge page Print Language: Tajik Care Plan Goals: Take Levaquin 1 tablet daily for 6 weeks Take oxycodone as needed for pain control Need good blood sugar control Right foot dressings: Use saline soaked packing to cavity followed by fluffs, ABD dressing and Kerlix wrap change daily and as needed Health Concerns: Diabetes mellitus take Lantus insulin at bedtime and continue insulin sliding scale before meals Plan of Treatment: Outpatient follow-up with primary care physician call for appointment Check follow-up BMP/CBC in 7-10 days Assessment: As above Discharge Date/Time: 04/21/24 12:52
[2024-04-21] MEDS: levoFLOXacin 750 MG TABLET PO (12:20)
== END 2024-04-21 12:52 | disposition home health service (06) | DRG 710 ==
LOC: HO.ED 20:49 → HO.EDOVER 23:52 → HO.S3 04-17 09:20
PROVIDERS: Physician Assistant; Physician Assistant Medical; Surgery; Admitting Provider Internal Medicine; Emergency Provider Internal Medicine; PCP Physician Assistant; Visit Provider Hospitalist
PROC: 0J9Q0ZZ Drainage of Right Foot Subcutaneous Tissue and Fascia, Open Approach (ICD-10-PCS; principal; 2024-04-17 07:30)
DX: A41.9 Sepsis, unspecified organism (principal); J18.9 Pneumonia, unspecified organism; L03.115 Cellulitis of right lower limb; E11.42 Type 2 diabetes mellitus with diabetic polyneuropathy; M86.171 Other acute osteomyelitis, right ankle and foot; E87.1 Hypo-osmolality and hyponatremia; E11.628 Type 2 diabetes mellitus with other skin complications; L97.412 Non-pressure chronic ulcer of right heel and midfoot with fat layer exposed; D64.9 Anemia, unspecified; L02.611 Cutaneous abscess of right foot; E11.69 Type 2 diabetes mellitus with other specified complication; I10 Essential (primary) hypertension; E78.5 Hyperlipidemia, unspecified; B96.89 Other specified bacterial agents as the cause of diseases classified elsewhere; E11.65 Type 2 diabetes mellitus with hyperglycemia; Z79.4 Long term (current) use of insulin; Z79.899 Other long term (current) drug therapy
CPT/HCPCS: 36415; 71045; 73630; 73720; 80048; 80076; 80202; 82010; 82565; 82803; 82947; 83036; 83605; 83735; 83880; 84484; 85014; 85018; 85025; 85027; 85652; 86140; 87040; 87070; 87073; 87077; 87186; 87205; 93005; 93306; 99285; A9585; J0696; J1100; J1650; J1940; J2003; J2250; J2405; J2543; J2704; J2795; J3010; J3370; J3371; J7120; Q9957

== ENCOUNTER 2024-04-15 23:26 | Outpatient (BNV) | payer OTHER, SELFPAY | END 2024-04-16 15:00 | PROVIDERS: Admitting Provider Internal Medicine; Emergency Provider Internal Medicine; PCP Physician Assistant; Visit Provider Internal Medicine Cardiovascular Disease | DX: R07.9 Chest pain, unspecified (principal) | CPT/HCPCS: 93010 ==

== ENCOUNTER 2024-04-15 23:26 | Outpatient (BNV) | payer OTHER, SELFPAY | END 2024-04-16 13:35 | PROVIDERS: Admitting Provider Internal Medicine; Emergency Provider Internal Medicine; PCP Physician Assistant; Visit Provider Radiology Diagnostic Radiology | DX: R06.02 Shortness of breath (principal); R91.8 Other nonspecific abnormal finding of lung field | CPT/HCPCS: 71045 ==

== ENCOUNTER → 2024-04-15 23:26 | Outpatient (BNV) | payer OTHER, SELFPAY | PROVIDERS: Admitting Provider Internal Medicine; Emergency Provider Internal Medicine; PCP Physician Assistant; Visit Provider Surgery | DX: L02.611 Cutaneous abscess of right foot (principal); M86.9 Osteomyelitis, unspecified | CPT/HCPCS: 10061; 99223 ==

== ENCOUNTER → 2024-04-15 23:26 | Outpatient (BNV) | payer OTHER, SELFPAY | PROVIDERS: Admitting Provider Internal Medicine; Emergency Provider Internal Medicine; PCP Physician Assistant; Visit Provider Internal Medicine | DX: L02.619 Cutaneous abscess of unspecified foot (principal); M86.9 Osteomyelitis, unspecified; E11.65 Type 2 diabetes mellitus with hyperglycemia; A41.9 Sepsis, unspecified organism; I10 Essential (primary) hypertension | CPT/HCPCS: 99222 ==

== ENCOUNTER → 2024-04-15 23:26 | Outpatient (BNV) | payer OTHER, SELFPAY | PROVIDERS: Admitting Provider Internal Medicine; Emergency Provider Internal Medicine; PCP Physician Assistant; Visit Provider Internal Medicine | DX: A41.9 Sepsis, unspecified organism (principal); M86.9 Osteomyelitis, unspecified; E11.65 Type 2 diabetes mellitus with hyperglycemia; E11.621 Type 2 diabetes mellitus with foot ulcer | CPT/HCPCS: 99223; 99232; 99233; 99239 ==

== ENCOUNTER 2024-04-23 12:49 | Outpatient (AMB) | payer OTHER, SELFPAY ==
[2024-04-23 13:02] VITALS: BP 138/70; PULSE 88; O2SAT 98; BMI 32.9
--- NOTE | 2024-04-23 13:02 | A.OFFPC_ITS ---
Vital Signs 3 04/23/24 13:02 Height 6 ft 1 in Weight 249 lb 5.485 oz BMI 32.9 BP 138/70 Blood Pressure Location Lt brachial Position Sitting Pulse 88 Pulse Source Pulse Oximeter Pulse Oximetry (%) 98 Oxygen Delivery Method Room Air Intake Visit Reasons: diabetic ulcer/abscess and osteomyelitis Furnace Tender Required: No Accompanied by: Son Allergies empagliflozin [From Jardiance] Adverse Reaction (Intermediate, Verified 04/23/24 13:09) GI upset Medication List - Last Reconciled 04/23/24 by Nicho Saravia PA-C albuterol sulfate 90 mcg/actuation (Ventolin HFA) 2 puffs inhalation Q6H PRN blood pressure test kit-medium As directed blood sugar diagnostic (FreeStyle Lite Strips) Test once DAILY blood-glucose meter (FreeStyle Lite Meter kit) As directed blood-glucose meter,continuous (FreeStyle Clovis 3 [place]) As directed blood-glucose sensor (FreeStyle Clovis 3 Sensor device) Apply new sensor every 14 days cholecalciferol (vitamin D3) 25 mcg PO DAILY glucose (Dex4 Glucose) 16 grams (4 x 4 gram) PO Q15M PRN insulin glargine 30 units (0.3 mL) subcut BEDTIME 30 days insulin lispro (Admelog U-100 Insulin lispro) See Protocol units subcut QIDACHS lancets (FreeStyle Lancets) As directed levofloxacin 750 mg PO DAILY lisinopril 5 mg See Protocol PO DAILY oxycodone 5 mg PO Q6H PRN pen needle, diabetic (BD Ultra-Fine [place] Pen Needle) As directed Tobacco use date assessed: 11/18/23 Dental Screening Dental Screen Date: 11/18/23 HPI diabetic ulcer/abscess and osteomyelitis 2 HPI0 Details Patient recently admitted to [facility] for worsening right foot pain due to his diabetic foot ulcer. He was found to have acute osteomyelitis of the 5th metatarsal related to his uncontrolled type 2 diabetes. He was treated with IV fluids, vancomycin and Zosyn. He did undergo incision and drainage and debridement of the complex right midfoot deep abscess which requires daily dressing changes. He was re-evaluated by Infectious Disease whom recommended Levaquin 750 mg daily for 6 weeks. Now has VNA services coming several times a week to do wound care dressings Patient would like to set up with outpatient Wound care specialty to do debriding. Now has a son helping him with his activities of daily living . He will be applying for SSI/disability. [facility] Medical History Foot abscess Vitamin D deficiency Left rotator cuff tear Metatarsal fracture Hyperlipidemia LDL goal <100 Pilonidal cyst Type 2 diabetes mellitus with diabetic neuropathy, unspecified Obesity due to excess calories Type 2 diabetes mellitus with hyperglycemia, with long-term current use of insulin Type 2 diabetes mellitus with diabetic polyneuropathy Surgical History History of drainage of abscess Family History Father No problems noted. Mother No problems noted. Paternal Grandfather Colon cancer Social History Household Members: Children Housing: Apartment Do you presently have visiting nurse or other home services: No Alcohol intake: never Patient Tobacco Use Status: Never used Tobacco e-Cigarette/Vaping Use: Never Used Second Hand Smoke Exposure: No service: No Current occupational status: employed Cognitive needs: No Hearing needs: No Vision needs: No Questionnaire Thrive Questionnaire Date Thrive assessed: 04/16/24 JUNI-7 AMB Questionnaire JUNI-7 Date JUNI - 7 assessed: 11/18/23 Source: Developed by Drs. Bill Shepard, Shannan Hannah, Barry Krishnamurthy and colleagues, with an educational [place] from [employer]. Review of Systems Const Denies headache(s) Eyes Denies loss of vision ENT Denies vertigo, Denies dizziness, Denies headache(s) and Denies sore throat Card Denies chest pain, Denies leg edema and Denies lightheadedness Resp Denies cough, Denies hemoptysis and Denies wheezing GI Denies abdominal pain, Denies melena, Denies constipation, Denies diarrhea and Denies vomiting Denies dysuria, Denies urinary frequency and Denies urinary urgency Musc Denies arthralgias, Denies joint swelling, Denies numbness and Denies tingling Neuro Denies Abnormal speech present, Denies behavioral changes, Denies vertigo, Denies dizziness, Denies headache(s), Denies loss of vision, Denies memory loss, Denies numbness and Denies tingling Psych Denies anxiety, Denies behavioral changes, Denies depression, Denies memory loss and Denies panic attacks Derik/Lymph Denies easy bleeding and Denies easy bruising Aller/Immun Denies wheezing Physical exam (Primary Care) Vital Signs: Last Vital Signs Pulse 88 04/23/24 13:02 BP 138/70 04/23/24 13:02 Pulse Ox 98 04/23/24 13:02 Oxygen Delivery Method Room Air 04/23/24 13:02 BMI result Body Mass Index 32.9 Tobacco/Smoking Status: Tobacco use Status Tobacco use date assessed 11/18/23 04/23/24 13:06 Patient Tobacco Use Status Never used Tobacco 04/23/24 13:06 e-Cigarette/Vaping Use Never Used 04/23/24 13:06 Thrive Assessment: Date of Thrive Assessment Date Thrive assessed 04/16/24 04/23/24 13:06 Const General: healthy appearing, no acute distress, alert and awake Nutritional Appearance: well nourished Orientation/consciousness: oriented to person, oriented to place and oriented to time HENMT Ears: TM's normal bilaterally General nose exam: Normal nasal mucous membranes and turbinates present Eyes Conjunctivae: conjunctivae normal Sclerae: sclerae normal Pupils: Equal, round and reactive pupils present Neck Neck: Yes no lymphadenopathy and Yes no JVD Thyroid: Thyroid normal Carotids: no bruits Resp Effort & Inspection: normal respiratory effort and not tachypneic Auscultation: no crackles, no rales, no rhonchi and no wheezes Cardio Rate: regular rate Rhythm: regular rhythm Heart sounds: no murmurs and normal S1 and S2 GI Palpation (GI): Soft to palpation, nontender, no hepatomegaly and no splenomegaly Auscultation: normal bowel sounds Skin General skin exam: no rashes or lesions noted and dry skin Neuro General: oriented to person, oriented to place and oriented to time Cranial nerves: Yes Equal, round and reactive pupils present Speech: No Abnormal speech present Gait exam (Neuro): Normal gait present Motor exam (neuro): no tremor noted Extrem Other: Right upper extremity: full ROM Left upper extremity: full ROM Right lower extremity: full ROM; no edema Left lower extremity: full ROM; no edema Psych Mental Status: mental status grossly normal Speech and movement: Normal speech and movement present Affect: normal affect Attitude: cooperative Thought process: Normal thought process present Coding Level of Care Code Est Pt Level 4 (97634) Diagnoses Hospital discharge follow-up Z09 Foot abscess L02.619 Chronic multifocal osteomyelitis of right foot M86.371 Osteomyelitis type: chronic multifocal Osteomyelitis location: foot Laterality: right Primary hypertension I10 Hypertension type: primary hypertension Uncontrolled type 2 diabetes mellitus with hyperglycemia E11.65 Diabetes mellitus type: type 2 Assessment & Plan Assessment & Plan (1) Hospital discharge follow-up: Code(s): Z09 - Encounter for follow-up examination after completed treatment for conditions other than malignant neoplasm Category: Medical Plan: As per HPI (2) Foot abscess: Code(s): L02.619 - Cutaneous abscess of unspecified foot Category: Medical Plan: Patient underwent incision and drainage of large abscess in his right foot. Please see picture section in physical exam. Now has home care nurse doing wound management getting help from his son as well. (3) Osteomyelitis: Code(s): M86.9 - Osteomyelitis, unspecified Category: Medical Qualifiers: Osteomyelitis type: chronic multifocal Osteomyelitis location: foot L aterality: right Qualified Code(s): M86.371 - Chronic multifocal osteomyelitis, right ankle and foot Plan: Continues on levofloxacin for the next 6 weeks in hopes that his osteomyelitis does clear. He will try to get glycemic control by being more compliant with his short-acting and long-acting insulins. (4) HTN (hypertension): Code(s): I10 - Essential (primary) hypertension Category: Medical Qualifiers: Hypertension type: primary hypertension Qualified Code(s): I10 - Essential (primary) hypertension Plan: Patient's blood pressure acceptable today in office. Advised to continue lisinopril 5 mg for renal protection against diabetes. Goal blood pressures to remain below 140/90 (5) Uncontrolled diabetes mellitus with hyperglycemia: Code(s): E11.65 - Type 2 diabetes mellitus with hyperglycemia Category: Medical Qualifiers: Diabetes mellitus type: type 2 Qualified Code(s): E11.65 - Type 2 diabetes mellitus with hyperglycemia Plan: Patient has suboptimal control of his type 2 diabetes. He now is somewhat motivated to control his diabetes. Will continue his long-acting insulin 30 units daily and via sliding scale of short-acting insulin. He has not been able to get a glucose monitor thus will be using point of care fingersticks for now. He is not interested in seeing endocrinology Orders: Orders 2 Complete Blood Count no Diff Today M86.9 - Osteomyelitis, unspecified Comprehensive Met. Panel Today M86.9 - Osteomyelitis, unspecified Referrals 2 General Surgery Referral L02.619 - Cutaneous abscess of unspecified foot, M86.9 - Osteomyelitis, unspecified Wound Care Referral L02.619 - Cutaneous abscess of unspecified foot Infectious Disease Referral M86.9 - Osteomyelitis, unspecified Medications: New 2 insulin lispro Max dose 10 units preprandial 1 sliding scale dose subcut USEASDIRECTD 30 days 15 mL 3RF E11.65 - Type 2 diabetes mellitus with hyperglycemia Changed 2 From lisinopril 5 mg See Protocol PO DAILY 30 tabs 0RF E11.65 - Type 2 diabetes mellitus with hyperglycemia To lisinopril 5 mg See Protocol PO DAILY 90 days 90 tabs 1RF E11.65 - Type 2 diabetes mellitus with hyperglycemia Refilled 2 blood-glucose meter,continuous (FreeStyle Clovis 3 [place]) As directed 1 ea 0RF E11.42 - Type 2 diabetes mellitus with diabetic polyneuropathy, Z79.4 - [facility] (current) use of insulin blood sugar diagnostic (FreeStyle Lite Strips) Test once DAILY 100 ea 2RF E11.65 - Type 2 diabetes mellitus with hyperglycemia, Z79.4 - [facility] (current) use of insulin blood-glucose sensor (FreeStyle Clovis 3 Sensor device) Apply new sensor every 14 days 6 ea 3RF E11.42 - Type 2 diabetes mellitus with diabetic polyneuropathy, 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
== END 2024-04-23 13:47 | disposition home or self-care (01) ==
PROVIDERS: PCP Physician Assistant; Visit Provider Physician Assistant
DX: E11.65 Type 2 diabetes mellitus with hyperglycemia (principal); M86.371 Chronic multifocal osteomyelitis, right ankle and foot; Z09 Encounter for follow-up examination after completed treatment for conditions other than malignant neoplasm; L02.619 Cutaneous abscess of unspecified foot; I10 Essential (primary) hypertension

== ENCOUNTER → 2024-04-23 12:49 | Outpatient (BNVA) | payer OTHER, SELFPAY | PROVIDERS: PCP Physician Assistant; Visit Provider Physician Assistant | DX: Z09 Encounter for follow-up examination after completed treatment for conditions other than malignant neoplasm (principal); L02.611 Cutaneous abscess of right foot; M86.371 Chronic multifocal osteomyelitis, right ankle and foot; I10 Essential (primary) hypertension; E11.65 Type 2 diabetes mellitus with hyperglycemia | CPT/HCPCS: 99212 ==

== ENCOUNTER 2024-05-02 09:57 | Outpatient (REF) | payer OTHER, SELFPAY ==
[2024-05-02 10:57] LABS: Hematocrit 38.6 % (42.0-52.0); Hemoglobin 12.3 g/dl (14.0-18.0); Mean Corpuscular HGB Conc 31.9 g/dl (31.0-36.0); Mean Corpuscular Hemoglobin 25.7 pg (27.0-33.0); Mean Corpuscular Volume 80.8 fL (80.0-98.0); Mean Platelet Volume 10.7 fL (9.4-12.4); Platelet Count 391 X10*3/uL (160-400); Red Blood Count 4.78 X10*6/uL (4.60-5.80); White Blood Count 7.5 X10*3/uL (4.8-10.8)
[2024-05-02 11:28] LABS: Alanine Aminotransferase 26 U/L (0-40); Albumin Level 3.7 g/dL (3.5-5.0); Alkaline Phosphatase 111 U/L (39-117); Anion Gap 11 (12-20); Aspartate Amino Transferase 17 U/L (5-37); Bilirubin Total 0.3 mg/dL (0.0-1.0); Blood Urea Nitrogen 18 mg/dL (9-16); Calcium 9.6 mg/dL (8.4-10.2); Carbon Dioxide 27 mmol/L (22-29); Chloride 104 mmol/L (96-108); Cholesterol 156 mg/dL (<200); Estimated Glomerular Filt Rate > 60; Glucose Random 223 mg/dL (60-115); HDL Cholesterol 45 mg/dL (>40); LDL Cholesterol Calculated 78 mg/dL (<100); Potassium 4.9 mmol/L (3.3-5.1); Sodium 137 mmol/L (135-145); Total Protein 7.8 g/dL (6.5-8.0); Triglycerides 169 mg/dL (<150)
== END 2024-05-02 09:58 | disposition home or self-care (01) ==
LOC: HO.LAB 09:57
PROVIDERS: PCP Physician Assistant; Visit Provider Physician Assistant
DX: E78.5 Hyperlipidemia, unspecified (principal); M86.9 Osteomyelitis, unspecified
CPT/HCPCS: 36415; 80053; 80061; 85027

== ENCOUNTER 2024-05-04 13:06 | Outpatient (AMB) | payer OTHER, SELFPAY ==
[2024-05-04 13:08] VITALS: PULSE 98; TEMP 37.1; O2SAT 96; BMI 32.5
--- NOTE | 2024-05-04 13:08 | MHC.OFFVIS ---
Vital Signs 05/04/24 13:08 Height 6 ft 1 in Weight 246 lb BMI 32.5 Pulse 98 Temp 98.7 F Temp Source Oral Pulse Oximetry (%) 96 Oxygen Delivery Method Room Air Intake Visit Reasons: [facility] [facility] Allergies empagliflozin [From Jardiance] Adverse Reaction (Intermediate, Verified 05/04/24 13:26) GI upset HPI HPI [facility] /osteo: Details: He has citrobacter koseri 04/15 blood x2 and some citrobacter koseri along with some strep viridans and occasional anerobe in foot. He has said foot is improving but no appt with surgery or wound care so has been dressing right foot at home. I had seen him in the hospital. [facility] Medical History Foot abscess Vitamin D deficiency Left rotator cuff tear Metatarsal fracture Hyperlipidemia LDL goal <100 Pilonidal cyst Type 2 diabetes mellitus with diabetic neuropathy, unspecified Obesity due to excess calories Type 2 diabetes mellitus with hyperglycemia, with long-term current use of insulin Type 2 diabetes mellitus with diabetic polyneuropathy Surgical History History of drainage of abscess Family History Father No problems noted. Mother No problems noted. Paternal Grandfather Colon cancer Social History Household Members: Children Housing: Apartment Do you presently have visiting nurse or other home services: No Alcohol intake: never Patient Tobacco Use Status: Never used Tobacco e-Cigarette/Vaping Use: Never Used Second Hand Smoke Exposure: No service: No Current occupational status: employed Cognitive needs: No Hearing needs: No Vision needs: No Physical Exam Vital Signs: Last Vital Signs Temp 98.7 F 05/04/24 13:08 Pulse 98 05/04/24 13:08 Pulse Ox 96 05/04/24 13:08 Oxygen Delivery Method Room Air 05/04/24 13:08 BMI result Body Mass Index 32.5 Const Other: General: cooperative Orientation/consciousness: patient oriented x3 HEENT Head: Yes normal to inspection Mouth: Normal oral and palatal mucosa present Eyes General: appearance normal, both eyes and all related structures Pupils: Equal, round and reactive pupils present Resp Effort & Inspection: normal respiratory effort Cardio Rate: regular rate Rhythm: regular rhythm GI Palpation (GI): Soft to palpation and nontender General: Yes no CVA tenderness Back/Spine/Pelvis Back: no CVA tenderness Skin General skin exam: no rashes or lesions noted Neuro General: patient oriented x3 Cranial nerves: Yes CN's II-XII intact bilaterally and Yes Equal, round and reactive pupils present Extrem Other: foot ,lateral wound granulating Psych Appearance: grossly normal Assessment & Plan Assessment & Plan (1) Osteomyelitis: Comment: He has resolved Citrobacter koseri bacteremia and wound with OM appears improved. Code(s): M86.9 - Osteomyelitis, unspecified Category: Medical Qualifiers: Laterality: right Osteomyelitis location: foot Osteomyelitis type: chronic multifocal Qualified Code(s): M86.371 - Chronic multifocal osteomyelitis, right ankle and foot Plan: Would continue po Levaquin 750 mg daily,done 06/02/2023 (he has total script). Appt made with Surgery as well as Wound Care. Will see back in one month. Coding Level of Care Code Est Pt Level 3 (83932) Diagnoses Chronic multifocal osteomyelitis of right foot M86.371 Laterality: right Osteomyelitis location: foot Osteomyelitis type: chronic multifocal
== END 2024-05-04 15:07 | disposition home or self-care (01) ==
PROVIDERS: PCP Physician Assistant; Visit Provider Internal Medicine
DX: M86.371 Chronic multifocal osteomyelitis, right ankle and foot (principal)
CPT/HCPCS: 99213

== ENCOUNTER → 2024-05-04 13:06 | Outpatient (BNVA) | payer OTHER, SELFPAY | PROVIDERS: PCP Physician Assistant; Visit Provider Internal Medicine | DX: M86.371 Chronic multifocal osteomyelitis, right ankle and foot (principal); Z79.2 Long term (current) use of antibiotics | CPT/HCPCS: 99212 ==

== ENCOUNTER 2024-05-05 13:55 | Outpatient (AMB) | payer OTHER, SELFPAY ==
--- NOTE | 2024-05-05 13:57 | A.OFFVIS_ITS ---
Vital Signs 05/05/24 14:14 Weight 249 lb BP 135/61 Blood Pressure Location Rt brachial Position Sitting Pulse 95 Intake Visit Reasons: Abscess (L) LE Intake Note: Patient referred after ED visit for Rt lateral foot ulcer. Present for since November 2023. Prescribed Levofloxacin. 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 Wound care clinic appointment on 05-11-2024. VNA services 3X wkly. Patient c/o: Oral Pathologist Required: No Accompanied by: Self / Same As Patient Allergies empagliflozin [From Jardiance] Adverse Reaction (Intermediate, Verified 05/05/24 14:13) GI upset HPI Comments Details: Patient was status post I&D and debridement of right lateral foot deep infection. Presents here for follow-up. He has no wound issues or complaints. He has been undergoing VNA services at home. [facility] Medical History Foot abscess Vitamin D deficiency Left rotator cuff tear Metatarsal fracture Hyperlipidemia LDL goal <100 Pilonidal cyst Type 2 diabetes mellitus with diabetic neuropathy, unspecified Obesity due to excess calories Type 2 diabetes mellitus with hyperglycemia, with long-term current use of insulin Type 2 diabetes mellitus with diabetic polyneuropathy Surgical History History of drainage of abscess Family History Father No problems noted. Mother No problems noted. Paternal Grandfather Colon cancer Social History Household Members: Children Housing: Apartment Do you presently have visiting nurse or other home services: No Alcohol intake: never Patient Tobacco Use Status: Never used Tobacco e-Cigarette/Vaping Use: Never Used Second Hand Smoke Exposure: No service: No Current occupational status: employed Cognitive needs: No Hearing needs: No Vision needs: No Physical Exam Vital Signs: Last Vital Signs Pulse 95 05/05/24 14:14 BP 135/61 05/05/24 14:14 Extrem Other: On exam today, wound demonstrates significant decrease in size with healthy granulating tissue. Assessment & Plan Assessment & Plan (1) Foot osteomyelitis, right: Code(s): M86.9 - Osteomyelitis, unspecified Category: Surgical Qualifiers: Osteomyelitis type: unspecified type Qualified Code(s): M86.9 - Osteomyelitis, unspecified Plan Patient was to continue local wound care. He apparently was also scheduled for wound clinic follow-up in few days. He should elevate the extremity as much as possible as well. He will see me as directed or p.r.n.. All questions answered. Coding Level of Care Code Complex EM visit Add On G2211 Diagnoses Osteomyelitis of right foot, unspecified type M86.9 Osteomyelitis type: unspecified type
[2024-05-05 14:14] VITALS: BP 135/61; PULSE 95
== END 2024-05-05 14:15 | disposition home or self-care (01) ==
PROVIDERS: PCP Physician Assistant; Visit Provider Surgery
DX: M86.9 Osteomyelitis, unspecified (principal)
CPT/HCPCS: 99024

== ENCOUNTER → 2024-05-05 13:55 | Outpatient (BNVA) | payer OTHER, SELFPAY | PROVIDERS: PCP Physician Assistant; Visit Provider Surgery | DX: M86.9 Osteomyelitis, unspecified (principal) | CPT/HCPCS: 99212 ==

== ENCOUNTER 2024-05-19 13:51 | Outpatient (AMB) | payer OTHER, SELFPAY ==
--- NOTE | 2024-05-19 13:57 | A.OFFVIS_ITS ---
Intake Visit Reasons: 2 week follow up Abscess (L) LE Intake Note: Patient here for 2wk follow up ostermyelitis rt lat foot. Seen by wound care 05-11-2024. Patient c/o:reports mild improvement since last visit. Combination Technician Required: No Accompanied by: Self / Same As Patient Allergies empagliflozin [From Jardiance] Adverse Reaction (Intermediate, Verified 05/19/24 14:01) GI upset HPI Comments Details: Patient presents for follow-up. He is also going to wound care weekly. He has no wound issues or complaints. He has seen at the wound is healing well. [facility] Medical History Foot abscess Vitamin D deficiency Left rotator cuff tear Metatarsal fracture Hyperlipidemia LDL goal <100 Pilonidal cyst Type 2 diabetes mellitus with diabetic neuropathy, unspecified Obesity due to excess calories Type 2 diabetes mellitus with hyperglycemia, with long-term current use of insulin Type 2 diabetes mellitus with diabetic polyneuropathy Surgical History History of drainage of abscess Family History Father No problems noted. Mother No problems noted. Paternal Grandfather Colon cancer Social History Household Members: Children Housing: Apartment Do you presently have visiting nurse or other home services: No Alcohol intake: never Patient Tobacco Use Status: Never used Tobacco e-Cigarette/Vaping Use: Never Used Second Hand Smoke Exposure: No service: No Current occupational status: employed Cognitive needs: No Hearing needs: No Vision needs: No Physical Exam Extrem Other: Lateral aspect right foot wound has markedly decreased in size. There is granulating tissue. Edema is much improved. Dressings re-applied. Assessment & Plan Assessment & Plan (1) Encounter for postoperative wound check: Code(s): Z48.89 - Encounter for other specified surgical aftercare Category: Surgical Plan From a surgical perspective, patient was wound is healing well. He is continue local wound care as well as wound center follow-up. He will otherwise follow-up with me p.r.n.. All questions answered Coding Level of Care Code Global (94507) Diagnoses Encounter for postoperative wound check Z48.89
== END 2024-05-19 14:26 | disposition home or self-care (01) ==
PROVIDERS: PCP Physician Assistant; Visit Provider Surgery
DX: Z48.89 Encounter for other specified surgical aftercare (principal)
CPT/HCPCS: 99024

== ENCOUNTER → 2024-05-19 13:51 | Outpatient (BNVA) | payer OTHER, SELFPAY | PROVIDERS: PCP Physician Assistant; Visit Provider Surgery | DX: Z48.89 Encounter for other specified surgical aftercare (principal) | CPT/HCPCS: 99212 ==

== ENCOUNTER 2024-06-03 13:40 | Outpatient (AMB) | payer OTHER, SELFPAY ==
--- NOTE | 2024-06-03 13:44 | A.OFFVIS_ITS ---
Vital Signs 3 06/03/24 14:14 Height 6 ft 1 in Pulse 110 H Pulse Source Pulse Oximeter Temp 98.8 F Temp Source Oral Pulse Oximetry (%) 96 Oxygen Delivery Method Room Air Intake Visit Reasons: follow up 1 month Allergies empagliflozin [From Jardiance] Adverse Reaction (Intermediate, Verified 06/04/24 12:08) GI upset HPI HPI follow up 1 month: Details: he feels well,foot improved [facility] Medical History Foot abscess Vitamin D deficiency Left rotator cuff tear Metatarsal fracture Hyperlipidemia LDL goal <100 Pilonidal cyst Type 2 diabetes mellitus with diabetic neuropathy, unspecified Obesity due to excess calories Type 2 diabetes mellitus with hyperglycemia, with long-term current use of insulin Type 2 diabetes mellitus with diabetic polyneuropathy Surgical History History of drainage of abscess Family History Father No problems noted. Mother No problems noted. Paternal Grandfather Colon cancer Social History Household Members: Children Housing: Apartment Do you presently have visiting nurse or other home services: No Alcohol intake: never Patient Tobacco Use Status: Never used Tobacco e-Cigarette/Vaping Use: Never Used Second Hand Smoke Exposure: No service: No Current occupational status: employed Cognitive needs: No Hearing needs: No Vision needs: No Physical Exam Vital Signs: Last Vital Signs Temp 98.8 F 06/03/24 14:14 Pulse 110 H 06/03/24 14:14 Pulse Ox 96 06/03/24 14:14 Oxygen Delivery Method Room Air 06/03/24 14:14 Const Other: General: cooperative Orientation/consciousness: patient oriented x3 HEENT Head: Yes normal to inspection Mouth: Normal oral and palatal mucosa present Eyes General: appearance normal, both eyes and all related structures Pupils: Equal, round and reactive pupils present Resp Effort & Inspection: normal respiratory effort Cardio Rate: regular rate Rhythm: regular rhythm GI Palpation (GI): Soft to palpation and nontender General: Yes no CVA tenderness Back/Spine/Pelvis Back: no CVA tenderness Skin General skin exam: no rashes or lesions noted Neuro General: patient oriented x3 Cranial nerves: Yes CN's II-XII intact bilaterally and Yes Equal, round and reactive pupils present Extrem General: Yes normal to inspection Psych Appearance: grossly normal Assessment & Plan Assessment & Plan (1) Osteomyelitis: Comment: He has resolved Citrobacter koseri bacteremia and wound with OM appears improved. Code(s): M86.9 - Osteomyelitis, unspecified Category: Medical Qualifiers: Laterality: right Osteomyelitis location: foot Osteomyelitis type: c hronic multifocal Qualified Code(s): M86.371 - Chronic multifocal osteomyelitis, right ankle and foot Plan: Finish antibiotics. Follow up prn need. Medications: New 2 levofloxacin 750 mg PO DAILY 7 tabs 0RF 1 week Coding Level of Care Code Est Pt Level 3 (69320) Diagnoses Chronic multifocal osteomyelitis of right foot M86.371 Laterality: right Osteomyelitis location: foot Osteomyelitis type: chronic multifocal
[2024-06-03 14:14] VITALS: PULSE 110; TEMP 37.1; O2SAT 96
--- OUTSIDE RECORDS SUMMARY | 2024-06-03 15:55 | XMS_ITS | Clinical Summary ---
Author Organization [address] [place] [address] Address [address] [place] [address] Phone Care Team Providers Care Memorial Counselor Name Role Phone Nicho Saravia Primary Care Provider Allergies No known active allergies Medications Medication Sig Dispensed Refills Start Date End Date Status atorvastatin (LIPITOR) 20 mg tablet Take 1 Tablet by mouth daily. Active cephalexin (KEFLEX) 500 mg capsule Take 1 Capsule by mouth 2 times daily. Active cholecalciferol (VITAMIN D-3) 25 mcg (1,000 unit) capsule Take 25 mcg by mouth. Active doxycycline (VIBRAMYCIN) 100 mg capsule Take 1 Capsule by mouth 2 times daily. Active dulaglutide (Trulicity) 3 mg/0.5 mL pen injector injection Inject 3 mg into the skin. Active ibuprofen (ADVIL,MOTRIN) 800 mg tablet Take 1 Tablet by mouth every 8 hours as needed. Active insulin glargine (LANTUS) 100 unit/mL injection Inject into the skin at bedtime. Active insulin glargine (LANTUS) 100 unit/mL injection Inject into the skin at bedtime. Active tirzepatide (Mounjaro) 5 mg/0.5 mL injection Inject into the skin. Active Active Problems Problem Noted Date Diagnosed Date Hyperlipidemia LDL goal <100 12/13/2023 Left rotator cuff tear 12/13/2023 Metatarsal fracture 12/13/2023 Obesity due to excess calories 12/13/2023 Pilonidal cyst 12/13/2023 Type 2 diabetes mellitus with diabetic neuropath y 12/13/2023 Vitamin D deficiency 12/13/2023 Encounters Date Type Department Care Team Description 04/20/2024 Telephone Orthopedic Surgery [facility] [address] [address] Gautam Toney DPM from Last 3 Months Social History Tobacco Use Types Packs/Day Years Used Date Smoking Tobacco: Never Assessed Sex and Gender Information Value Date Recorded Sex Assigned at Not on file Gender Identity Not on file Sexual Orientation Not on file Job Start Date Occupation Industry Not on file Not on file Not on file Last Filed Vital Signs Vital Sign Reading Time Taken Comments Blood Pressure - - Pulse - - Temperature - - Respiratory Rate - - Oxygen Saturation - - Inhaled Oxygen Concentration - - Weight 111 kg (245 lb) 02/27/2024 9:03 AM EDT Height 185.4 cm (6' 1 ) 02/27/2024 9:03 AM EDT Body Mass Index 32.32 02/27/2024 9:03 AM EDT Plan of Treatment Health Maintenance Due Date Last Done Comments Diabetes: Annual GFR (Glomer ular Filtration Rate) 1973 Pneumococcal Vaccine: Pediat rics (0 to 5 Years) and At-Risk Patients (6 to 64 Years) (1 of 2 - PCV) 1979 Diabetes: Annual Foot Exam 1983 Diabetes: Annual Retina Eye Exam 1983 DTaP,Tdap,and Td Vaccines (1 - Tdap) 1992 Hepatitis B Vaccines (1 of 3 - 19+ 3-dose series) 1992 Cholesterol Screening (Lipid Panel) 06/05/2023 Colorectal Cancer Screening: Colonoscopy 06/05/2023 Depression Screening 06/05/2023 HIV Screening 06/05/2023 Hepatitis C Screening 06/05/2023 Social Influencers of Health Screening 06/05/2023 Zoster Vaccines (1 of 2) 2023 COVID-19 Vaccine ( - 2023-2 5 season) 2024 Influenza Vaccine (#1) 2024 Diabetes: Annual Urine Albumin-Creatinine Ratio (uACR) 02/13/2024 Diabetes: Blood Sugar Contro l Test (HGBA1C) 02/13/2024 HIB Vaccines Aged Out No longer eligi ble based on patient's age to complete this topic HPV Vaccines Aged Out No longer eligi ble based on patient's age to complete this topic Hepatitis A Vaccines Aged Out No long er eligible based on patient's age to complete this topic IPV Vaccines Aged Out No longer eligi ble based on patient's age to complete this topic MMR Vaccines Aged Out No longer eligi ble based on patient's age to complete this topic Meningococcal ACWY Vaccine Aged Out N o longer eligible based on patient's age to complete this topic RSV Immunization Patients Un pooja 20 months Aged Out No longer eligible b ased on patient's age to complete this topic Varicella Vaccines Aged Out No longer eligible based on patient's age to complete this topic Care Teams Memorial Counselor Relationship Specialty Start Date End Date Nicho Saravia PA [address] [place] [phone] PCP - General 11/19/23
--- OUTSIDE RECORDS SUMMARY | 2024-06-03 15:55 | XMS_ITS | Encounter Summary ---
Author Organization [facility] Address [address] [place] [address] Care Team Providers Care Merchandise Flow Associate Name Role Phone Nicho Saravia Primary Care Provider Encounter Details Date Type Department Care Team (Late st Contact Info) Description 04/20/2024 Telephone Orthopedic Surgery - [place] [address] [address] Gautam Toney DPLele [address] [address] Social History Tobacco Use Types Packs/Day Years Used Date Smoking Tobacco: Never Assessed Sex and Gender Information Value Date Recorded Sex Assigned at Not on file Gender Identity Not on file Sexual Orientation Not on file Job Start Date Occupation Industry Not on file Not on file Not on file documented as of this encounter Progress Notes * Leigh Roth - 04/20/2024 11:40 AM EST Neville is calling requesting a call back from Deepa Neville states he had surgery by another provider and would like to discuss his situation documented in this encounter Plan of Treatment Not on file documented as of this encounter Visit Diagnoses Not on filedocumented in this encounter Care Teams Merchandise Flow Associate Relationship Specialty Start Date End Date Nicho Saravia PA [address] [place] [address] PCP - General 11/19/23 documented as of this encounter
== END 2024-06-03 14:41 | disposition home or self-care (01) ==
PROVIDERS: PCP Physician Assistant; Visit Provider Internal Medicine
DX: M86.371 Chronic multifocal osteomyelitis, right ankle and foot (principal)
CPT/HCPCS: 99213

== ENCOUNTER → 2024-06-03 13:40 | Outpatient (BNVA) | payer OTHER, SELFPAY | PROVIDERS: PCP Physician Assistant; Visit Provider Internal Medicine | DX: M86.371 Chronic multifocal osteomyelitis, right ankle and foot (principal) | CPT/HCPCS: 99212 ==

== ENCOUNTER 2024-06-04 11:26 | Outpatient (AMB) | payer OTHER, SELFPAY ==
--- NOTE | 2024-06-04 11:33 | MHC.PC.OV ---
Vital Signs 06/04/24 11:36 Height 6 ft 1 in Weight 255 lb 11.779 oz BMI 33.7 BP 130/72 Blood Pressure Location Lt brachial Position Sitting Pulse 97 Pulse Source Pulse Oximeter Temp 97.1 F Temp Source Skin Pulse Oximetry (%) 97 Oxygen Delivery Method Room Air Intake Visit Reasons: f/u DMII/ Foot ulcer - see comments Intake Note: Patient is here to follow up on DMII, foot ulcer. Conveyor Weigher Operator Required: No Vascular Nurse: Not Required per policy Accompanied by: Self / Same As Patient Allergies [email or web address] [From Lumaqco] Adverse Reaction (Intermediate, Verified 06/04/24 12:08) GI upset Medication List - Last Reconciled 06/04/24 by Estella Tate PA-C albuterol sulfate 90 mcg/actuation (Ventolin HFA) 2 puffs inhalation Q6H PRN blood sugar diagnostic (FreeStyle Lite Strips) Test once DAILY blood-glucose meter (FreeStyle Lite Meter kit) As directed blood-glucose meter,continuous (FreeStyle [place] 3 [place]) As directed blood-glucose sensor (FreeStyle Clovis 3 Sensor device) Apply new sensor every 14 days cholecalciferol (vitamin D3) 25 mcg PO DAILY glucose (Dex4 Glucose) 16 grams (4 x 4 gram) PO Q15M PRN insulin glargine 30 units (0.3 mL) subcut BEDTIME 30 days insulin lispro 1 sliding scale dose subcut TID 30 days lancets (FreeStyle Lancets) As directed levofloxacin 750 mg PO DAILY 1 week oxycodone 5 mg PO Q6H PRN pen needle, diabetic (BD Ultra-Fine Edna Pen Needle) As directed Tobacco use date assessed: 06/04/24 Dental Screening Dental Screen Date: 06/04/24 Did you have a dental visit in the last 12 months?: Yes Did you have a dental problem in the last 6 months where you did not have access to dental care?: No Was dental information given to patient?: Patient has dentist [facility] Medical History Foot abscess Vitamin D deficiency Left rotator cuff tear Metatarsal fracture Hyperlipidemia LDL goal <100 Pilonidal cyst Type 2 diabetes mellitus with diabetic neuropathy, unspecified Obesity due to excess calories Type 2 diabetes mellitus with hyperglycemia, with long-term current use of insulin Type 2 diabetes mellitus with diabetic polyneuropathy Surgical History History of drainage of abscess Family History Father No problems noted. Mother No problems noted. Paternal Grandfather Colon cancer Social History Household Members: Children Housing: Apartment Do you presently have visiting nurse or other home services: No Alcohol intake: never Patient Tobacco Use Status: Never used Tobacco e-Cigarette/Vaping Use: Never Used Second Hand Smoke Exposure: No service: No Current occupational status: employed Cognitive needs: No Hearing needs: No Vision needs: No Questionnaire PHQ-9 Over the last 2 weeks, how often have you been bothered by any of the following problems? 1. Little interest or pleasure in doing things: not at all 2. Feeling down, depressed, or hopeless: not at all 3. Trouble falling or staying asleep, or sleeping too much: not at all 4. Feeling tired or having little energy: not at all 5. Poor appetite or overeating: not at all 6. Feeling bad about yourself - or that you are a failure or have let yourself or your family down: not at all 7. Trouble concentrating on things, such as reading the newspaper or watching television: not at all 8. Moving or speaking so slowly that other people could have noticed. Or the opposite - being so fidgety or restless that you have been moving around a lot more than usual: not at all 9. Thoughts that you would be better off or of hurting yourself in some way: not at all Total score: 0 Depression Screening Interpretation: Negative Depression Screening Done: Yes Source: Developed by Drs. Bill Shepard, Shannan Hannah, Barry Krishnamurhty and colleagues, with an educational carolina from [employer]. Thrive Questionnaire Date Thrive assessed: 06/04/24 I am a: Patient What is your living situation today?: I have a steady place to live Within the past 12 months, did the food you bought not last and you didn't have the money to get more?: Never true Within the past 12 months, did you worry whether your food would run out before you got money to buy more?: Never true Do you have trouble paying for medicines?: No Do you have trouble getting transportation to medical appointments?: No Do you have trouble paying your heating and electricity bill?: No Do you have trouble taking care of your child, family member or friend?: No Do you have trouble with day-to-day activities such as bathing, preparing meals, shopping, managing finances, etc.?: No Are you currently unemployed and looking for a job?: No Are you interested in more education?: No Please select the resources that you would like help with: None Currently or been in a relationship where the following occur: No concerns reported THRIVE Score: 0 AUDIT C Alcohol Use Questionnaire (AUDIT-C) 1. How often do you have a drink containing alcohol?: Never Total Score: 0 JUNI-7 AMB Questionnaire JUNI-7 Date JUNI - 7 assessed: 06/04/24 Feeling nervous, anxious, or on edge: 0 = Not at all Not being able to stop or control worryin = Not at all Worrying too much about different things: 0 = Not at all Trouble relaxin = Not at all Being so restless that it is hard to sit still: 0 = Not at all Becoming easily annoyed or irritable: 0 = Not at all Feeling afraid as if something awful might happen: 0 = Not at all Total JUNI-7 score (0-4 normal; 5-9 mild; 10-14 moderate; 15-21 severe): 0 Source: Developed by Drs. Bill Shepard, Shannan Hannah, Barry Krishnamurthy and colleagues, with an educational carolina from [employer]. Physical exam (Primary Care) Vital Signs: Last Vital Signs Temp 97.1 F 06/04/24 11:36 Pulse 97 06/04/24 11:36 BP 130/72 06/04/24 11:36 Pulse Ox 97 06/04/24 11:36 Oxygen Delivery Method Room Air 06/04/24 11:36 Care Plan Goal for BP management: <130/80 at goal today BMI result Body Mass Index 33.7 BMI Assessment/Plan discussion: High BMI High, discussed plan: lifestyle, weight reduction, dietary, physical activity and alcohol moderation Tobacco/Smoking Status: Tobacco use Status Tobacco use date assessed 06/04/24 06/04/24 11:43 Patient Tobacco Use Status Never used Tobacco 06/04/24 11:43 e-Cigarette/Vaping Use Never Used 06/04/24 11:43 PHQ-9: PHQ-9 Score PHQ-9: Total score 0 06/04/24 11:43 Depression Screening Interpretation: Negative Thrive Assessment: Date of Thrive Assessment Date Thrive assessed 06/04/24 06/04/24 11:43 Currently or been in a relationship where the following occur: No concerns reported Coding Level of Care Code Est Pt Level 4 (39929) Complex EM visit Add On G2211 Diagnoses Chronic multifocal osteomyelitis of right foot M86.371 Laterality: right Osteomyelitis location: foot Osteomyelitis type: chronic multifocal Uncontrolled type 2 diabetes mellitus with hyperglycemia E11.65 Diabetes mellitus type: type 2 Osteomyelitis of right foot, unspecified type M86.9 Osteomyelitis type: unspecified type Diabetic ulcer of right midfoot associated with type 2 diabetes mellitus, with fat layer exposed E11.621; L97.412 Diabetic foot ulcer location: midfoot Diabetes mellitus type: type 2 Non-pressure ulcer stage: with fat layer exposed Both eyes affected by mild nonproliferative diabetic retinopathy with macular edema, associated with type 2 diabetes mellitus E11.3213 Diabetic retinopathy severity: with mild nonproliferative retinopathy Diabetes mellitus macular edema: with macular edema Laterality: bilateral Type 2 diabetes mellitus with hyperglycemia, with long-term current use of insulin E11.65; Z79.4 Type 2 diabetes mellitus with diabetic polyneuropathy, with long-term current use of insulin E11.42; Z79.4 Diabetes mellitus [facility] use: with [facility] use Assessment & Plan Assessment & Plan (1) Osteomyelitis: Comment: He has resolved Citrobacter koseri bacteremia and wound with OM appears improved. Code(s): M86.9 - Osteomyelitis, unspecified Category: Medical Qualifiers: Laterality: right Osteomyelitis location: foot Osteomyelitis type: chronic multifocal Qualified Code(s): M86.371 - Chronic multifocal osteomyelitis, right ankle and foot Plan: Currently being followed by wound center goes every Saturday for wound care and dressing changes. His son helps him at home daily with dressing changes. He is following up as needed with general surgery last appointment this month. Wound is improving and healing. He just finished his course of Levaquin. Condition is stable will continue to monitor (2) Uncontrolled diabetes mellitus with hyperglycemia: Code(s): E11.65 - Type 2 diabetes mellitus with hyperglycemia Category: Medical Qualifiers: Diabetes mellitus type: type 2 Qualified Code(s): E11.65 - Type 2 diabetes mellitus with hyperglycemia Plan: Patient currently on long-acting insulin glargine 30 units at bedtime, lispro sliding scale taking as prescribed. Condition is chronic and stable will continue to monitor. (3) Foot osteomyelitis, right: Code(s): M86.9 - Osteomyelitis, unspecified Category: Surgical Qualifiers: Osteomyelitis type: unspecified type Qualified Code(s): M86.9 - Osteomyelitis, unspecified Plan: Condition is improving. Will continue to monitor. (4) Diabetic ulcer of right foot: Code(s): E11.621 - Type 2 diabetes mellitus with foot ulcer; L97.519 - Non-pressure chronic ulcer of other part of right foot with unspecified severity Category: Medical Qualifiers: Diabetic foot ulcer location: midfoot Diabetes mellitus type: type 2 Non-pressure ulcer stage: with fat layer exposed Qualified Code(s): E11.621 - Type 2 diabetes mellitus with foot ulcer; L97.412 - Non-pressure chronic ulcer of right heel and midfoot with fat layer exposed Plan: Condition is improving. Will continue to monitor. (5) Diabetic retinopathy associated with type 2 diabetes mellitus: Code(s): E11.319 - Type 2 diabetes mellitus with unspecified diabetic retinopathy without macular edema Category: Medical Qualifiers: Diabetic retinopathy severity: with mild nonproliferative retinopathy Diabetes mellitus macular edema: with macular edema Laterality: bilateral Qualified Code(s): E11.3213 - Type 2 diabetes mellitus with mild nonproliferative diabetic retinopathy with macular edema, bilateral Plan: Continue current regimen. See above. Condition is chronic and stable. (6) Type 2 diabetes mellitus with hyperglycemia, with long-term current use of insulin: Code(s): E11.65 - Type 2 diabetes mellitus with hyperglycemia; Z79.4 - residential (current) use of insulin Category: Medical Plan: Continue current regimen. See above. Condition is chronic and stable. (7) Type 2 diabetes mellitus with diabetic polyneuropathy: Code(s): E11.42 - Type 2 diabetes mellitus with diabetic polyneuropathy Category: Medical Qualifiers: Diabetes mellitus [facility] insulin use: with [facility] use Qualified Code(s): E11.42 - Type 2 diabetes mellitus with diabetic polyneuropathy; Z79.4 - residential (current) use of insulin Plan: Continue current regimen. See above. Condition is chronic and stable. Plan Plan - Continue local wound care with Silveralginate dressing. - Follow-up visits at the wound clinic every Saturday to monitor healing. - Monitor blood glucose levels to maintain better control and support wound healing. - Consider psychiatric or community support for unemployment, given the impact on physical health and activity levels. - Ensure patient's son is equipped and educated for ongoing dressing management. Patient Instructions: Patient Instructions - Continue daily dressing changes as instructed. - Attend all scheduled wound care appointments. - Monitor blood glucose regularly. - Keep a log of blood glucose readings for review in follow-up visits. - Seek early medical attention if signs of infection reappear. - Explore social security options for financial support. Scribe Plan - Not visible on output: History of Present Illness The patient is a 48-year-old male presenting with a follow-up for a diabetic foot ulcer with a history of osteomyelitis. The ulcer developed after a minor injury during a trip to [place], where the patient was exposed to unsanitary conditions. The wound has been present since November. The patient reports prior surgical intervention by Dr. Laboy on April 21, and he received wound care since then. Previously, the patient was treated with Levofloxacin, which has been discontinued. Dressing changes are conducted daily by the patient's son, with visits to the wound clinic every Saturday. The patient reports significant improvement and healing in the wound since the surgery. Social History - Lives with his son. - Unemployed due to medical issues. - Previous employment history is unspecified, but considering social security. - Son assists with daily wound care. - Diabetic for over 21 years. - Suffered diabetic complications, including previous fractures. - Difficulty in pursuing social security benefits despite unemployment. Review of Systems - Musculoskeletal: Denies current pain in the affected foot. Physical Exam Appearance: Alert. Oriented X3. No acute distress. Head: Normal external exam. Normocephalic. Atraumatic. Eyes: Pupils are equal, round, and reactive to light. Extraocular movements intact. Conjunctiva and sclera normal. Eyelids normal. Ears: External auditory canal normal. Throat: Pharynx normal. Uvula midline. Moist mucous membranes. Neck: Normal inspection. Neck supple. Full range of motion. Cardiovascular: Normal heart rate and rhythm. Respiratory: No respiratory distress. Painless inspiration. Abdomen: Soft and nontender. Bowel sounds normal in all 4 quadrants. No distention noted. No organomegaly noted. No visible injury noted. Back: Full range of motion noted. Skin: Skin warm and dry. Normal skin color. Normal skin turgor. To right foot dorsal lateral aspect patient has diabetic foot ulcer with good granulation tissue. There is no surrounding erythema, induration, fluctuance, purulent drainage, foul odor or signs of acute or active infection. No additional rashes/lesions/lacerations noted. Extremities: No lower extremity edema. Extremities exhibit normal range of motion. Extremities nontender. Neuro: Oriented X 3. No motor deficit. No sensory deficit. Reflexes normal. Results - Labs: Hemoglobin A1c in April was 9.4. Plan - Continue local wound care with Silveralginate dressing. - Follow-up visits at the wound clinic every Saturday to monitor healing. - Monitor blood glucose levels to maintain better control and support wound healing. - Consider psychiatric or community support for unemployment, given the impact on physical health and activity levels. - Ensure patient's son is equipped and educated for ongoing dressing management. Patient was informed and verbally consented to the use of an ambient scribe for clinic note documentation during this visit. Discussion Notes I discussed the current status of the foot wound with the patient, noting that it looks non-infected and is healing well. We talked about the necessity of continuous follow-up with wound care specialists and the importance of maintaining blood glucose levels within a target range. We also addressed the patient's history of diabetes and the challenges posed by diabetic foot ulcers. I acknowledged the socio-economic issues related to his unemployment and discussed potential ways to manage these challenges, including social security benefits. We also reviewed the need for ongoing monitoring of the A1c and its implications for future treatment plans. Patient Instructions - Continue daily dressing changes as instructed. - Attend all scheduled wound care appointments. - Monitor blood glucose regularly. - Keep a log of blood glucose readings for review in follow-up visits. - Seek early medical attention if signs of infection reappear. - Explore social security options for financial support.
[2024-06-04 11:36] VITALS: BP 130/72; PULSE 97; TEMP 36.2; O2SAT 97; BMI 33.7
--- OUTSIDE RECORDS SUMMARY | 2024-06-04 15:22 | XMS_ITS | Encounter Summary ---
Author Organization [facility] Address [address] [place] [address] Care Team Providers Care Director Construction Services Name Role Phone Nicho Saravia Primary Care Provider [phone] Encounter Details Date Type Department Care Team (Late st Contact Info) Description 04/20/2024 Telephone Orthopedic Surgery - [place] [address] [address] Gautam Toney DPLele [address] [address] Social History Tobacco Use Types Packs/Day Years [...] on filedocumented in this encounter Care Teams Director Construction Services Relationship Specialty Start Date End Date Nicho Saravia PA [address] [place] [address] PCP - General 11/19/23 documented as of this encounter
--- OUTSIDE RECORDS SUMMARY | 2024-06-04 15:23 | XMS_ITS | Clinical Summary ---
Author Organization [address] [place] [address] Address [address] [place] [address] Phone Care Team Providers Care Associate Of Science In Nursing Name Role Phone Nicho Saravia Primary Care [...] Care Team Description 04/20/2024 Telephone Orthopedic Surgery [facility] [address] [address] Gautam Toney DPM from Last [...] age to complete this topic Care Teams Associate Of Science In Nursing Relationship Specialty Start Date End Date Nicho Saravia PA [address] [place] [id number] PCP - General 11/19/23
== END 2024-06-04 12:06 | disposition home or self-care (01) ==
LOC: HO.HMCH 11:26
PROVIDERS: PCP Physician Assistant; Visit Provider Physician Assistant Medical
DX: M86.371 Chronic multifocal osteomyelitis, right ankle and foot (principal); E11.65 Type 2 diabetes mellitus with hyperglycemia; M86.9 Osteomyelitis, unspecified; E11.621 Type 2 diabetes mellitus with foot ulcer; L97.412 Non-pressure chronic ulcer of right heel and midfoot with fat layer exposed; E11.3213 Type 2 diabetes mellitus with mild nonproliferative diabetic retinopathy with macular edema, bilateral; Z79.4 Long term (current) use of insulin; E11.42 Type 2 diabetes mellitus with diabetic polyneuropathy

== ENCOUNTER → 2024-06-04 11:26 | Outpatient (BNVA) | payer OTHER, SELFPAY | PROVIDERS: PCP Physician Assistant; Visit Provider Physician Assistant Medical | DX: M86.371 Chronic multifocal osteomyelitis, right ankle and foot (principal); E11.65 Type 2 diabetes mellitus with hyperglycemia; M86.9 Osteomyelitis, unspecified; E11.621 Type 2 diabetes mellitus with foot ulcer; L97.412 Non-pressure chronic ulcer of right heel and midfoot with fat layer exposed; E11.3213 Type 2 diabetes mellitus with mild nonproliferative diabetic retinopathy with macular edema, bilateral; E11.42 Type 2 diabetes mellitus with diabetic polyneuropathy; Z79.4 Long term (current) use of insulin | CPT/HCPCS: 99212 ==

== ENCOUNTER 2024-06-15 11:25 | Outpatient (RCR) | payer OTHER, SELFPAY | END 2024-06-29 13:35 | disposition home or self-care (01) | LOC: HO.WCC 11:25 | PROVIDERS: PCP Physician Assistant; Visit Provider Surgery | DX: E11.621 Type 2 diabetes mellitus with foot ulcer (principal); L97.512 Non-pressure chronic ulcer of other part of right foot with fat layer exposed; E11.69 Type 2 diabetes mellitus with other specified complication; M86.171 Other acute osteomyelitis, right ankle and foot; E11.51 Type 2 diabetes mellitus with diabetic peripheral angiopathy without gangrene; E11.40 Type 2 diabetes mellitus with diabetic neuropathy, unspecified; I10 Essential (primary) hypertension; Z79.2 Long term (current) use of antibiotics; Z79.4 Long term (current) use of insulin; Z79.899 Other long term (current) drug therapy; Z87.891 Personal history of nicotine dependence | CPT/HCPCS: 11042; 97597; 99212; 99213 ==

== ENCOUNTER 2024-07-06 12:48 | Outpatient (AMB) | payer OTHER, SELFPAY ==
--- NOTE | 2024-07-06 12:58 | A.OFFPC_ITS ---
Vital Signs 3 07/06/24 13:06 Height 6 ft 1 in Weight 256 lb BMI 33.8 BP 130/72 Blood Pressure Location Lt brachial Position Sitting Pulse 90 Pulse Source Pulse Oximeter Temp 97.3 F Temp Source Temporal Artery Scan Pulse Oximetry (%) 97 Oxygen Delivery Method Room Air Intake Visit Reasons: f/u DMII/ HLD Security Clerk Required: No Accompanied by: Self / Same As Patient Allergies empagliflozin [From Jardiance] Adverse Reaction (Intermediate, Verified 07/06/24 13:18) GI upset Medication List - Last Reconciled 07/06/24 by Nicho Saravia PA-C albuterol sulfate 90 mcg/actuation (Ventolin HFA) 2 puffs inhalation Q6H PRN blood sugar diagnostic (FreeStyle Lite Strips) Test once DAILY blood-glucose meter (FreeStyle Lite Meter kit) As directed blood-glucose meter,continuous (FreeStyle [place] 3 [place]) As directed blood-glucose sensor (FreeStyle [place] 3 Sensor device) Apply new sensor every 14 days cholecalciferol (vitamin D3) 25 mcg PO DAILY glucose (Dex4 Glucose) 16 grams (4 x 4 gram) PO Q15M PRN insulin glargine 30 units (0.3 mL) subcut BEDTIME 30 days insulin lispro 1 sliding scale dose subcut TID 30 days lancets (FreeStyle Lancets) As directed pen needle, diabetic (BD Ultra-Fine Edna Pen Needle) As directed Tobacco use date assessed: 06/04/24 Dental Screening Dental Screen Date: 06/04/24 HPI f/u DMII/ HLD 2 HPI0 Details Patient is a 49-year-old male here today for follow-up visit. Patient has a past medical history significant for uncontrolled type 2 diabetes, hypertension, obesity. Concern---> reports he has been having low libido as of late and is interested in checking his testosterone levels. .. Type 2 diabetes: Patient's A1c today at 8.5. Does report some dietary indiscretion lately. He has not been able to be due physically active due to continued right plantar foot pain. 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 Hyperlipidemia: Patient's most recent lipid panel showing good control of his total cholesterol and LDL. Currently not taking statin therapy at this time. Will recheck lipid panel in if LDL above 100 will consider startin statin therapy. [facility] Medical History Foot abscess Vitamin D deficiency Left rotator cuff tear Metatarsal fracture Hyperlipidemia LDL goal <100 Pilonidal cyst Type 2 diabetes mellitus with diabetic neuropathy, unspecified Obesity due to excess calories Type 2 diabetes mellitus with hyperglycemia, with long-term current use of insulin Type 2 diabetes mellitus with diabetic polyneuropathy Surgical History History of drainage of abscess Family History Father No problems noted. Mother No problems noted. Paternal Grandfather Colon cancer Social History Household Members: Children Housing: Apartment Do you presently have visiting nurse or other home services: No Alcohol intake: never Patient Tobacco Use Status: Never used Tobacco e-Cigarette/Vaping Use: Never Used Second Hand Smoke Exposure: No service: No Current occupational status: employed Cognitive needs: No Hearing needs: No Vision needs: No Questionnaire PHQ-9 Over the last 2 weeks, how often have you been bothered by any of the following problems? 1. Little interest or pleasure in doing things: not at all 2. Feeling down, depressed, or hopeless: not at all 3. Trouble falling or staying asleep, or sleeping too much: not at all 4. Feeling tired or having little energy: not at all 5. Poor appetite or overeating: not at all 6. Feeling bad about yourself - or that you are a failure or have let yourself or your family down: not at all 7. Trouble concentrating on things, such as reading the newspaper or watching television: not at all 8. Moving or speaking so slowly that other people could have noticed. Or the opposite - being so fidgety or restless that you have been moving around a lot more than usual: not at all 9. Thoughts that you would be better off or of hurting yourself in some way: not at all Total score: 0 Depression Screening Interpretation: Negative Depression Screening Done: Yes 64697 - PHQ-9 Billing: Yes Source: Developed by Drs. Bill Shepard, Barry Blackmon and colleagues, with an educational carolina from [employer]. Thrive Questionnaire Date Thrive assessed: 07/06/24 I am a: Patient What is your living situation today?: I have a steady place to live Within the past 12 months, did the food you bought not last and you didn't have the money to get more?: Never true Within the past 12 months, did you worry whether your food would run out before you got money to buy more?: Never true Do you have trouble paying for medicines?: No Do you have trouble getting transportation to medical appointments?: No Do you have trouble paying your heating and electricity bill?: No Do you have trouble taking care of your child, family member or friend?: No Do you have trouble with day-to-day activities such as bathing, preparing meals, shopping, managing finances, etc.?: No Are you currently unemployed and looking for a job?: No Are you interested in more education?: No Please select the resources that you would like help with: None Currently or been in a relationship where the following occur: No concerns reported THRIVE Score: 0 AUDIT C Alcohol Use Questionnaire (AUDIT-C) 1. How often do you have a drink containing alcohol?: Never 3. How often do you have six or more drinks on one occasion?: Never Total Score: 0 JUNI-7 AMB Questionnaire JUNI-7 Date JUNI - 7 assessed: 07/06/24 Feeling nervous, anxious, or on edge: 0 = Not at all Not being able to stop or control worryin = Not at all Worrying too much about different things: 0 = Not at all Trouble relaxin = Not at all Being so restless that it is hard to sit still: 0 = Not at all Becoming easily annoyed or irritable: 0 = Not at all Feeling afraid as if something awful might happen: 0 = Not at all Total JUNI-7 score (0-4 normal; 5-9 mild; 10-14 moderate; 15-21 severe): 0 Source: Developed by Shannan Steve Kurt Kroenke and colleagues, with an educational carolina from [employer]. JUNI-7 Assessment Billing JUNI-7 Assessment Tool: JUNI-7 Assessment 20234 Review of Systems Const Denies headache(s) Eyes Denies loss of vision ENT Denies vertigo, Denies dizziness, Denies headache(s) and Denies sore throat Card Denies chest pain, Denies leg edema and Denies lightheadedness Resp Denies cough, Denies hemoptysis and Denies wheezing GI Denies abdominal pain, Denies melena, Denies constipation, Denies diarrhea and Denies vomiting Denies dysuria, Denies urinary frequency and Denies urinary urgency Musc Denies arthralgias, Denies joint swelling, Denies numbness and Denies tingling Neuro Denies Abnormal speech present, Denies behavioral changes, Denies vertigo, Denies dizziness, Denies headache(s), Denies loss of vision, Denies memory loss, Denies numbness and Denies tingling Psych Denies anxiety, Denies behavioral changes, Denies depression, Denies memory loss and Denies panic attacks Derik/Lymph Denies easy bleeding and Denies easy bruising Aller/Immun Denies wheezing Physical exam (Primary Care) Vital Signs: Last Vital Signs Temp 97.3 F 07/06/24 13:06 Pulse 90 07/06/24 13:06 BP 130/72 07/06/24 13:06 Pulse Ox 97 07/06/24 13:06 Oxygen Delivery Method Room Air 07/06/24 13:06 BMI result Body Mass Index 33.8 Tobacco/Smoking Status: Tobacco use Status Tobacco use date assessed 06/04/24 07/06/24 12:59 Patient Tobacco Use Status Never used Tobacco 07/06/24 12:59 e-Cigarette/Vaping Use Never Used 07/06/24 12:59 PHQ-9: PHQ-9 Score PHQ-9: Total score 0 07/06/24 12:59 Depression Screening Interpretation: Negative Thrive Assessment: Date of Thrive Assessment Date Thrive assessed 07/06/24 07/06/24 12:59 Currently or been in a relationship where the following occur: No concerns reported Const General: healthy appearing, no acute distress, alert and awake Nutritional Appearance: well nourished Orientation/consciousness: oriented to person, oriented to place and oriented to time HENMT Ears: TM's normal bilaterally General nose exam: Normal nasal mucous membranes and turbinates present Eyes Conjunctivae: conjunctivae normal Sclerae: sclerae normal Pupils: Equal, round and reactive pupils present Neck Neck: Yes no lymphadenopathy and Yes no JVD Thyroid: Thyroid normal Carotids: no bruits Resp Effort & Inspection: normal respiratory effort and not tachypneic Auscultation: no crackles, no rales, no rhonchi and no wheezes Cardio Rate: regular rate Rhythm: regular rhythm Heart sounds: no murmurs and normal S1 and S2 GI Palpation (GI): Soft to palpation, nontender, no hepatomegaly and no splenomegaly Auscultation: normal bowel sounds Skin General skin exam: no rashes or lesions noted and dry skin Neuro General: oriented to person, oriented to place and oriented to time Cranial nerves: Yes Equal, round and reactive pupils present Speech: No Abnormal speech present Gait exam (Neuro): Normal gait present Motor exam (neuro): no tremor noted Extrem Right upper extremity: full ROM Left upper extremity: full ROM Right lower extremity: full ROM; no edema Left lower extremity: full ROM; no edema Ankle/foot/toe images: 2 1. SOME MILD SWELLING OVER THE PLANTAR REGION IN THE AREA NOTED. 2. HEALED INCISION Psych Mental Status: mental status grossly normal Speech and movement: Normal speech and movement present Affect: normal affect Attitude: cooperative Thought process: Normal thought process present Results AMB Hemoglobin A1c 2 AMB Hemoglobin A1c 8.5 % Last Edit by GILDA Snell on 07/06/24 13:19 Coding Level of Care Code Est Pt Level 4 (07684) Diagnoses Uncontrolled type 2 diabetes mellitus with hyperglycemia E11.65 Diabetes mellitus type: type 2 Primary hypertension I10 Hypertension type: primary hypertension Low libido R68.82 Additional Codes JUNI-7 Assessment Billing - JUNI-7 Assessment Tool: JUNI-7 Assessment 59231 ([id number]) PHQ-9 - 84589 - PHQ-9 Billing: Yes ([id number]) Assessment & Plan Assessment & Plan (1) Uncontrolled diabetes mellitus with hyperglycemia: Code(s): E11.65 - Type 2 diabetes mellitus with hyperglycemia Category: Medical Qualifiers: Diabetes mellitus type: type 2 Qualified Code(s): E11.65 - Type 2 diabetes mellitus with hyperglycemia Plan: Today's A1c 8.5. Suboptimally controlled type 2 diabetes. Will increase his long-acting insulin dose to 38 units for better glycemic control. He has tried Trulicity in the past though was not effective for him.. Goal A1c is to be below 7.0. (2) HTN (hypertension): Code(s): I10 - Essential (primary) hypertension Category: Medical Qualifiers: Hypertension type: primary hypertension Qualified Code(s): I10 - Essential (primary) hypertension Plan: Patient's blood pressure acceptable today in office. (3) Low libido: Code(s): R68.82 - Decreased libido Category: Medical Plan: Patient reports low libido lately. Likely secondary to his type 2 diabetes. He would like to check his testosterone levels Orders: Orders 2 Microalbumin, Random (w Creat) Today I10 - Essential (primary) hypertension Comprehensive [place]. Panel Fast Today I10 - Essential (primary) hypertension Complete Blood Count no Diff Today I10 - Essential (primary) hypertension Prostate Specific Antigen Scr Today I10 - Essential (primary) hypertension, Z12.5 - Encounter for screening for malignant neoplasm of prostate AMB Hemoglobin A1c Today E11.65 - Type 2 diabetes mellitus with hyperglycemia Testosterone, Free/Total Today R68.82 - Decreased libido Lipid Panel Today E78.5 - Hyperlipidemia, unspecified
[2024-07-06 13:06] VITALS: BP 130/72; PULSE 90; TEMP 36.3; O2SAT 97; BMI 33.8
--- OUTSIDE RECORDS SUMMARY | 2024-07-06 14:56 | XMS_ITS | Clinical Summary ---
Author Organization [address] [place] [address] Address [address] [place] [address] Phone Care Team Providers Care Nuclear Technologist Name Role Phone Nicho Saravia Primary Care Provider Allergies No known active allergies Medications atorvastatin (LIPITOR) 20 mg tablet Take 1 [...] Care Team Description 04/20/2024 Telephone Orthopedic Surgery [facility] [address] [facility] [address] [place] [address] Gautam Toney DPM from Last 3 Months Social History Tobacco Use Types Packs/Day Years Used Date Smoking Tobacco: Never Assessed Sex and Gender Information Value Date Recorded Sex Assigned at Not on file Legal Sex Male 2:33 PM EST Gender Identity Not on file Sexual Orientation Not on file Last Filed Vital Signs [...] 02/27/2024 9:03 AM EDT Plan of Treatment Upcoming Encounters Date Type Department Care Team (Late st Contact Info) Description 08/06/2024 2:30 PM EDT Office Visit Orthopedic Surgery - [place] [address] [phone] Gautam Toney, SHANNAN [address] [address] Health Maintenance Due Date Last Done Comments Diabetes: Annual GFR (Glomer ular Filtration Rate) 1973 Diabetes: Annual Foot Exam 1983 Diabetes: Annual Retina Eye Exam 1983 DTaP,Tdap,and Td Vaccines (1 - Tdap) 1992 Hepatitis B Vaccines (1 of 3 - 19+ 3-dose series) 1992 Pneumococcal Vaccine: 50+ Ye ars (1 of 2 - PCV) 1992 Pneumococcal Vaccine: Pediat rics (0 to 5 Years) and At-Risk Patients (6 to 64 Years) (1 of 2 - PCV) 1992 Cholesterol Screening (Lipid Panel) 06/05/2023 Colorectal [...] patient's age to complete this topic Meningococcal B Vacine Aged Out No lo nger eligible based on patient's age to complete this topic RSV Immunization Patients Un pooja 20 months Aged Out No longer eligible b ased on patient's age to complete this topic Varicella Vaccines Aged Out No longer eligible based on patient's age to complete this topic Care Teams Nuclear Technologist Relationship Specialty Start Date End Date Nicho Saravia PA [address] [place] [id number] PCP - General 11/19/23
== END 2024-07-06 13:40 | disposition home or self-care (01) ==
PROVIDERS: PCP Physician Assistant; Visit Provider Physician Assistant
DX: E11.65 Type 2 diabetes mellitus with hyperglycemia (principal); I10 Essential (primary) hypertension; R68.82 Decreased libido

== ENCOUNTER → 2024-07-06 12:48 | Outpatient (BNVA) | payer OTHER, SELFPAY | PROVIDERS: PCP Physician Assistant; Visit Provider Physician Assistant | DX: E11.65 Type 2 diabetes mellitus with hyperglycemia (principal); I10 Essential (primary) hypertension; R68.82 Decreased libido | CPT/HCPCS: 83036; 96127; 99212 ==

== ENCOUNTER 2024-11-28 07:33 | Outpatient (REF) | payer OTHER, SELFPAY ==
[2024-11-28 08:50] LABS: Hematocrit 43.6 % (42.0-52.0); Hemoglobin 14.1 g/dl (14.0-18.0); Mean Corpuscular HGB Conc 32.3 g/dl (31.0-36.0); Mean Corpuscular Hemoglobin 27.2 pg (27.0-33.0); Mean Corpuscular Volume 84.2 fL (80.0-98.0); NRBC Abs Auto 0.000 X10*3/uL (0.0-0.012); NRBC Pct Auto 0.0 /100WBC (0.0-0.2); Platelet Count 239 X10*3/uL (160-400); Red Blood Count 5.18 X10*6/uL (4.60-5.80); White Blood Count 6.6 X10*3/uL (4.8-10.8)
[2024-11-28 09:14] LABS: Alanine Aminotransferase 21 U/L (0-40); Albumin Level 4.2 g/dL (3.5-5.0); Alkaline Phosphatase 76 U/L (39-117); Anion Gap 11 (12-20); Aspartate Amino Transferase 18 U/L (5-37); Blood Urea Nitrogen 12 mg/dL (9-16); Calcium 9.2 mg/dL (8.4-10.2); Carbon Dioxide 24 mmol/L (22-29); Chloride 112 mmol/L (96-108); Cholesterol 196 mg/dL (<200); Estimated Glomerular Filt Rate > 60; HDL Cholesterol 50 mg/dL (>40); Potassium 4.6 mmol/L (3.3-5.1); Sodium 142 mmol/L (135-145); Total Protein 7.5 g/dL (6.5-8.0); Triglycerides 106 mg/dL (<150)
[2024-11-28 10:47] LABS: Microalbum/Creatinine Ratio Ur 34.4 ug/mg cr (<30)
== END 2024-11-28 07:34 | disposition home or self-care (01) ==
LOC: HO.LAB 07:33
PROVIDERS: PCP Physician Assistant; Visit Provider Physician Assistant
DX: E11.42 Type 2 diabetes mellitus with diabetic polyneuropathy (principal); I10 Essential (primary) hypertension; R68.82 Decreased libido; E78.5 Hyperlipidemia, unspecified; Z79.4 Long term (current) use of insulin; Z12.5 Encounter for screening for malignant neoplasm of prostate
CPT/HCPCS: 36415; 80053; 80061; 82043; 82570; 84153; 84402; 84403; 85027

== ENCOUNTER 2024-12-30 11:43 | Outpatient (AMB) | payer OTHER, SELFPAY ==
--- NOTE | 2024-12-30 11:46 | A.OFFPC_ITS ---
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: No Accompanied by: Self / Same As Patient Allergies empagliflozin (From Jardiance) Adverse Reaction (Intermediate, Verified 12/30/24 11:55) GI upset Medication List - Last Reconciled 12/30/24 by Nicho Saravia PA-C albuterol sulfate 90 mcg/actuation (Ventolin HFA) 2 puffs inhalation Q6H PRN atorvastatin (Lipitor) 20 mg PO DAILY 90 days blood sugar diagnostic (FreeStyle Lite Strips) Test once DAILY blood-glucose meter (FreeStyle Lite Meter kit) As directed blood-glucose sensor (FreeStyle Clovis 3 Sensor device) Apply new sensor every 14 days blood-glucose,jumpbasting collar baster,cont (FreeStyle Clovis 3 [place]) As directed cholecalciferol (vitamin D3) 25 mcg PO DAILY glucose (Dex4 Glucose) 16 grams (4 x 4 gram) PO Q15M PRN insulin glargine 30 units (0.3 mL) subcut BEDTIME 30 days insulin lispro 1 sliding scale dose subcut TID 30 days lancets (FreeStyle Lancets) As directed pen needle, diabetic (BD Ultra-Fine Edna Pen Needle) As directed Tobacco use date assessed: 12/30/24 Dental Screening Dental Screen Date: 12/30/24 Did you have a dental visit in the last 12 months?: Yes Did you have a dental problem in the last 6 months where you did not have access to dental care?: No Was dental information given to patient?: Patient has dentist HPI f/u DMII HPI Details Patient is a 49-year-old male here today for follow-up visit. Patient has a past medical history significant for uncontrolled type 2 diabetes, hypertension, obesity. .. 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 Has been using long- acting and short-acting preprandial insulin. Has gained weight since being more consistent with his insulin. He is considering a GLP 1 to help with weight reduction. . Does report some dietary indiscretion lately. He has not been able to be due physically active due to continued right plantar foot pain. 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 He has return back to working full-time in still does have pain in his right foot. Otherwise no signs of infection at this time. .. Hyperlipidemia: Patient's most recent lipid panel showing good control of his total cholesterol and LDL. Currently not taking statin therapy at this time. Will recheck lipid panel in if LDL above 100 will consider startin statin therapy. [facility] Medical History (Updated 12/30/24 @ 13:17 by Nicho Saravia PA-C) Foot abscess Vitamin D deficiency Metatarsal fracture Hyperlipidemia LDL goal <100 Pilonidal cyst Type 2 diabetes mellitus with diabetic neuropathy, unspecified Obesity due to excess calories Type 2 diabetes mellitus with hyperglycemia, with long-term current use of insulin Type 2 diabetes mellitus with diabetic polyneuropathy Surgical History History of drainage of abscess Family History Father No problems noted. Mother No problems noted. Paternal Grandfather Colon cancer Social History Household Members: Children Housing: Apartment Do you presently have visiting nurse or other home services: No Alcohol intake: never Patient Tobacco Use Status: Never used Tobacco e-Cigarette/Vaping Use: Never Used Second Hand Smoke Exposure: No service: No Current occupational status: employed Cognitive needs: No Hearing needs: No Vision needs: No Questionnaire PHQ-9 Over the last 2 weeks, how often have you been bothered by any of the following problems? 1. Little interest or pleasure in doing things: several days 2. Feeling down, depressed, or hopeless: not at all 3. Trouble falling or staying asleep, or sleeping too much: not at all 4. Feeling tired or having little energy: not at all 5. Poor appetite or overeating: not at all 6. Feeling bad about yourself - or that you are a failure or have let yourself or your family down: not at all 7. Trouble concentrating on things, such as reading the newspaper or watching television: not at all 8. Moving or speaking so slowly that other people could have noticed. Or the opposite - being so fidgety or restless that you have been moving around a lot more than usual: not at all 9. Thoughts that you would be better off or of hurting yourself in some way: not at all Total score: 1 Source: Developed by Drs. Bill Shepard, Shannan Hannah, Barry Krishnamurthy and colleagues, with an educational carolina from [employer]. Thrive Questionnaire Date Thrive assessed: 12/30/24 I am a: Patient What is your living situation today?: I choose not to answer this question Within the past 12 months, did the food you bought not last and you didn't have the money to get more?: I choose not to answer this question Within the past 12 months, did you worry whether your food would run out before you got money to buy more?: I choose not to answer this question Do you have trouble paying for medicines?: I choose not to answer this question Do you have trouble getting transportation to medical appointments?: I choose not to answer this question Do you have trouble paying your heating and electricity bill?: I choose not to answer this question Do you have trouble taking care of your child, family member or friend?: I choose not to answer this question Do you have trouble with day-to-day activities such as bathing, preparing meals, shopping, managing finances, etc.?: I choose not to answer this question Are you currently unemployed and looking for a job?: I choose not to answer this question Are you interested in more education?: I choose not to answer this question THRIVE Score: 0 AUDIT C Alcohol Use Questionnaire (AUDIT-C) 1. How often do you have a drink containing alcohol?: Never 3. How often do you have six or more drinks on one occasion?: Never Total Score: 0 JUNI-7 AMB Questionnaire JUNI-7 Date JUNI - 7 assessed: 07/06/24 Feeling nervous, anxious, or on edge: 0 = Not at all Not being able to stop or control worryin = Not at all Worrying too much about different things: 0 = Not at all Trouble relaxin = Not at all Being so restless that it is hard to sit still: 0 = Not at all Becoming easily annoyed or irritable: 0 = Not at all Feeling afraid as if something awful might happen: 0 = Not at all Total JUNI-7 score (0-4 normal; 5-9 mild; 10-14 moderate; 15-21 severe): 0 Source: Developed by Drs. Bill Shepard, Shannan Hannah, Barry Krishnamurthy and colleagues, with an educational carolina from [employer]. Review of Systems Const Denies headache(s) Eyes Denies loss of vision ENT Denies vertigo, Denies dizziness, Denies headache(s) and Denies sore throat Card Denies chest pain, Denies leg edema and Denies lightheadedness Resp Denies cough, Denies hemoptysis and Denies wheezing GI Denies abdominal pain, Denies melena, Denies constipation, Denies diarrhea and Denies vomiting Denies dysuria, Denies urinary frequency and Denies urinary urgency Musc Denies arthralgias, Denies joint swelling, Denies numbness and Denies tingling Neuro Denies Abnormal speech present, Denies behavioral changes, Denies vertigo, Denies dizziness, Denies headache(s), Denies loss of vision, Denies memory loss, Denies numbness and Denies tingling Psych Denies anxiety, Denies behavioral changes, Denies depression, Denies memory loss and Denies panic attacks Derik/Lymph Denies easy bleeding and Denies easy bruising Aller/Immun Denies wheezing Physical exam (Primary Care) Vital Signs: Last Vital Signs Pulse 78 12/30/24 11:47 BP 132/66 12/30/24 11:47 Pulse Ox 97 12/30/24 11:47 Oxygen Delivery Method Room Air 12/30/24 11:47 BMI result Body Mass Index 34.6 BMI Assessment/Plan discussion: High BMI High, discussed plan: lifestyle, weight reduction, dietary and physical activity Tobacco/Smoking Status: Tobacco use Status Tobacco use date assessed 12/30/24 12/30/24 11:48 Patient Tobacco Use Status Never used Tobacco 12/30/24 11:48 e-Cigarette/Vaping Use Never Used 12/30/24 11:48 PHQ-9: PHQ-9 Score PHQ-9: Total score 1 12/30/24 12:00 Thrive Assessment: Date of Thrive Assessment Date Thrive assessed 12/30/24 12/30/24 11:48 Const Other: OBESE General: healthy appearing, no acute distress, alert and awake Nutritional Appearance: well nourished Orientation/consciousness: oriented to person, oriented to place and oriented to time HENMT Ears: TM's normal bilaterally General nose exam: Normal nasal mucous membranes and turbinates present Eyes Conjunctivae: conjunctivae normal Sclerae: sclerae normal Pupils: Equal, round and reactive pupils present Neck Neck: Yes no lymphadenopathy and Yes no JVD Thyroid: Thyroid normal Carotids: no bruits Resp Effort & Inspection: normal respiratory effort and not tachypneic Auscultation: no crackles, no rales, no rhonchi and no wheezes Cardio Rate: regular rate Rhythm: regular rhythm Heart sounds: no murmurs and normal S1 and S2 GI Palpation (GI): Soft to palpation, nontender, no hepatomegaly and no splenomegaly Auscultation: normal bowel sounds Skin General skin exam: no rashes or lesions noted and dry skin Neuro General: oriented to person, oriented to place and oriented to time Cranial nerves: Yes Equal, round and reactive pupils present Speech: No Abnormal speech present Gait exam (Neuro): Normal gait present Motor exam (neuro): no tremor noted Extrem Right upper extremity: full ROM Left upper extremity: full ROM Right lower extremity: full ROM; no edema Left lower extremity: full ROM; no edema Psych Mental Status: mental status grossly normal Speech and movement: Normal speech and movement present Affect: normal affect Attitude: cooperative Thought process: Normal thought process present Coding Level of Care Code Est Pt Level 4 (15045) Diagnoses Uncontrolled type 2 diabetes mellitus with hyperglycemia E11.65 Diabetes mellitus type: type 2 Primary hypertension I10 Hypertension type: primary hypertension Osteomyelitis of right foot, unspecified type M86.9 Osteomyelitis type: unspecified type Class 2 obesity E66.812 Assessment & Plan Assessment & Plan (1) Uncontrolled diabetes mellitus with hyperglycemia: Code(s): E11.65 - Type 2 diabetes mellitus with hyperglycemia Category: Medical Qualifiers: Diabetes mellitus type: type 2 Qualified Code(s): E11.65 - Type 2 diabetes mellitus with hyperglycemia Plan: Most recent A1c at 8.5, Suboptimally controlled type 2 diabetes. He continues on long-acting insulin and preprandial insulin. He reports his blood sugars are 130s to 190s. He is interested in starting a alternative GLP 1 though still considering. Goal A1c is to be below 7.0. (2) HTN (hypertension): Code(s): I10 - Essential (primary) hypertension Category: Medical Qualifiers: Hypertension type: primary hypertension Qualified Code(s): I10 - Essential (primary) hypertension Plan: Patient's blood pressure acceptable today in office. (3) Foot osteomyelitis, right: Code(s): M86.9 - Osteomyelitis, unspecified Category: Surgical Qualifiers: Osteomyelitis type: unspecified type Qualified Code(s): M86.9 - Osteomyelitis, unspecified Plan: The patient is advised to consider FMLA for intermittent leave due to osteomyelitis-related pain, allowing for flexibility in work attendance without risking job security. (4) Class 2 obesity: Code(s): E66.812 - Obesity, class 2 Category: Medical Plan: Patient understands his BMI is over 30, has gained weight since been more consistent with insulin therapy. Has not been able to be physically active due to his right foot pain Orders: Orders Lipid Panel Today E78.5 - Hyperlipidemia, unspecified Hemoglobin A1c Today E11.42 - Type 2 diabetes mellitus with diabetic polyneuropathy, Z79.4 - technician terminal and repeater (current) use of insulin Medications: Refilled albuterol sulfate 90 mcg/actuation (Ventolin HFA) 2 puffs inhalation Q6H PRN 8.5 grams 3RF shortness of breath or wheezing J45.20 - Mild intermittent asthma, uncomplicated blood-glucose sensor (FreeStyle Clovis 3 Sensor device) Apply new sensor every 14 days 6 ea 11RF E11.42 - Type 2 diabetes mellitus with diabetic polyneuropathy, Z79.4 - technician terminal and repeater (current) use of insulin blood sugar diagnostic (FreeStyle Lite Strips) Test once DAILY 100 ea 3RF E11.65 - Type 2 diabetes mellitus with hyperglycemia, Z79.4 - technician terminal and repeater (current) use of insulin
[2024-12-30 11:47] VITALS: BP 132/66; PULSE 78; O2SAT 97; BMI 34.6
--- OUTSIDE RECORDS SUMMARY | 2024-12-30 12:39 | XMS_ITS | Clinical Summary ---
Author Organization [address] [facility] Address [address] [place] [address] Phone Care Team Providers Care Animal Control Officer Name Role Phone Nicho Saravia Primary Care [...] Pilonidal cyst 12/13/2023 Type 2 diabetes mellitus wit h diabetic neuropathy (CMS/[facility] V24, CMS/[facility] V28) 12/13/2023 Vitamin D deficiency 12/13/2023 Social History Tobacco Use Types Packs/Day Years [...] - - Weight 111 kg (245 lb) 08/20/2024 2:09 PM EDT Height 185.4 cm (6' 1 ) 08/20/2024 2:09 PM EDT Body Mass Index 32.32 08/20/2024 2:09 PM EDT Plan of Treatment Health Maintenance Due Date Last Done Comments Diabetes: Annual GFR (Glomer ular Filtration Rate) 1973 Diabetes: Annual Foot Exam 1983 Diabetes: Annual Retina Eye Exam 1983 Hepatitis B Vaccines (1 of 3 - 19+ 3-dose series) 1992 Pneumococcal Vaccine: 50+ Ye ars (1 of 2 - PCV) 1992 Cholesterol Screening (Lipid Panel) 06/05/2023 Colorectal Cancer Screening: Colonoscopy 06/05/2023 HIV Screening 06/05/2023 Hepatitis C Screening 06/05/2023 Social Influencers of Health Screening 06/05/2023 Zoster Vaccines (1 of 2) 2023 COVID-19 Vaccine (1 - 2023-2 5 season) 2024 Diabetes: Annual Urine Albumin-Creatinine Ratio (uACR) 02/13/2024 Diabetes: Blood Sugar Contro l Test (HGBA1C) 02/13/2024 Depression Screening 05/06/2024 DTaP,Tdap,and Td Vaccines (2 - Td or Tdap) 01/04/2025 01/04/2015 Influenza Vaccine (#1) 2025 HIB Vaccines Aged Out No longer eligi [...] age to complete this topic Meningococcal B Vaccine Aged Out No l onger eligible based on patient's age to complete this topic RSV Immunization Patients Un pooja 20 months Aged Out No longer eligible b ased on patient's age to complete this topic Varicella Vaccines Aged Out No longer eligible based on patient's age to complete this topic Insurance [facility] Care Teams Animal Control Officer Relationship Specialty Start Date End Date Nicho Saravia PA [address] [place] [address] PCP - General 11/19/23
== END 2024-12-30 12:22 | disposition home or self-care (01) ==
LOC: HO.HMCH 11:44
PROVIDERS: PCP Physician Assistant; Visit Provider Physician Assistant
DX: E11.65 Type 2 diabetes mellitus with hyperglycemia (principal); M86.9 Osteomyelitis, unspecified; E66.812 Obesity, class 2; Z68.34 Body mass index [BMI] 34.0-34.9, adult; I10 Essential (primary) hypertension

== ENCOUNTER → 2024-12-30 11:43 | Outpatient (BNVA) | payer OTHER, SELFPAY | PROVIDERS: PCP Physician Assistant; Visit Provider Physician Assistant | DX: E11.65 Type 2 diabetes mellitus with hyperglycemia (principal); E11.69 Type 2 diabetes mellitus with other specified complication; E11.42 Type 2 diabetes mellitus with diabetic polyneuropathy; J45.20 Mild intermittent asthma, uncomplicated; M86.9 Osteomyelitis, unspecified; E78.5 Hyperlipidemia, unspecified; E66.812 Obesity, class 2; Z79.4 Long term (current) use of insulin; Z68.34 Body mass index [BMI] 34.0-34.9, adult | CPT/HCPCS: 99212 ==

== ENCOUNTER 2025-03-31 07:53 | Outpatient (REF) | payer OTHER, SELFPAY ==
--- OUTSIDE RECORDS SUMMARY | 2025-03-31 08:02 | XMS_ITS | Clinical Summary ---
Author Organization [address] [facility] Address [address] [place] [address] Phone Care Team Providers Care Parish Nurse Name Role Phone Nicho Saravia Primary Care [...] 2 diabetes mellitus wit h diabetic neuropathy (CMS/[facility] V24, CMS/[facility] V28) 12/13/2023 Vitamin D deficiency [...] Health Maintenance Due Date Last Done Comments Colorectal Cancer Screening: Colonoscopy 1973 Diabetes: Annual GFR (Glomer ular Filtration Rate) 1973 Diabetes: Annual Foot Exam 1983 Diabetes: Annual Retina Eye Exam 1983 Hepatitis B Vaccines (1 of 3 - 19+ 3-dose series) 1992 Pneumococcal Vaccine: 50+ Ye ars (1 of 2 - PCV) 1992 Cholesterol Screening (Lipid Panel) 06/05/2023 HIV Screening 06/05/2023 Hepatitis C Screening 06/05/2023 Social Influencers of Health Screening 06/05/2023 RSV Immunization Adult Patie nts (1 - Risk 50-74 years 1-dose series) 2023 Zoster Vaccines (1 of 2) 2023 Diabetes: Annual Urine Albumin-Creatinine Ratio (uACR) 02/13/2024 Diabetes: Blood Sugar Contro l Test (HGBA1C) 02/13/2024 Depression Screening 05/06/2024 COVID-19 Vaccine (1 - 2024-2 6 season) 2025 DTaP,Tdap,and Td Vaccines (2 - Td or [...] patient's age to complete this topic Insurance [facility] [employer] Care Teams Parish Nurse Relationship Specialty Start Date End Date Nicho Saravia PA [address] [place] [id number] PCP - General 11/19/23
[2025-03-31 09:00] LABS: Cholesterol 140 mg/dL (<200); HDL Cholesterol 37 mg/dL (>40); Triglycerides 80 mg/dL (<150)
== END 2025-03-31 07:54 | disposition home or self-care (01) ==
LOC: HO.LAB 07:53
PROVIDERS: PCP Physician Assistant; Visit Provider Physician Assistant
DX: E11.42 Type 2 diabetes mellitus with diabetic polyneuropathy (principal); E78.5 Hyperlipidemia, unspecified; I10 Essential (primary) hypertension; M86.9 Osteomyelitis, unspecified; E66.812 Obesity, class 2; Z79.4 Long term (current) use of insulin; Z79.899 Other long term (current) drug therapy; Z68.34 Body mass index [BMI] 34.0-34.9, adult
CPT/HCPCS: 36415; 80061; 83036; 99212

== ENCOUNTER 2025-03-31 09:53 | Outpatient (AMB) | payer OTHER, SELFPAY ==
[2025-03-31 09:56] VITALS: BP 142/76; PULSE 80; TEMP 36.2; O2SAT 96; BMI 34.9
--- NOTE | 2025-03-31 09:56 | A.OFFPC_ITS ---
Vital Signs 03/31/25 09:56 Height 6 ft 1 in Weight 264 lb 6 oz BMI 34.9 BP 142/76 H Blood Pressure Location Lt brachial Position Sitting Pulse 80 Pulse Source Pulse Oximeter Temp 97.1 F Temp Source Temporal Artery Scan Pulse Oximetry (%) 96 Oxygen Delivery Method Room Air Intake Visit Reasons: 3 mo f/u DMII Allergies empagliflozin (From Jardiance) Adverse Reaction (Intermediate, Verified 03/31/25 10:06) GI upset Medication List - Last Reconciled 03/31/25 by Nicho Saravia PA-C albuterol sulfate 90 mcg/actuation (Ventolin HFA) 2 puffs inhalation Q6H PRN atorvastatin (Lipitor) 20 mg PO DAILY 90 days blood sugar diagnostic (FreeStyle Lite Strips) Test once DAILY blood-glucose meter (FreeStyle Lite Meter kit) As directed blood-glucose sensor (FreeStyle Clovis 3 Sensor device) Apply new sensor every 14 days blood-glucose,auto dealer,cont (FreeStyle Clovis 3 [place]) As directed [D3 25 MCG (1000 UT) Oral Capsule Take 1 capsule by mouth once daily] glucose (Dex4 Glucose) 16 grams (4 x 4 gram) PO Q15M PRN ibuprofen 800 mg PO Q8H PRN 10 days insulin glargine (Lantus Solostar U-100 Insulin) 30 units (0.3 mL) subcut QAM 30 days insulin lispro 1 sliding scale dose subcut TID 30 days lancets (FreeStyle Lancets) As directed pen needle, diabetic As directed- QID Tobacco use date assessed: 03/31/25 Dental Screening Dental Screen Date: 03/31/25 Did you have a dental visit in the last 12 months?: Yes Did you have a dental problem in the last 6 months where you did not have access to dental care?: No Was dental information given to patient?: Patient has dentist HPI 3 mo f/u DMII HPI Details Patient is a 49-year-old male here today for follow-up visit. Patient has a past medical history significant for uncontrolled type 2 diabetes, hypertension, obesity. .. 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 Patient has been monitoring blood sugars and reports 130s to 180s. Has been using long-acting and short-acting preprandial insulin. Has gained weight since being more consistent with his insulin. He is considering a GLP 1 to help with weight reduction. . PLAN will increase his long-acting insulin to 36 units daily.. He has been trying to work on diabetic diet. He has not been able to be due physically active due to continued right plantar foot pain. 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 He has return back to working full-time in still does have pain in his right foot. Otherwise no signs of infection at this time. He does use ibuprofen 800 mg and as needed basis for his pain. .. Hypertension: Blood pressure elevated today in office. Will restart lisinopril 5 mg for renal protection and blood pressure control. .. Hyperlipidemia: Patient's most recent lipid panel showing good control of his total cholesterol and LDL. He continues on atorvastatin 20 mg with good effect [facility] Medical History Foot abscess Vitamin D deficiency Metatarsal fracture Hyperlipidemia LDL goal <100 Pilonidal cyst Type 2 diabetes mellitus with diabetic neuropathy, unspecified Obesity due to excess calories Type 2 diabetes mellitus with hyperglycemia, with long-term current use of insulin Type 2 diabetes mellitus with diabetic polyneuropathy Surgical History History of drainage of abscess Family History Father No problems noted. Mother No problems noted. Paternal Grandfather Colon cancer Social History Household Members: Children Housing: Apartment Do you presently have visiting nurse or other home services: No Alcohol intake: never Patient Tobacco Use Status: Never used Tobacco e-Cigarette/Vaping Use: Never Used Second Hand Smoke Exposure: No service: No Current occupational status: employed Cognitive needs: No Hearing needs: No Vision needs: No Questionnaire PHQ-9 Over the last 2 weeks, how often have you been bothered by any of the following problems? 1. Little interest or pleasure in doing things: several days 2. Feeling down, depressed, or hopeless: not at all 3. Trouble falling or staying asleep, or sleeping too much: not at all 4. Feeling tired or having little energy: not at all 5. Poor appetite or overeating: not at all 6. Feeling bad about yourself - or that you are a failure or have let yourself or your family down: not at all 7. Trouble concentrating on things, such as reading the newspaper or watching television: not at all 8. Moving or speaking so slowly that other people could have noticed. Or the opposite - being so fidgety or restless that you have been moving around a lot more than usual: not at all 9. Thoughts that you would be better off or of hurting yourself in some way: not at all Total score: 1 Depression Screening Interpretation: Negative Depression Screening Done: Yes 39314 - PHQ-9 Billing: Patient declined-do not bill Source: Developed by Drs. Bill Shepard, Shannan Hannah, Barry Krishnamurthy and colleagues, with an educational carolina from [employer]. Thrive Questionnaire Date Thrive assessed: 12/30/24 I am a: Patient What is your living situation today?: I choose not to answer this question Within the past 12 months, did the food you bought not last and you didn't have the money to get more?: I choose not to answer this question Within the past 12 months, did you worry whether your food would run out before you got money to buy more?: I choose not to answer this question Do you have trouble paying for medicines?: I choose not to answer this question Do you have trouble getting transportation to medical appointments?: I choose not to answer this question Do you have trouble paying your heating and electricity bill?: I choose not to answer this question Do you have trouble taking care of your child, family member or friend?: I choose not to answer this question Do you have trouble with day-to-day activities such as bathing, preparing meals, shopping, managing finances, etc.?: I choose not to answer this question Are you currently unemployed and looking for a job?: I choose not to answer this question Are you interested in more education?: I choose not to answer this question Please select the resources that you would like help with: None Currently or been in a relationship where the following occur: I choose not to answer THRIVE Score: 0 AUDIT C Alcohol Use Questionnaire (AUDIT-C) 1. How often do you have a drink containing alcohol?: Never 3. How often do you have six or more drinks on one occasion?: Never Total Score: 0 JUNI-7 AMB Questionnaire JUNI-7 Date JUNI - 7 assessed: 07/06/24 Feeling nervous, anxious, or on edge: 0 = Not at all Not being able to stop or control worryin = Not at all Worrying too much about different things: 0 = Not at all Trouble relaxin = Not at all Being so restless that it is hard to sit still: 0 = Not at all Becoming easily annoyed or irritable: 0 = Not at all Feeling afraid as if something awful might happen: 0 = Not at all Total JUNI-7 score (0-4 normal; 5-9 mild; 10-14 moderate; 15-21 severe): 0 Source: Developed by Drs. Bill Shepard, Shannan Hannah, Barry Krishnamurthy and colleagues, with an educational carolina from [employer]. Review of Systems Const Denies headache(s) Eyes Denies loss of vision ENT Denies vertigo, Denies dizziness, Denies headache(s) and Denies sore throat Card Denies chest pain, Denies leg edema and Denies lightheadedness Resp Denies cough, Denies hemoptysis and Denies wheezing GI Denies abdominal pain, Denies melena, Denies constipation, Denies diarrhea and Denies vomiting Denies dysuria, Denies urinary frequency and Denies urinary urgency Musc Denies arthralgias, Denies joint swelling, Denies numbness and Denies tingling Neuro Denies Abnormal speech present, Denies behavioral changes, Denies vertigo, Denies dizziness, Denies headache(s), Denies loss of vision, Denies memory loss, Denies numbness and Denies tingling Psych Denies anxiety, Denies behavioral changes, Denies depression, Denies memory loss and Denies panic attacks Derik/Lymph Denies easy bleeding and Denies easy bruising Aller/Immun Denies wheezing Physical exam (Primary Care) Vital Signs: Last Vital Signs Temp 97.1 F 03/31/25 09:56 Pulse 80 03/31/25 09:56 BP 142/76 H 03/31/25 09:56 Pulse Ox 96 03/31/25 09:56 Oxygen Delivery Method Room Air 03/31/25 09:56 BMI result Body Mass Index 34.9 BMI Assessment/Plan discussion: High BMI High, discussed plan: lifestyle, weight reduction, dietary and physical activity Tobacco/Smoking Status: Tobacco use Status Tobacco use date assessed 03/31/25 03/31/25 09:59 Patient Tobacco Use Status Never used Tobacco 03/31/25 09:59 e-Cigarette/Vaping Use Never Used 03/31/25 09:59 PHQ-9: PHQ-9 Score PHQ-9: Total score 1 03/31/25 09:59 Depression Screening Interpretation: Negative Thrive Assessment: Date of Thrive Assessment Date Thrive assessed 12/30/24 03/31/25 09:59 Currently or been in a relationship where the following occur: I choose not to answer Const General: healthy appearing, no acute distress, alert and awake Nutritional Appearance: well nourished Orientation/consciousness: oriented to person, oriented to place and oriented to time HENMT Ears: TM's normal bilaterally General nose exam: Normal nasal mucous membranes and turbinates present Eyes Conjunctivae: conjunctivae normal Sclerae: sclerae normal Pupils: Equal, round and reactive pupils present Neck Neck: Yes no lymphadenopathy and Yes no JVD Thyroid: Thyroid normal Carotids: no bruits Resp Effort & Inspection: normal respiratory effort and not tachypneic Auscultation: no crackles, no rales, no rhonchi and no wheezes Cardio Rate: regular rate Rhythm: regular rhythm Heart sounds: no murmurs and normal S1 and S2 GI Palpation (GI): Soft to palpation, nontender, no hepatomegaly and no splenomegaly Auscultation: normal bowel sounds Skin General skin exam: no rashes or lesions noted and dry skin Neuro General: oriented to person, oriented to place and oriented to time Cranial nerves: Yes Equal, round and reactive pupils present Speech: No Abnormal speech present Gait exam (Neuro): Normal gait present Motor exam (neuro): no tremor noted Extrem Right upper extremity: full ROM Left upper extremity: full ROM Right lower extremity: full ROM; no edema Left lower extremity: full ROM; no edema Psych Mental Status: mental status grossly normal Speech and movement: Normal speech and movement present Affect: normal affect Attitude: cooperative Thought process: Normal thought process present Coding Level of Care Code Est Pt Level 4 (98201) Diagnoses Primary hypertension I10 Hypertension type: primary hypertension Osteomyelitis of right foot, unspecified type M86.9 Osteomyelitis type: unspecified type Class 2 obesity E66.812 Hyperlipidemia LDL goal <100 E78.5 Assessment & Plan Assessment & Plan (1) HTN (hypertension): Code(s): I10 - Essential (primary) hypertension Category: Medical Qualifiers: Hypertension type: primary hypertension Qualified Code(s): I10 - Essential (primary) hypertension Plan: Patient's blood pressure slightly elevated today in office. Will restart lisinopril 5 mg for better blood pressure control and renal protection. Patient's blood goal to be below 140/90 (2) Foot osteomyelitis, right: Code(s): M86.9 - Osteomyelitis, unspecified Category: Surgical Qualifiers: Osteomyelitis type: unspecified type Qualified Code(s): M86.9 - Osteomyelitis, unspecified Plan: Patient has a history of right foot ulcer leading to osteomyelitis. His superficial wound has healed completely, now back at work. Still has pain in the area from standing and walking. Does use ibuprofen 800 which does seem to reduce his pain quite significantly. (3) Class 2 obesity: Code(s): E66.812 - Obesity, class 2 Category: Medical Plan: Patient understands his BMI is over 30, has gained weight since been more consistent with insulin therapy. Has not been able to be physically active due to his right foot pain (4) Hyperlipidemia LDL goal <100: Code(s): E78.5 - Hyperlipidemia, unspecified Category: Medical Plan: Patient continues on atorvastatin 20 mg, goal LDL to remain below 100. Orders: Orders Complete Blood Count no Diff Today I10 - Essential (primary) hypertension Comprehensive Edwards. 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 insulin Medications: New lisinopril 5 mg PO DAILY 90 tabs 1RF 90 days E11.42 - Type 2 diabetes mellitus with diabetic polyneuropathy, Z79.4 - skilled nursing (current) use of insulin Changed From insulin glargine (Lantus Solostar U-100 Insulin) 30 units (0.3 mL) subcut QAM 30 days 15 mL 3RF E11.65 - Type 2 diabetes mellitus with hyperglycemia, Z79.4 - skilled nursing (current) use of insulin To insulin glargine (Lantus Solostar U-100 Insulin) 36 units (0.36 mL) subcut QAM 15 mL 3RF 30 days E11.65 - Type 2 diabetes mellitus with hyperglycemia, Z79.4 - 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
== END 2025-03-31 12:51 | disposition home or self-care (01) ==
LOC: HO.HMCH 09:54
PROVIDERS: PCP Physician Assistant; Visit Provider Physician Assistant
DX: I10 Essential (primary) hypertension (principal); M86.9 Osteomyelitis, unspecified; E66.812 Obesity, class 2; Z68.34 Body mass index [BMI] 34.0-34.9, adult; E78.5 Hyperlipidemia, unspecified